=== PATIENT | male | born 1945 | race Caucasian/White ===

== ENCOUNTER 2018-05-04 06:00 | Inpatient (IN) ==
[2018-05-04] MEDS ORDERED: DUONEB (A & A) INH ONE ×2 (06:09→07:04)
--- NOTE | 2018-05-04 06:17 | PROVIDER DOCUMENTATION ---
HPI-General Adult - General Stated Complaint: sob Time Seen by Provider: 05/04/18 06:03 Source: patient Allergies/Adverse Reactions: Patient Allergies Allergy/AdvReac Type Severity Reaction Status Date / Time No Known Allergies Allergy Verified 09/17/17 15:51 Home Medications: Home Medication List Medication Instructions Recorded Confirmed Last Taken Type Propylene Glycol/Peg Oph Soln 1 drop BOTH EYES TID 09/17/17 05/04/18 09/17/17 History [Systane Eye Drops] Ranitidine [Zantac] 150 mg PO BID 09/17/17 05/04/18 09/17/17 History Amlodipine Besylate 5 mg PO QAM 02/11/18 05/04/18 Unknown History Aspirin 81 mg PO QAM 02/11/18 05/04/18 Unknown History Budesonide/Formoterol Fumarate 2 puff INH BID 02/11/18 05/04/18 Unknown History [Symbicort 160-4.5 Mcg Inhaler] Calcium Carbonate/Vitamin D3 1 each PO QAM 02/11/18 05/04/18 Unknown History [Oyster Shell 500-Vit D3 200 Tb] Clopidogrel [Plavix] 75 mg PO QAM 02/11/18 05/04/18 Unknown History Cyanocobalamin (Vitamin B-12) 500 mcg PO QAM 02/11/18 05/04/18 Unknown History [B-12] Folic Acid 2 mg PO QAM 02/11/18 05/04/18 Unknown History Multivitamin,Therapeutic [Thera] 1 each PO QAM 02/11/18 05/04/18 Unknown History Sertraline HCl 50 mg PO QAM 02/11/18 05/04/18 Unknown History Tiotropium [place] Inhaler 1 puff INH QAM 02/11/18 05/04/18 Unknown History [Spiriva] Albuterol 2.5MG/Ipratrop 0.5MG 3 ml INH RTQ4H neb 02/17/18 05/04/18 Unknown Rx [Duoneb (A & A)] Docusate Sodium 100 mg PO BID 05/04/18 05/04/18 Unknown History Guaifenesin/Pseudoephedrne HCl 1 each PO BID 05/04/18 05/04/18 Unknown History [Mucinex D ER Tablet] Protein Hydrolysate,Milk [Liquid 30 ml PO QAM 05/04/18 05/04/18 Unknown History Protein Fortifier] - History of Present Illness -Gen Adult Nature of Presenting Problems: 72 y/o M presents to the ED complaining of 1 week of worsening cough. States this began mildly and has worsened and now he feels short of breath. No fever no chest pain. Has not taken anything for his symptoms. Review of Systems - Adult - REVIEW OF SYSTEMS - ADULT Constitutional: reports: no symptoms reported Eyes: reports: no symptoms reported Ears, Nose, Mouth & Throat: reports: no symptoms reported Cardiovascular: denies: chest pain Respiratory: reports: cough, shortness of breath Gastrointestinal: reports: no symptoms reported Genitourinary: reports: no symptoms reported Musculoskeletal: reports: no symptoms reported Integumentary: reports: no symptoms reported Neurological: reports: no symptoms reported Psychiatric: reports: no symptoms reported Endocrine: reports: no symptoms reported Hematologic/Lymphatic: reports: no symptoms reported Allergic/Immunologic: reports: no symptoms reported All Other Systems: Reviewed and Negative Past History - Adult - PAST MEDICAL HISTORY-ADULT Review of Records: reports: Old Records Reviewed, Nursing Assessment Review, Medications Reviewed, Social history reviewed & non-contributory. Major Childhood Illnesses: reports: denies history Cardiovascular: reports: CHF Respiratory: reports: COPD, other (home oxygen) Gastrointestinal: reports: denies history Obstetrical/Gynecological: reports: denies history Genitourinary: reports: denies history Musculoskeletal: reports: denies history Neurological: reports: denies history Endocrine/Immune: reports: denies history Other Conditions: reports: denies history - IMMUNIZATION STATUS Childhood Immunizations: See Nurse Assessment Flu Vaccine: See Nurse Assessment - FAMILY HISTORY Family History: reviewed, not pertinent Physical Exam-General - PHYSICAL EXAM-ADULT Initial Vital Signs Reviewed: Yes - CONSTITUTIONAL General Appearance: appears well, alert, no apparent distress - EYES Eyes: PERRL/EOMI - HEAD, EARS, NOSE, MOUTH & THROAT HENMT: normocephalic/atraumatic, moist mucous membranes, normal ENT inspection - NECK Neck: non-tender, full range of motion, supple - RESPIRATORY Respiratory: chest non-tender, rhonchi (BL bases), wheezing (mild diffuse) - GASTROINTESTINAL (ABDOMEN) Abdominal Exam: non tender, soft - MUSCULOSKELETAL Back Exam: normal inspection, no vertebral tenderness Extremity: normal range of motion, non-tender, no pedal edema - SKIN Integumentary: normal color, normal turgor, warm/dry - NEUROLOGIC Neurologic: grossly normal, no motor/sensory deficits - PSYCHIATRIC Psych/Mental Status: normal mood/affect, normal thought content, normal thought process, oriented x 3 Progress - PLAN OF CARE/RESULTS Progress/Plan/Lab Results: Orders Category Date Time Status IV Insertion ORDERED Care 05/04/18 06:09 Ordered CHEST-1 VIEW [RAD] Stat Exams 05/04/18 06:09 Ordered CHEST-PORTABLE [RAD] Stat Exams 05/04/18 06:03 Ordered BASIC METABOLIC PANEL [CHEM] Stat Lab 05/04/18 06:09 Uncollected BLOOD CULTURE [BLDCUL] Stat Lab 05/04/18 06:09 Uncollected CBC WITH DIFF [HEME] Stat Lab 05/04/18 06:09 Uncollected LACTATE, PLASMA [CHEM] Stat Lab 05/04/18 06:09 Uncollected PRO B-NATRIURETIC PEPTIDE Stat Lab 05/04/18 06:09 Uncollected TROPONIN T Stat Lab 05/04/18 06:09 Uncollected Albuterol 2.5MG/Ipratrop 0.5MG [Duoneb (A & A)] Med 05/04/18 06:09 Once 3 ml INH NOW ONE Aerosol Treatments Routine Oth 05/04/18 06:10 Ordered Aerosol Treatments Stat Oth 05/04/18 06:10 Ordered EKG [EKG] Stat Ther 05/04/18 06:03 Ordered Cough and dyspnea with bronchospasm. Will treat and will further evaluate for causes including but not limited to pna, bronchitis, influenza, acs, chf exacerbation, COPD exacerbation. Result Diagrams: 05/04/18 06:40 05/04/18 07:35 - REASSESSMENT Reassessment #1 Time Reassessed: 07:05 Status: improving (Seen and examined by me. Case discussed with Dr. Novoa at shift change. Awaiting labs and likely admission for HCAP.) Reassessment #2 Time Reassessed: 07:49 Status: improving (Patient has 2 SIRS criteria (elevated RR and WBC), so makes criteria for Sepsis. Awaiting lactate and chemistry to see if has Severe Sepsis ) Reassessment #3 Time Reassessed: 08:25 Status: improving - EKG 1 Time of EKG reading by physician:: 07:48 (done at 0744) EKG Read and Signed by:: Antione Damon EKG Interpretation (*Must complete 3 of following elements*): Abnormal Rate: 82 Rhythm: NSR [place]: left QRS: RBB, other (artifact present) NV Interval: normal ST Wave: non-specific ST changes Comments: prolonged QTc (556mSec) - XRAY 1 XRAY Study: Chest Impression: Abnormal, See EMR Report (EXAM: CHEST-1 VIEW 05/04/2018 HISTORY: cough TECHNIQUE: AP portable upright at 0619 COMMENT: There is ill-defined opacity in the right lower lobe and to some extent in the left base. This has not changed significantly since 03/08/2018. It is slightly worse than on 2017. IMPRESSION: Bibasilar atelectasis and/or pneumonia. This may be superimposed on fibrosis. Electronically signed by Steve Cassidy 05/04/2018 6: 56 AM 05/04/18 0656 Interpreting Physician: Steve Cassidy MD Dictated Date/Time: 05/04/18 0655 cc: Rose Novoa MD; Stephan Wilde MD) - CONSULTS/PCP/HOSPITALIST Notification #1 *Consult/PCP/Hospitalist*: CHAIM Leary Time Discussed: 08:25 (Admit to [facility]) Consult Disposition: Will see in ED - CHANGE OF SHIFT REPORT (ED Provider) 1 Report Given and Care Transferred to:: Dr. Damon Time of Transfer: 07:00 Items Pending: Other (pending labs, CXR and final disposition) Departure - Departure Date of Disposition Decision: 05/04/18 Time of Disposition Decision: 08:25 DIAGNOSIS: HCAP (healthcare-associated pneumonia), Sepsis without acute organ dysfunction , COPD exacerbation Disposition: ADMITTED INPATIENT 09 Certified Medical Emergency: Emergent Condition: Fair Referrals and Follow-Ups: Stephan Wilde MD [Primary Care Provider] - - Critical Care Note This patient required my direct & personal management of CC.: Yes Total Time (mins): 38 Critical Care Statement: This patient required my direct personal management to treat or rule out processes, the absence of which, could potentiallly result in sudden, clinically significant life or limb threatening deterioration. Attestation - Physician/ LA Attestation Patient care was provided by Advanced Practice Provider:: No The physician spent face to face time with patient:: Yes Advanced Practice Provider documentation review:: Supervising physician onsite and consulted in the evaluation and care of this patient. The physician did have a face to face encounter with the patient.
--- NOTE | 2018-05-04 06:58 | Diag Imaging Result Doc PS360 ---
EXAM: CHEST-1 VIEW 05/04/2018 HISTORY: cough TECHNIQUE: AP portable upright at 0619 COMMENT: There is ill-defined opacity in the right lower lobe and to some extent in the left base. This has not changed significantly since 03/08/2018. It is slightly worse than on 02/17/2018. IMPRESSION: Bibasilar atelectasis and/or pneumonia. This may be superimposed on fibrosis. Electronically signed by Steve Cassidy 05/04/2018 6:56 AM
[2018-05-04] MEDS ORDERED: ZOSYN 3.375 GM in NS 50 ML IV ONE (07:01)
[2018-05-04] MEDS ORDERED: VANCOMYCIN 1 GM/NS 1 GM/250 ML IVPB IV ONE (07:01)
[2018-05-04] MEDS ORDERED: NS 1,000 ML IV ONE ×2 (07:02→08:47)
[2018-05-04] MEDS ORDERED: SOLU-MEDROL IV ONE (07:04)
[2018-05-04 07:19] LABS: BASO# 0.12 X1000 (0.0-0.2); BASO% 0.8 % (0.0-0.8); EOS# 0.74 X1000 (0.0-0.7); HEMATOCRIT 38.6 % (42.0-52.0); HEMOGLOBIN 12.1 g/dL (14.0-18.0); IMM GRAN# 0.21 X1000 (0.0-0.04); IMM GRAN% 1.4 % (0.0-0.5); LYMPH# 1.93 X1000 (1.2-3.4); LYMPH% 12.9 % (20.5-51.1); MCH 29.4 PG (27-31); MCHC 31.3 g/dL (33-37); MCV 93.9 FL (81-99); MONO# 1.88 X1000 (0.11-0.59); MONO% 12.6 % (1.7-9.3); MPV 10.3 FL (7.4-10.4); NEUT# 10.06 X1000 (1.4-6.5); NEUT% 67.3 % (42.2-75.2); PLT 426 X1000 (130-400); RBC 4.11 XMIL (4.7-6.1); RDW 14.3 % (11.5-14.5); WBC 14.94 X1000 (4.8-10.8)
[2018-05-04 07:27] LABS: ALLEN TEST YES; BE 6.7 mmoll (-3.0-3.0); BLOOD TYPE ARTERIAL; HCO3-(ACT) 30.1 mmoll (20.0-26.0); METHB 1.1 % (0.0-1.5); O2(CT) 15.8 mL/dL (15.0-23.0); O2HB 93.3 % (95.0-99.0); PO2(98.6) 65 mmHg (60-100); SAMPLE BLOOD; SAO2 96.2 % (95.0-100.0)
[2018-05-04 07:28] LABS: MODALITY CANNULA; PCO2(98.6) 53 mmHg (35-45)
--- NOTE | 2018-05-04 07:58 | EKG Report ---
Test Performed on : 05/04/2018 07:44:28 AM Test Reason : SOB Blood Pressure : / mmHG Vent. Rate : 082 BPM Atrial Rate : 082 BPM P-R Int : 132 ms QRS Dur : 132 ms QT Int : 476 ms P-R-T Axes : 000 -39 -47 degrees QTc Int : 556 ms Normal sinus rhythm. Left axis deviation Right bundle branch block Abnormal ECG When compared with ECG of 18-SEP-2017 07:43, QT has lengthened Unconfirmed Result
[2018-05-04 08:16] LABS: AGAP 10; ALB/GLOB RATIO 1.6; ALBUMIN 4.1 g/dL (3.5-5.0); ALKALINE PHOSPHATASE 107 U/L (32-122); BUN 13 mg/dL (8-22); CALCIUM 9.2 mg/dL (8.8-10.2); CHLORIDE 100 mmol/L (98-107); COSMO 282; CREATININE 0.7 mg/dL (0.7-1.2); ESTIMATED GFR > 60; GLUCOSE 114 mg/dL (70-104); GOT 16 U/L (10-34); GPT 17 U/L (10-44); POTASSIUM 4.5 mmol/L (3.5-5.1); SODIUM 141 mmol/L (136-145); TCO2 31 mmol/L (25-35); TOTAL BILIRUBIN 0.17 mg/dL (0.20-1.00); TOTAL PROTEIN 6.6 g/dL (6.3-8.3)
[2018-05-04] MEDS ORDERED: DUONEB (A & A) INH PRN (08:47)
[2018-05-04] MEDS ORDERED: LEVAQUIN 750 MG/D5W 750 MG/150 ML IVPB IV SCH (09:00)
[2018-05-04] MEDS ORDERED: ROCEPHIN 1 GM in NS 50 ML IV SCH (09:00)
--- NOTE | 2018-05-04 09:19 | HISTORY AND PHYSICAL ---
HISTORY OF PRESENT ILLNESS: The patient is from [facility], admitted on 05/04/2018. This is a 72-year-old who complains of cough, shortness of breath, and weakness. He has underlying COPD and is on oxygen at night. States for a month, he reports he has been having trouble breathing but apparently, in the last couple days, he has had more cough. He denies fever or chills or diaphoresis. He says he has a cough but not productive at this point. PAST MEDICAL HISTORY: 1. 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 2. Hypertension. 3. COPD with long history of smoking. He said he quit 6 months ago. 4. Atrial fibrillation. 5. In the emergency room, he had a chest x-ray with bibasilar atelectasis versus pneumonia. He has superimposed fibrosis. There is an ill-defined opacity in the right lower lobe and to some extent in the left so I am going to admit him for COPD exacerbation and bibasilar pneumonia. PAST SURGICAL HISTORY: No history of surgeries by his report Past medical history reviewed again. 1. CVA 5 years ago with right hemiparesis. 2. Hypertension. 3. COPD. 4. Paroxysmal atrial fibrillation. SOCIAL HISTORY: He quit smoking, he said, 6 months ago. He is at [facility]. 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 Has 3 children, 1 daughter who lives around here. ALLERGIES: No known drug allergies. FAMILY HISTORY: Positive for hypertension. REVIEW OF SYSTEMS: Constitutional: He does not report any fever or chills. No weight gain or loss. HEENT: No complaints of visual or hearing changes. Neck: No neck pain. No cervical adenopathy. Respiratory: No increased work of breathing or dyspnea. Cardiovascular: No chest pain or tachy palpitations. Gastrointestinal and Genitourinary: No gross hematuria or dysuria. Musculoskeletal and Neurologic: Right-sided partial weakness from his stroke but nothing has changed by his report as far as new focal deficits. PHYSICAL EXAMINATION: GENERAL: Today, in the emergency room, he is awake and alert, pleasant, oriented x3. VITAL SIGNS: Temperature 97.9 degrees, pulse 83, respirations 20, blood pressure 110/61. HEENT: Pupils are equal and round. RESPIRATORY: Lungs are clear anterolateral. NECK: No distended neck veins. Neck was supple. No appreciation of cervical adenopathy. CARDIOVASCULAR EXAMINATION: Regular rhythm and rate without murmur or S3. ABDOMEN: Soft, nondistended, nontender. EXTREMITIES: No pedal edema. He does state that occasionally his right lower extremity has some swelling to it. INTEGUMENTARY: I did not appreciate any rashes or nasal or oral mucosal lesions. Conjunctivae were pink, sclerae clear. LABORATORY DATA: White blood cell count 14,940, hematocrit is 38, platelet count 426,000. Sodium 141, potassium 4.5, chloride 100, BUN 13, creatinine 0.7. AST is 16, ALT is 17, alkaline phosphatase is 107. Blood gas is pH is 7.40, pCO2 53, PO2 65, O2 saturation is 93% and that was on 36% FiO2. His chest x-ray reviewed above but bibasilar atelectasis and suspect possible infiltrate or pneumonia, bibasilar superimposed fibrosis. ASSESSMENT AND PLAN: 1. Underlying chronic obstructive pulmonary disease, chronic obstructive pulmonary disease exacerbation with what appears to be bibasilar atelectasis and bibasilar pneumonia. He is from [facility] so we will treat him for community-acquired pneumonia. I guess we will put him on Rocephin and Levaquin with Levaquin 750 mg intravenous every 24 hours and Rocephin 1 g intravenous every 24 hours. We will give him some normal saline and run it at 85 mL an hour. Put him on some DuoNebs. I will put him on a steroid inhaler, using Advair which I think he was taking before. 2. History of hypertension. Continue his amlodipine 5 mg every morning. 3. History of cerebrovascular accident 5 years ago. He is on Plavix 75 mg a day. Continue that. 4. History of B12 deficiency. Continue his B12. 5. History of constipation. Continue his docusate. 6. Apparently a history of gastroesophageal reflux and gastritis so he is on Zantac 150 mg twice a day. We will continue that. 7. Continue his Zoloft 50 mg every morning. He was on Spiriva. We will continue that 1 puff a day and he was on budesonide or Symbicort so I will give him his Symbicort rather than put him on Advair. We will obtain sputum cultures, blood cultures x2. Put him on a clinical research monitor with his history of paroxysmal atrial fibrillation. Looking back, I do not know that we have ever had ab echocardiogram but he has no history of left ventricular dysfunction. I did see where he had a barium swallow done in March of 2016. cc: Danny Bustamante MD
[2018-05-04 10:04] LABS: FREE T4 1.18 ng/dL (0.93-1.70)
[2018-05-04] MEDS: THERA M PLUS PO SCH (10:25)
[2018-05-04] MEDS: VITAMIN B-12 PO SCH (10:25)
[2018-05-04] MEDS: ASPIRIN PO SCH (10:26)
[2018-05-04] MEDS: PATIENT'S OWN MED PO SCH (10:26)
[2018-05-04] MEDS: LOVENOX SUBQ SCH (10:26)
[2018-05-04] MEDS: FOLIC ACID PO SCH (10:26)
[2018-05-04] MEDS: COLACE PO SCH ×2 (10:26→22:51)
[2018-05-04] MEDS: PLAVIX PO SCH (10:26)
[2018-05-04] MEDS: OSCAL 500 + D PO SCH (10:26)
[2018-05-04] MEDS: ZANTAC PO SCH ×2 (10:26→22:51)
[2018-05-04] MEDS: NORVASC PO SCH (10:26)
[2018-05-04] MEDS: ZOLOFT PO SCH (10:26)
[2018-05-04] MEDS: SYSTANE EYE DROPS BOTH EYES SCH ×3 (10:27→16:08)
[2018-05-04] MEDS: SYMBICORT 160/4.5 MICROGM INHALER INH SCH ×2 (11:12→19:35)
[2018-05-04] MEDS: SPIRIVA INH SCH (11:12)
[2018-05-04] MEDS: DUONEB (A & A) INH SCH ×4 (11:13→23:15)
[2018-05-05] MEDS: DUONEB (A & A) INH SCH ×6 (03:42→23:05)
[2018-05-05 07:50] LABS: BASO# 0.03 X1000 (0.0-0.2); BASO% 0.2 % (0.0-0.8); HEMATOCRIT 35.3 % (42.0-52.0); HEMOGLOBIN 11.1 g/dL (14.0-18.0); IMM GRAN# 0.32 X1000 (0.0-0.04); IMM GRAN% 1.7 % (0.0-0.5); LYMPH# 1.61 X1000 (1.2-3.4); LYMPH% 8.8 % (20.5-51.1); MCH 29.3 PG (27-31); MCHC 31.4 g/dL (33-37); MCV 93.1 FL (81-99); MONO% 11.4 % (1.7-9.3); NEUT# 14.31 X1000 (1.4-6.5); NEUT% 77.9 % (42.2-75.2); PLT 406 X1000 (130-400); RBC 3.79 XMIL (4.7-6.1); RDW 14.1 % (11.5-14.5); WBC 18.37 X1000 (4.8-10.8)
[2018-05-05] MEDS: SPIRIVA INH SCH (07:54)
[2018-05-05] MEDS: SYMBICORT 160/4.5 MICROGM INHALER INH SCH ×2 (07:54→19:25)
[2018-05-05 08:21] LABS: AGAP 11; BUN 16 mg/dL (8-22); CALCIUM 8.6 mg/dL (8.8-10.2); CHLORIDE 100 mmol/L (98-107); COSMO 277; CREATININE 0.6 mg/dL (0.7-1.2); ESTIMATED GFR > 60; GLUCOSE 109 mg/dL (70-104); MAGNESIUM 1.9 mg/dL (1.5-2.7); POTASSIUM 4.3 mmol/L (3.5-5.1); SODIUM 138 mmol/L (136-145); TCO2 27 mmol/L (25-35)
[2018-05-05] MEDS ORDERED: ROCEPHIN 1 GM in NS 50 ML IV SCH (09:00)
[2018-05-05] MEDS ORDERED: LEVAQUIN 750 MG/D5W 750 MG/150 ML IVPB IV SCH (09:00)
[2018-05-05] MEDS: MAXIPIME 2 GM in NS 100 ML IV SCH (11:24)
[2018-05-05] MEDS: COLACE PO SCH ×2 (11:32→22:29)
[2018-05-05] MEDS: ZOLOFT PO SCH (11:32)
[2018-05-05] MEDS: FOLIC ACID PO SCH (11:32)
[2018-05-05] MEDS: ASPIRIN PO SCH (11:32)
[2018-05-05] MEDS: LOVENOX SUBQ SCH (11:32)
[2018-05-05] MEDS: PATIENT'S OWN MED PO SCH (11:33)
[2018-05-05] MEDS: VITAMIN B-12 PO SCH (11:33)
[2018-05-05] MEDS: PLAVIX PO SCH (11:33)
[2018-05-05] MEDS: OSCAL 500 + D PO SCH (11:33)
[2018-05-05] MEDS: ZANTAC PO SCH ×2 (11:33→22:29)
[2018-05-05] MEDS: NORVASC PO SCH (11:33)
[2018-05-05] MEDS: THERA M PLUS PO SCH (11:33)
[2018-05-05] MEDS: SYSTANE EYE DROPS BOTH EYES SCH ×3 (11:34→18:18)
[2018-05-05] MEDS: LACTULOSE PO SCH ×2 (13:22→22:29)
[2018-05-05] MEDS: TESSALON PO SCH ×2 (13:22→18:18)
[2018-05-05] MEDS: ZYVOX 600 MG/D5W 600 MG/300 ML IVPB IV SCH ×2 (13:23→22:29)
[2018-05-05] MEDS: MIRALAX PO SCH ×2 (13:23→22:29)
--- NOTE | 2018-05-05 17:59 | PROGRESS NOTE ---
DATE: 05/05/2018 SUBJECTIVE: The patient is resting comfortably. He does complain of shortness of breath. OBJECTIVE: Vital Signs: Temperature 98 degrees, blood pressure 139/58, heart rate 90, respirations 20, O2 saturations 96% on 3 L nasal cannula. General: This is a chronically ill- appearing elderly male lying in bed in no acute distress. Heart: S1, S2 normal. Regular rate and rhythm. Lungs: Coarse breath sounds. Abdomen: Positive bowel sounds. Soft, nontender, nondistended. Extremities: No edema. No cyanosis. Neurologic: The patient is alert and oriented x3. LABS: White blood cell count 18, hemoglobin 11, hematocrit 35, platelets 406, 000. Sodium 138, potassium 4.3, chloride 100, BUN 16, creatinine 0.6, glucose 106, magnesium 1.9. ASSESSMENT AND PLAN: 1. Pneumonia. We will switch the patient to Zyvox and cefepime. We will also check a procalcitonin level and immunoglobulin level. 2. Chronic obstructive pulmonary disease. Continue with bronchodilator therapy and supplemental oxygen. 3. Constipation. We will start the patient on scheduled laxative therapy. 4. Situational depression. Continue on Zoloft. 5. Deep vein thrombosis prophylaxis. Continue on Lovenox. cc: Ryann Jeffries MD MTDD
[2018-05-05 18:37] LABS: URINE SOURCE CLEAN CATCH
[2018-05-05 18:54] LABS: BILIRUBIN URINE NEGATIVE (NEGATIVE); BLOOD URINE NEGATIVE (NEGATIVE); COLOR YELLOW; GLUCOSE URINE NEGATIVE (NEGATIVE); KETONE URINE NEGATIVE (NEGATIVE); LEUKOCYTES URINE NEGATIVE (NEGATIVE); NITRITE URINE NEGATIVE (NEGATIVE); PROTEIN URINE NEGATIVE (NEGATIVE); TURBIDITY URINE CLEAR (CLEAR); UROBILINOGEN URINE NORMAL (NORMAL)
[2018-05-05 18:57] LABS: UR EPITHELIAL CELLS <10 /HPF (<10); URINE BACTERIA NEGATIVE /HPF; URINE RBC <10 /HPF (<10); URINE WBC <10 /HPF (<10)
[2018-05-05] MEDS: ROBITUSSIN-DM PO PRN (22:28)
[2018-05-05] MEDS: DULCOLAX PR SCH (22:29)
[2018-05-06] MEDS: MAXIPIME 2 GM in NS 100 ML IV SCH ×2 (01:02→13:50)
[2018-05-06] MEDS: DUONEB (A & A) INH SCH ×6 (03:27→22:51)
--- NOTE | 2018-05-06 07:13 | Diag Imaging Result Doc PS360 ---
EXAM: CHEST-PORTABLE 05/06/2018 HISTORY: Dyspnea TECHNIQUE: AP portable at 0533 COMMENT: There is some platelike opacity in both lung bases most likely representing atelectasis. This is actually slightly improved on the right compared to 05/04/2018 although the inspiration is slightly less optimal. IMPRESSION: Slightly improved bibasilar atelectasis. Electronically signed by Steve Cassidy 05/06/2018 7:10 AM
[2018-05-06 07:32] LABS: BASO# 0.13 X1000 (0.0-0.2); BASO% 0.8 % (0.0-0.8); EOS# 0.63 X1000 (0.0-0.7); HEMATOCRIT 37.7 % (42.0-52.0); HEMOGLOBIN 11.7 g/dL (14.0-18.0); IMM GRAN# 0.53 X1000 (0.0-0.04); IMM GRAN% 3.4 % (0.0-0.5); LYMPH# 3.13 X1000 (1.2-3.4); LYMPH% 19.8 % (20.5-51.1); MCH 29.5 PG (27-31); MONO# 2.05 X1000 (0.11-0.59); NEUT# 9.34 X1000 (1.4-6.5); PLT 415 X1000 (130-400); RBC 3.97 XMIL (4.7-6.1); RDW 14.4 % (11.5-14.5); WBC 15.81 X1000 (4.8-10.8)
[2018-05-06] MEDS: SPIRIVA INH SCH (07:35)
[2018-05-06] MEDS: SYMBICORT 160/4.5 MICROGM INHALER INH SCH ×2 (07:35→20:15)
[2018-05-06 07:42] LABS: AGAP 11; BUN 15 mg/dL (8-22); CALCIUM 8.6 mg/dL (8.8-10.2); CHLORIDE 102 mmol/L (98-107); COSMO 280; CREATININE 0.7 mg/dL (0.7-1.2); ESTIMATED GFR > 60; GLUCOSE 99 mg/dL (70-104); POTASSIUM 4.2 mmol/L (3.5-5.1); SODIUM 140 mmol/L (136-145); TCO2 27 mmol/L (25-35)
[2018-05-06 07:54] LABS: BANDS 6 % (0-1); EOS 10 % (1-10); LYMPHS 12 % (21-51); MONO 8 % (1-9); SEGS 58 % (42-75)
[2018-05-06] MEDS: ROBITUSSIN-DM PO PRN ×3 (09:39→22:28)
[2018-05-06] MEDS: ZYVOX 600 MG/D5W 600 MG/300 ML IVPB IV SCH ×2 (09:46→22:21)
[2018-05-06] MEDS: MIRALAX PO SCH ×2 (10:14→22:21)
[2018-05-06] MEDS: ASPIRIN PO SCH (10:15)
[2018-05-06] MEDS: ZANTAC PO SCH ×2 (10:15→22:22)
[2018-05-06] MEDS: PLAVIX PO SCH (10:15)
[2018-05-06] MEDS: LACTULOSE PO SCH ×2 (10:15→22:21)
[2018-05-06] MEDS: NORVASC PO SCH (10:16)
[2018-05-06] MEDS: OSCAL 500 + D PO SCH (10:16)
[2018-05-06] MEDS: TESSALON PO SCH ×3 (10:16→22:22)
[2018-05-06] MEDS: COLACE PO SCH ×2 (10:16→22:22)
[2018-05-06] MEDS: ZOLOFT PO SCH (10:16)
[2018-05-06] MEDS: LOVENOX SUBQ SCH (10:17)
[2018-05-06] MEDS: PATIENT'S OWN MED PO SCH (10:23)
[2018-05-06] MEDS: SYSTANE EYE DROPS BOTH EYES SCH ×3 (11:12→22:22)
[2018-05-06] MEDS: DULCOLAX PR SCH (22:22)
[2018-05-07] MEDS: MAXIPIME 2 GM in NS 100 ML IV SCH ×2 (01:31→13:55)
[2018-05-07] MEDS: DUONEB (A & A) INH SCH ×6 (03:55→23:20)
--- NOTE | 2018-05-07 05:43 | PROGRESS NOTE ---
DATE: 05/06/2018 SUBJECTIVE: The patient is resting comfortably in bed. No acute events noted overnight. OBJECTIVE: Vital Signs: Temperature 97 degrees, blood pressure 125/61, heart rate 83, respirations 18, O2 saturation is 96% on 3 L nasal cannula. General: This is a chronically ill- appearing elderly male, lying in bed in no acute distress. Heart: S1, S2 normal. Lungs: Equal air entry bilaterally. No wheezing. No rales. Abdomen: Positive bowel sounds. Soft, nontender, nondistended. Extremities: No edema, no cyanosis. Neurologic: The patient is alert and oriented. LABORATORY DATA: White blood cell count 15, hemoglobin 11, hematocrit 37, platelets 415,000. Sodium 140, potassium 4.2, chloride 102, CO2 of 27, BUN 15, creatinine 0.7, glucose 99. ASSESSMENT AND PLAN: 1. Pneumonia. Continue on Zyvox and cefepime. 2. Chronic obstructive pulmonary disease. Continue with bronchodilator therapy and supplemental oxygen. 3. Constipation. Continue with laxative therapy. 4. Situational depression. Continue on Zoloft. 5. Deep vein thrombosis prophylaxis. Continue on Lovenox. 6. Continue with physical therapy. cc: Ryann Jeffries MD
--- NOTE | 2018-05-07 07:32 | Diag Imaging Result Doc PS360 ---
EXAM: CHEST-PORTABLE HISTORY: Dyspnea TECHNIQUE: Portable chest single view COMPARISON: 05/06/2018 FINDINGS: Poor inspiratory effort. Mild pulmonary edema remains. No consolidation. Mild increased interstitial markings in the lung bases persist. No cardiomegaly. No pleural effusions identified. IMPRESSION: Stable chest Electronically signed by Yusuf Love 05/07/2018 7:30 AM
[2018-05-07 07:56] LABS: BASO# 0.13 X1000 (0.0-0.2); BASO% 0.8 % (0.0-0.8); EOS# 0.75 X1000 (0.0-0.7); EOS% 4.5 % (0.0-10.0); HEMATOCRIT 37.1 % (42.0-52.0); HEMOGLOBIN 11.6 g/dL (14.0-18.0); IMM GRAN# 0.43 X1000 (0.0-0.04); IMM GRAN% 2.6 % (0.0-0.5); LYMPH# 2.09 X1000 (1.2-3.4); LYMPH% 12.7 % (20.5-51.1); MCH 29.4 PG (27-31); MCHC 31.3 g/dL (33-37); MCV 94.2 FL (81-99); MONO# 1.97 X1000 (0.11-0.59); MONO% 11.9 % (1.7-9.3); NEUT# 11.12 X1000 (1.4-6.5); NEUT% 67.5 % (42.2-75.2); PLT 397 X1000 (130-400); RBC 3.94 XMIL (4.7-6.1); RDW 14.2 % (11.5-14.5); WBC 16.49 X1000 (4.8-10.8)
[2018-05-07 08:27] LABS: AGAP 9; BUN 13 mg/dL (8-22); CALCIUM 7.9 mg/dL (8.8-10.2); CHLORIDE 100 mmol/L (98-107); COSMO 276; CREATININE 0.6 mg/dL (0.7-1.2); ESTIMATED GFR > 60; GLUCOSE 107 mg/dL (70-104); MAGNESIUM 2.1 mg/dL (1.5-2.7); SODIUM 138 mmol/L (136-145); TCO2 29 mmol/L (25-35)
[2018-05-07] MEDS: SYMBICORT 160/4.5 MICROGM INHALER INH SCH ×2 (08:34→19:35)
[2018-05-07] MEDS: SPIRIVA INH SCH (08:39)
[2018-05-07] MEDS: TESSALON PO SCH ×3 (09:58→18:20)
[2018-05-07] MEDS: NORVASC PO SCH (09:58)
[2018-05-07] MEDS: MIRALAX PO SCH ×2 (09:58→20:35)
[2018-05-07] MEDS: LACTULOSE PO SCH ×2 (09:58→20:34)
[2018-05-07] MEDS: ZANTAC PO SCH ×2 (09:58→20:34)
[2018-05-07] MEDS: PLAVIX PO SCH (09:59)
[2018-05-07] MEDS: ASPIRIN PO SCH (09:59)
[2018-05-07] MEDS: OSCAL 500 + D PO SCH (09:59)
[2018-05-07] MEDS: ZOLOFT PO SCH (10:00)
[2018-05-07] MEDS: LOVENOX SUBQ SCH (10:01)
[2018-05-07] MEDS: COLACE PO SCH ×2 (10:01→20:34)
[2018-05-07] MEDS: PATIENT'S OWN MED PO SCH (10:02)
[2018-05-07] MEDS: SYSTANE EYE DROPS BOTH EYES SCH ×3 (10:03→18:21)
[2018-05-07] MEDS: ZYVOX 600 MG/D5W 600 MG/300 ML IVPB IV SCH ×2 (11:08→21:53)
--- NOTE | 2018-05-07 16:47 | PROGRESS NOTE ---
DATE: 05/07/2018 SUBJECTIVE: The patient is resting comfortably in bed. He reports that he still has a productive cough, but his shortness of breath has improved. OBJECTIVE: Vital Signs: Temperature 97.9 degrees, blood pressure 136/60, heart rate 87, respirations 16, O2 saturation is 94% on 3 L nasal cannula. General: This is a chronically ill- appearing, elderly male lying in bed, in no acute distress. Heart: S1, S2 normal. Regular rate and rhythm. Lungs: Equal air entry bilaterally. No crackles. No rales. Abdomen: Positive bowel sounds. Soft, nontender, nondistended. Extremities: No edema. No cyanosis. Neurologic: The patient is alert and oriented x3. However, he is hard of hearing. LABS: White blood cell count 16, hemoglobin 11, hematocrit 37, platelets 397,000. Sodium 139, potassium 4, BUN 13, creatinine 0.6, potassium 4. ASSESSMENT AND PLAN: 1. Pneumonia. Improved. Continue on cefepime and Zyvox. 2. Chronic obstructive pulmonary disease. Continue with bronchodilator therapy and supplemental oxygen. 3. Constipation. Continue on laxative therapy. 4. Situational depression. Continue on Zoloft. 5. Deep vein thrombosis prophylaxis. Continue on Lovenox. 6. Continue with physical therapy. cc: Ryann Jeffries MD
[2018-05-07] MEDS: DULCOLAX PR SCH (20:34)
[2018-05-07] MEDS ORDERED: NS 500 ML IV SCH (21:15)
[2018-05-08] MEDS: MAXIPIME 2 GM in NS 100 ML IV SCH ×2 (01:50→16:12)
[2018-05-08] MEDS: DUONEB (A & A) INH SCH ×6 (03:30→23:20)
[2018-05-08 07:20] LABS: BASO% 0.7 % (0.0-0.8); EOS# 0.79 X1000 (0.0-0.7); EOS% 5.6 % (0.0-10.0); HEMATOCRIT 35.2 % (42.0-52.0); HEMOGLOBIN 10.9 g/dL (14.0-18.0); IMM GRAN# 0.44 X1000 (0.0-0.04); IMM GRAN% 3.1 % (0.0-0.5); LYMPH# 2.53 X1000 (1.2-3.4); LYMPH% 17.8 % (20.5-51.1); MCH 29.3 PG (27-31); MCV 94.6 FL (81-99); MONO% 10.5 % (1.7-9.3); MPV 10.1 FL (7.4-10.4); NEUT# 8.86 X1000 (1.4-6.5); NEUT% 62.3 % (42.2-75.2); PLT 365 X1000 (130-400); RBC 3.72 XMIL (4.7-6.1); RDW 14.2 % (11.5-14.5); WBC 14.22 X1000 (4.8-10.8)
[2018-05-08 07:54] LABS: AGAP 9; BUN 11 mg/dL (8-22); CALCIUM 8.5 mg/dL (8.8-10.2); CHLORIDE 101 mmol/L (98-107); COSMO 277; CREATININE 0.7 mg/dL (0.7-1.2); ESTIMATED GFR > 60; GLUCOSE 108 mg/dL (70-104); SODIUM 139 mmol/L (136-145); TCO2 29 mmol/L (25-35)
[2018-05-08] MEDS: SPIRIVA INH SCH (07:58)
[2018-05-08] MEDS: SYMBICORT 160/4.5 MICROGM INHALER INH SCH ×2 (07:58→19:20)
[2018-05-08] MEDS: OSCAL 500 + D PO SCH (09:44)
[2018-05-08] MEDS: ASPIRIN PO SCH (09:44)
[2018-05-08] MEDS: ZOLOFT PO SCH (09:44)
[2018-05-08] MEDS: LACTULOSE PO SCH ×2 (09:45→20:11)
[2018-05-08] MEDS: COLACE PO SCH ×2 (09:45→20:10)
[2018-05-08] MEDS: NORVASC PO SCH (09:45)
[2018-05-08] MEDS: SYSTANE EYE DROPS BOTH EYES SCH ×3 (09:46→17:45)
[2018-05-08] MEDS: PATIENT'S OWN MED PO SCH (09:46)
[2018-05-08] MEDS: TESSALON PO SCH ×3 (09:46→19:00)
[2018-05-08] MEDS: PLAVIX PO SCH (09:46)
[2018-05-08] MEDS: MIRALAX PO SCH ×2 (09:46→20:10)
[2018-05-08] MEDS: ZYVOX 600 MG/D5W 600 MG/300 ML IVPB IV SCH ×2 (09:46→22:50)
[2018-05-08] MEDS: ZANTAC PO SCH ×2 (09:47→20:11)
[2018-05-08] MEDS: LOVENOX SUBQ SCH (09:47)
--- NOTE | 2018-05-08 15:29 | PROGRESS NOTE ---
DATE: 05/08/2018 SUBJECTIVE: The patient is resting comfortably in bed. He does complain of some mild shortness of breath. He is having regular bowel movements. OBJECTIVE: Vital Signs: Temperature 98.3 degrees, blood pressure 148/63, heart rate 70, respirations 18, and O2 saturation 99% on 4 L nasal cannula. General: This is a chronically ill- appearing elderly male lying in bed in no acute distress. Heart: S1, S2 normal. Regular rate and rhythm. Lungs: Equal air entry bilaterally. No wheezing. No rales. Abdomen: Positive bowel sounds. Soft, nontender, and nondistended. Extremities: No edema. No cyanosis. Neurologic: The patient is awake and alert. LABORATORY: White blood cell count 14, hemoglobin 10, hematocrit 35, and platelets 365,000. Sodium 139, potassium 4, chloride 101, CO2 29, BUN 11, creatinine 0.7, and glucose 108. ASSESSMENT AND PLAN: 1. Pneumonia slowly improving. Continue on cefepime and Zyvox plus bronchodilator therapy. 2. Chronic obstructive pulmonary disease. Continue on bronchodilator therapy and supplemental oxygen. 3. Situational depression. Continue on Zoloft. 4. Hypertension. Stable. 5. Deep vein thrombosis prophylaxis. Continue on Lovenox. 6. Continue with physical therapy. cc: Ryann Jeffries MD
--- NOTE | 2018-05-08 17:35 | Diag Imaging Result Doc PS360 ---
CT THORAX W/O CONTRAST - 05/08/2018 INDICATION: pneumonia COMPARISON: 03/16/2018 FINDINGS: There appears to be a small endobronchial oval density that was not present previously. This measures 6.6 mm. This is at the end of the bronchus intermedius on the right, essentially entering the right lower lobe lobar bronchus. This is a relatively low-density, essentially tissue density. Stable severe COPD. There is worsening in the mild dependent atelectasis in the posterior costophrenic angles. The nodular infiltrate in the left lower lobe has resolved. There is stable pulmonary fibrosis and linear atelectasis. Heart size remains normal. IMPRESSION: 1. Very small endobronchial body in the right bronchial tree. This may be an inhaled object such as a small piece of food or mucus debris. 2. Mixed changes from prior with overall no significant change in the advanced COPD with pulmonary fibrosis. This exam was performed using automated exposure control, adjustment of mA or kV according to patient size, and/or use of iterative reconstruction technique Electronically signed by Patrice Bradley 05/08/2018 5:33 PM
[2018-05-08] MEDS: DULCOLAX PR SCH (20:11)
[2018-05-09] MEDS ORDERED: ZOFRAN IV PRN (01:15)
[2018-05-09] MEDS: MAXIPIME 2 GM in NS 100 ML IV SCH ×2 (01:34→16:01)
[2018-05-09] MEDS: DUONEB (A & A) INH SCH ×6 (03:25→23:20)
[2018-05-09 07:03] LABS: BASO# 0.08 X1000 (0.0-0.2); BASO% 0.5 % (0.0-0.8); EOS# 0.78 X1000 (0.0-0.7); EOS% 4.9 % (0.0-10.0); HEMATOCRIT 35.5 % (42.0-52.0); HEMOGLOBIN 10.9 g/dL (14.0-18.0); IMM GRAN# 0.34 X1000 (0.0-0.04); IMM GRAN% 2.1 % (0.0-0.5); LYMPH# 1.87 X1000 (1.2-3.4); LYMPH% 11.7 % (20.5-51.1); MCH 29.2 PG (27-31); MCHC 30.7 g/dL (33-37); MCV 95.2 FL (81-99); MONO# 1.55 X1000 (0.11-0.59); MONO% 9.7 % (1.7-9.3); MPV 9.9 FL (7.4-10.4); NEUT# 11.38 X1000 (1.4-6.5); NEUT% 71.1 % (42.2-75.2); PLT 382 X1000 (130-400); RBC 3.73 XMIL (4.7-6.1); RDW 14.4 % (11.5-14.5)
[2018-05-09 07:24] LABS: AGAP 7; BUN 10 mg/dL (8-22); CALCIUM 8.5 mg/dL (8.8-10.2); CHLORIDE 101 mmol/L (98-107); COSMO 278; CREATININE 0.8 mg/dL (0.7-1.2); ESTIMATED GFR > 60; GLUCOSE 125 mg/dL (70-104); POTASSIUM 4.5 mmol/L (3.5-5.1); SODIUM 139 mmol/L (136-145); TCO2 31 mmol/L (25-35)
[2018-05-09] MEDS: SYMBICORT 160/4.5 MICROGM INHALER INH SCH ×2 (08:25→19:20)
[2018-05-09] MEDS: SPIRIVA INH SCH (08:26)
[2018-05-09] MEDS: ZYVOX 600 MG/D5W 600 MG/300 ML IVPB IV SCH ×2 (09:47→22:36)
[2018-05-09] MEDS: COLACE PO SCH ×2 (09:48→21:34)
[2018-05-09] MEDS: PLAVIX PO SCH (09:48)
[2018-05-09] MEDS: ZOLOFT PO SCH (09:48)
[2018-05-09] MEDS: ZANTAC PO SCH ×2 (09:48→21:34)
[2018-05-09] MEDS: OSCAL 500 + D PO SCH (09:49)
[2018-05-09] MEDS: ASPIRIN PO SCH (09:49)
[2018-05-09] MEDS: LOVENOX SUBQ SCH (09:49)
[2018-05-09] MEDS: LACTULOSE PO SCH ×2 (09:49→21:34)
[2018-05-09] MEDS: MIRALAX PO SCH ×2 (09:49→21:34)
[2018-05-09] MEDS: TESSALON PO SCH ×3 (09:49→17:14)
[2018-05-09] MEDS: NORVASC PO SCH (09:49)
[2018-05-09] MEDS: PATIENT'S OWN MED PO SCH (09:50)
[2018-05-09] MEDS: SYSTANE EYE DROPS BOTH EYES SCH ×3 (12:19→17:14)
--- NOTE | 2018-05-09 19:56 | PROGRESS NOTE ---
DATE: 05/09/2018 SUBJECTIVE: The patient is resting comfortably in bed. No acute events noted overnight. OBJECTIVE: Vital Signs: Temperature 98.3, blood pressure 131/54, heart rate 84, respirations 19, O2 saturation 96% on 3 L nasal cannula. General: This is a chronically ill-appearing, elderly male, lying in bed in no acute distress. Heart: S1, S2 normal. Regular rate and rhythm. Lungs: Diminished breath sounds at the bases. No wheezing. No rales. Abdomen: Positive bowel sounds. Soft, nontender, nondistended. Extremities: No edema, no cyanosis. Neurologic: The patient is hard of hearing, but alert and oriented x3. LABS: White blood cell count 16, hemoglobin 10, hematocrit 35, platelets 382. Sodium 139, potassium 4.5, chloride 101, CO2 31, BUN 10, creatinine 0.8, glucose 125. Chest CT shows a foreign body in the right bronchial tree. Advanced COPD with pulmonary fibrosis. ASSESSMENT AND PLAN: 1. Pneumonia. This appears to have improved. Continue with antibiotic therapy. 2. Foreign body in the right bronchus. The patient is scheduled for bronchoscopy on Friday. 3. Advanced chronic obstructive pulmonary disease. Aware. Continue with bronchodilator therapy and supplemental oxygen. 4. Situational depression. Continue on Zoloft. 5. Hypertension. Stable. 6. Deep vein thrombosis prophylaxis. Continue on Lovenox. cc: Ryann Jeffries MD
[2018-05-09] MEDS: DULCOLAX PR SCH (21:35)
[2018-05-09] MEDS: SOLU-MEDROL IV SCH (21:37)
--- NOTE | 2018-05-10 00:22 | CONSULTATION ---
DATE OF CONSULTATION: 05/09/2018 REQUESTING PROVIDER: Dr. Ryann Jeffries. REASON FOR CONSULTATION: Foreign body in bronchus. HISTORY OF PRESENT ILLNESS: This is a 72-year-old male with a medical history of airway penetration, COPD, stroke with right-sided weakness, hypertension, and paroxysmal atrial fibrillation. He presented to the ER on May 04, 2018, from [facility] with worsening cough for 1 week. Initial work up in the ER revealed COPD exacerbation with bibasilar pneumonia. He has been admitted to the medical floor since then for further evaluation and management. CT thorax without contrast on 05/08/2018 revealed a very small endobronchial body in the right bronchial tree, this may be an inhaled object such as a small piece of food or mucus debris, and mixed changes from previous with overall no significant change in the advanced COPD with pulmonary fibrosis. At the time of my examination, patient is lying in bed comfortably. He does have some audible wheezing with mild respiratory distress. He reports dry cough and frequent choking sensation when drinking water or sometimes even swallowing food. He denied fever, chest pain, or palpitation. PAST MEDICAL HISTORY: 1. Airway penetration with possible mild aspiration identified on barium swallow 05/26/2016. 2. COPD with ongoing tobacco use. The patient is on oxygen 3 L at home at night time. 3. Stroke with right-sided weakness about 5 years ago. Patient reports he cannot ambulate. 4. Hypertension. 5. Paroxysmal atrial fibrillation. 6. Tobacco abuse: over [id number] SOCIAL HISTORY: The patient lives at [facility]. He used to smoke 1 pack per day since he was 10-year-old, and quit about 6 months ago. He has no history of alcohol or illicit drug use. FAMILY HISTORY: Unknown. ALLERGIES: No known drug allergies. REVIEW OF SYSTEMS: A 10-point review of systems was conducted and the pertinent was as listed within the HPI, otherwise noncontributory. PHYSICAL EXAMINATION: Vital Signs: Temperature 98.4, blood pressure 129/59, pulse 82, respiratory rate 19, oxygen saturation 89% on nasal cannula at 5. General: Very developed, very nourished, in mild acute respiratory distress with audible wheezing. HEENT: Atraumatic. Trachea midline. Mucosa pink and slightly dry. Respiratory: Lung expansion equal bilaterally. Auscultation revealed diminished breathing sounds bilaterally with expiratory wheezing throughout the lung marrufo. He also had prolonged expiratory phase. Cardiovascular: Regular rate and rhythm. Gastrointestinal: Nontender, bowel sounds normoactive in all 4 quadrants. Soft and obese. Extremities: No pedal edema. No cyanosis. No clubbing. Neurologic: Alert and oriented x3. Speech fluent. Follows commands. LAB DATA: White blood cell 16.00, hemoglobin 10.9, hematocrit 35.5, platelets 382,000. Sodium 139, potassium 4.5, chloride 101, carbon dioxide 31, BUN 10, creatinine 0.8. Glucose 125. ASSESSMENT: This is a 72-year-old male with a medical history of airway penetration, chronic obstructive pulmonary disease, stroke, hypertension, paroxysmal atrial fibrillation and tobacco abuse. He has been admitted since 05/04/2018 with chronic obstructive pulmonary disease exacerbation and bibasilar pneumonia. CT on 05/08/2018 revealed foreign body in right bronchus. 1. Chronic obstructive pulmonary disease exacerbation. 2. Bibasilar pneumonia. 3. Foreign body in bronchus. 4. Ongoing tobacco abuse PLAN: 1. Continue supplemental oxygen as needed. 2. Continue antibiotics and bronchodilators. Will start sul-medrol for wheezing. 3. Planned bronchoscopy. Dr. Oates talked with patient about our plan, patient agreed with it and all questions were answered. 4. We are going to hold baby aspirin at this time. 5. Educate on the importance and the means of smoking cessation, but apparently patient is not interested at this time. 6. Continue GI and DVT prophylaxis. Thank you for the courtesy of this consult. Dictated by CHAIM Skelton for Clement Oates MD cc: CHAIM Skelton MD [facility]
[2018-05-10] MEDS: MAXIPIME 2 GM in NS 100 ML IV SCH ×2 (00:40→15:54)
[2018-05-10] MEDS: SOLU-MEDROL IV SCH ×4 (03:12→23:11)
[2018-05-10] MEDS: DUONEB (A & A) INH SCH ×6 (03:25→23:25)
[2018-05-10 07:54] LABS: BASO# 0.03 X1000 (0.0-0.2); BASO% 0.2 % (0.0-0.8); EOS# 0.05 X1000 (0.0-0.7); EOS% 0.3 % (0.0-10.0); HEMATOCRIT 37.2 % (42.0-52.0); HEMOGLOBIN 11.5 g/dL (14.0-18.0); IMM GRAN# 0.24 X1000 (0.0-0.04); IMM GRAN% 1.5 % (0.0-0.5); LYMPH# 0.85 X1000 (1.2-3.4); LYMPH% 5.4 % (20.5-51.1); MCH 29.5 PG (27-31); MCHC 30.9 g/dL (33-37); MCV 95.4 FL (81-99); MONO% 1.3 % (1.7-9.3); MPV 9.9 FL (7.4-10.4); NEUT# 14.23 X1000 (1.4-6.5); NEUT% 91.3 % (42.2-75.2); PLT 398 X1000 (130-400); RDW 14.4 % (11.5-14.5)
[2018-05-10] MEDS: SPIRIVA INH SCH (08:06)
[2018-05-10] MEDS: SYMBICORT 160/4.5 MICROGM INHALER INH SCH ×2 (08:06→20:37)
[2018-05-10 08:18] LABS: AGAP 9; BUN 11 mg/dL (8-22); CALCIUM 8.8 mg/dL (8.8-10.2); CHLORIDE 98 mmol/L (98-107); COSMO 277; CREATININE 0.7 mg/dL (0.7-1.2); ESTIMATED GFR > 60; GLUCOSE 165 mg/dL (70-104); POTASSIUM 4.8 mmol/L (3.5-5.1); SODIUM 137 mmol/L (136-145); TCO2 30 mmol/L (25-35)
[2018-05-10] MEDS: ZYVOX 600 MG/D5W 600 MG/300 ML IVPB IV SCH ×2 (10:28→23:10)
[2018-05-10] MEDS: ZOLOFT PO SCH (10:29)
[2018-05-10] MEDS: LOVENOX SUBQ SCH (10:29)
[2018-05-10] MEDS: SYSTANE EYE DROPS BOTH EYES SCH ×3 (10:29→16:05)
[2018-05-10] MEDS: OSCAL 500 + D PO SCH (10:29)
[2018-05-10] MEDS: TESSALON PO SCH ×3 (10:29→16:05)
[2018-05-10] MEDS: PLAVIX PO SCH (10:29)
[2018-05-10] MEDS: NORVASC PO SCH (10:29)
[2018-05-10] MEDS: LACTULOSE PO SCH ×2 (10:29→23:15)
[2018-05-10] MEDS: ZANTAC PO SCH ×2 (10:29→23:11)
[2018-05-10] MEDS: COLACE PO SCH ×2 (10:29→23:15)
[2018-05-10] MEDS: PATIENT'S OWN MED PO SCH (10:30)
[2018-05-10] MEDS: MIRALAX PO SCH ×2 (10:30→23:14)
--- NOTE | 2018-05-10 20:48 | Diag Imaging Result Doc PS360 ---
EXAM: CT HEAD W/O CONTRAST 05/10/2018 HISTORY: encephalopathy TECHNIQUE: This exam was performed using automated exposure control, adjustment of mA or kV according to patient size, and/or use of iterative reconstruction technique. COMMENT: There is mild cerebral and cerebellar atrophy. There is extensive encephalomalacia present in the left frontal and adjacent parietal lobes. There is patchy periventricular white matter lucency generally. No evidence of bleed mass effect or abnormal extra-axial fluid collection is present. There is a small lacune in the left basal ganglia. No previous studies available for comparison. IMPRESSION: Extensive chronic ischemic change. No evidence of acute disease. Electronically signed by Steve Cassidy 05/10/2018 8:46 PM
--- NOTE | 2018-05-10 20:57 | Diag Imaging Result Doc PS360 ---
EXAM: CHEST-1 VIEW 05/10/2018 HISTORY: pneumonia TECHNIQUE: AP chest at 2038 COMMENT: Compared to the previous study of 05/07/2018 the retrocardiac opacity in the left lower lobe and the opacity in the medial right base have improved. IMPRESSION: Improved bibasilar atelectasis. Electronically signed by Steve Cassidy 05/10/2018 8:55 PM
[2018-05-10] MEDS: DULCOLAX PR SCH (23:15)
[2018-05-11] MEDS: MAXIPIME 2 GM in NS 100 ML IV SCH ×2 (01:53→15:55)
[2018-05-11] MEDS: DUONEB (A & A) INH SCH ×6 (03:20→23:05)
--- NOTE | 2018-05-11 04:56 | PROGRESS NOTE ---
DATE: 05/10/2018 SUBJECTIVE: The patient was noted by the nursing staff to be aspirating with his meals. The patient is now n.p.o. He is scheduled to undergo a bronchoscopy tomorrow due to a foreign body found in his right bronchus. OBJECTIVE: Vital Signs: Temperature 97.9 degrees, blood pressure 140/62, heart rate 97, respirations 16, O2 saturation is 95% on 5 L nasal cannula. General: This is a chronically ill- appearing elderly male, lying in bed, in no acute distress. Heart: S1, S2 normal, tachycardic. Lungs: Coarse breath sounds bilaterally. Abdomen: Positive bowel sounds. Soft, nontender, nondistended. Extremities: No edema. No cyanosis. Neurologic: The patient is awake and alert. LABORATORY DATA: White blood cell count 15, hemoglobin 11, hematocrit 37, platelets 398,000. Sodium 137, potassium 4.8, BUN 11, creatinine 0.7 glucose 165. ASSESSMENT AND PLAN: 1. Suspected aspiration pneumonia. Continue with antibiotic therapy. The patient is now n.p.o. He is scheduled for a bronchoscopy tomorrow. The patient will likely need a modified barium swallow to be done prior to resuming a diet. 2. Foreign body in the right bronchus. The patient is scheduled to undergo a bronchoscopy tomorrow. 3. Coronary artery disease. Aware. The patient's Plavix is on hold due to the bronchoscopy planned for tomorrow. 4. Advanced chronic obstructive pulmonary disease (COPD). Continue bronchodilator therapy and supplemental oxygen. 5. Hypertension. Stable. 6. Deep vein thrombosis (DVT) prophylaxis. Continue with SCDs. The Lovenox is on hold. cc: Ryann Jeffries MD [facility]
[2018-05-11] MEDS: SOLU-MEDROL IV SCH ×2 (06:06→13:53)
[2018-05-11] MEDS: SPIRIVA INH SCH (07:39)
[2018-05-11] MEDS: SYMBICORT 160/4.5 MICROGM INHALER INH SCH ×2 (07:39→20:04)
[2018-05-11 08:10] LABS: BASO# 0.01 X1000 (0.0-0.2); BASO% 0.1 % (0.0-0.8); HEMATOCRIT 35.9 % (42.0-52.0); HEMOGLOBIN 11.4 g/dL (14.0-18.0); IMM GRAN# 0.13 X1000 (0.0-0.04); IMM GRAN% 0.8 % (0.0-0.5); LYMPH# 0.75 X1000 (1.2-3.4); LYMPH% 4.7 % (20.5-51.1); MCH 29.8 PG (27-31); MCHC 31.8 g/dL (33-37); MCV 93.7 FL (81-99); MONO% 3.8 % (1.7-9.3); MPV 10.2 FL (7.4-10.4); NEUT% 90.6 % (42.2-75.2); PLT 407 X1000 (130-400); RBC 3.83 XMIL (4.7-6.1); RDW 14.4 % (11.5-14.5); WBC 15.79 X1000 (4.8-10.8)
[2018-05-11 08:12] LABS: AGAP 11; BUN 15 mg/dL (8-22); CHLORIDE 98 mmol/L (98-107); COSMO 280; CREATININE 0.7 mg/dL (0.7-1.2); ESTIMATED GFR > 60; GLUCOSE 161 mg/dL (70-104); POTASSIUM 4.3 mmol/L (3.5-5.1); SODIUM 138 mmol/L (136-145); TCO2 29 mmol/L (25-35)
[2018-05-11 08:53] LABS: BANDS 6 % (0-1); LYMPHS 6 % (21-51); MONO 2 % (1-9); SEGS 86 % (42-75)
[2018-05-11] MEDS ORDERED: EPINEPHRINE ONE (10:22)
[2018-05-11] MEDS ORDERED: SODIUM CHLORIDE 0.9% 20 ML ONE (10:23)
[2018-05-11] MEDS ORDERED: XYLOCAINE 2% ONE (10:23)
[2018-05-11] MEDS ORDERED: XYLOCAINE 2% VISCOUS ONE (10:23)
[2018-05-11] MEDS: ZOLOFT PO SCH (10:24)
[2018-05-11] MEDS: COLACE PO SCH ×3 (10:24→22:16)
[2018-05-11] MEDS: TESSALON PO SCH ×4 (10:25→16:57)
[2018-05-11] MEDS: LACTULOSE PO SCH ×2 (10:25→21:55)
[2018-05-11] MEDS: ZANTAC PO SCH ×2 (10:25→21:55)
[2018-05-11] MEDS: MIRALAX PO SCH ×2 (10:26→21:55)
[2018-05-11] MEDS: NORVASC PO SCH (10:26)
[2018-05-11] MEDS: OSCAL 500 + D PO SCH (10:26)
[2018-05-11] MEDS: PATIENT'S OWN MED PO SCH (10:26)
[2018-05-11] MEDS: SYSTANE EYE DROPS BOTH EYES SCH ×3 (10:28→16:57)
[2018-05-11 11:01] LABS: INR 0.92; PROTIME 13.1 Seconds (11.0-16.0)
[2018-05-11 11:02] LABS: PTT 29.4 Seconds (22.3-41.8)
[2018-05-11] MEDS ORDERED: FENTANYL ONE (11:36)
[2018-05-11] MEDS ORDERED: ROBINUL ONE (11:36)
[2018-05-11] MEDS ORDERED: DIPRIVAN 1% 500 MG/50 ML BOTTLE ONE (11:42)
[2018-05-11] MEDS ORDERED: XYLOCAINE-MPF 2% ONE (11:43)
--- NOTE | 2018-05-11 13:33 | OPERATIVE NOTE ---
PROCEDURE DATE: 05/11/2018 REFERRING PHYSICIAN: Ryann Jeffries MD PROCEDURE: Bronchoscopy. INDICATION: CAT scan showing foreign body possibility in right bronchus history of consent obtained. DESCRIPTION OF PROCEDURE: Conscious sedation administered by Anesthesia Department. Fluoroscopy scanning used for sampling guidance. Local anesthesia lidocaine, right nostril approach. Normal vocal cord movements. All major segments visualized. In the right lower lobe, just after the truncus intermedius, there was a mucus membrane trabeculation matching the site in which a foreign body was seen so there is no foreign body seen on the bronchoscopy, but there is prominent mucous membrane trabeculated. That is likely explaining the findings on the CAT scan. So again all major segments on the right and the left visualized thoroughly. Washing taken for cultures and cytology. Thank you for the courtesy of this consultation. IMPRESSION: 1. Mucous membranes trabeculation. 2. Likely that explains the citation of foreign body on CT scan, but there is no foreign body on visualization in the bronchial trees. cc: Clement Oates MD
[2018-05-11] MEDS: ZYVOX 600 MG/D5W 600 MG/300 ML IVPB IV SCH ×2 (13:44→21:54)
--- NOTE | 2018-05-11 17:59 | PROGRESS NOTE ---
DATE: 05/11/2018 SUBJECTIVE: The patient is resting comfortably in bed. No acute events noted overnight. OBJECTIVE: Vital Signs: Temperature 98.6 degrees, blood pressure 155/71, heart rate 84, respirations 17, O2 saturation is 100% on 3 L nasal cannula. General: This is a chronically ill- appearing, elderly male lying in bed, in no acute distress. Heart: S1, S2 normal. Regular rate and rhythm. Lungs: Equal air entry bilaterally. No crackles. No rales. Abdomen: Positive bowel sounds. Soft, nontender, nondistended. Extremities: No edema. No cyanosis. Neurologic: The patient is alert and oriented x3. LABS: White blood cell count 15, hemoglobin 11, hematocrit 35, platelets 407,000. Sodium 138, potassium 4.3, chloride 98, CO2 29, BUN 15, creatinine 0.7, glucose 161. ASSESSMENT AND PLAN: 1. Aspiration pneumonia. Continue with antibiotic therapy. 2. Status post bronchoscopy. Aware. 3. Coronary artery disease. Aware. 4. Advanced chronic obstructive pulmonary disease. Continue with bronchodilator therapy and supplemental oxygen. 5. Hypertension. Stable. 6. Deep vein thrombosis prophylaxis. Continue on Lovenox. cc: Ryann Jeffries MD
[2018-05-11] MEDS: DULCOLAX PR SCH (21:55)
[2018-05-12] MEDS: MAXIPIME 2 GM in NS 100 ML IV SCH ×2 (00:56→14:54)
[2018-05-12] MEDS: SOLU-MEDROL IV SCH ×2 (02:12→14:35)
[2018-05-12] MEDS: DUONEB (A & A) INH SCH ×6 (03:32→22:55)
[2018-05-12] MEDS: SYMBICORT 160/4.5 MICROGM INHALER INH SCH ×2 (07:50→19:20)
[2018-05-12] MEDS: SPIRIVA INH SCH (07:51)
[2018-05-12 08:00] LABS: HEMATOCRIT 35.7 % (42.0-52.0); HEMOGLOBIN 11.3 g/dL (14.0-18.0); IMM GRAN# 0.12 X1000 (0.0-0.04); IMM GRAN% 0.7 % (0.0-0.5); LYMPH# 0.73 X1000 (1.2-3.4); LYMPH% 4.3 % (20.5-51.1); MCH 29.6 PG (27-31); MCHC 31.7 g/dL (33-37); MCV 93.5 FL (81-99); MONO# 0.88 X1000 (0.11-0.59); MONO% 5.2 % (1.7-9.3); NEUT# 15.22 X1000 (1.4-6.5); NEUT% 89.8 % (42.2-75.2); PLT 420 X1000 (130-400); RBC 3.82 XMIL (4.7-6.1); RDW 14.6 % (11.5-14.5); WBC 16.95 X1000 (4.8-10.8)
[2018-05-12 08:17] LABS: AGAP 10; BUN 22 mg/dL (8-22); CALCIUM 8.4 mg/dL (8.8-10.2); CHLORIDE 101 mmol/L (98-107); COSMO 284; CREATININE 0.6 mg/dL (0.7-1.2); ESTIMATED GFR > 60; GLUCOSE 160 mg/dL (70-104); POTASSIUM 4.1 mmol/L (3.5-5.1); SODIUM 139 mmol/L (136-145); TCO2 28 mmol/L (25-35)
[2018-05-12] MEDS: LACTULOSE PO SCH ×2 (09:15→23:32)
[2018-05-12] MEDS: MIRALAX PO SCH ×2 (09:15→23:31)
[2018-05-12] MEDS: PATIENT'S OWN MED PO SCH (09:16)
[2018-05-12] MEDS: ZANTAC PO SCH ×2 (09:16→23:32)
[2018-05-12] MEDS: TESSALON PO SCH ×3 (09:16→17:01)
[2018-05-12] MEDS: SYSTANE EYE DROPS BOTH EYES SCH ×3 (09:16→17:01)
[2018-05-12] MEDS: OSCAL 500 + D PO SCH (09:16)
[2018-05-12] MEDS: ZOLOFT PO SCH (09:16)
[2018-05-12] MEDS: NORVASC PO SCH (09:16)
[2018-05-12] MEDS: COLACE PO SCH ×2 (09:16→23:32)
[2018-05-12] MEDS: ZYVOX 600 MG/D5W 600 MG/300 ML IVPB IV SCH ×2 (12:16→23:25)
--- NOTE | 2018-05-12 14:54 | Diag Imaging Result Doc PS360 ---
EXAM: BA SWALLOW W/VIDEO SPEECH THER INDICATION: aspiration TECHNIQUE: COMPARISON: 03/28/2016 FINDINGS: Upon rapid successive thin liquid barium swallows, there was flash penetration of the contrast that did not extend past the vocal folds. No cory aspiration was identified with barium of thin liquid and pureed consistency. There is no evidence of cricopharyngeus hypertrophy. Limited views of the lower esophagus are essentially unremarkable. IMPRESSION: 1.Flash penetration with successive rapid thin liquid barium swallows but no aspiration is appreciated. 2.Please see speech pathology report for full details. Electronically signed by Jakob Brewer 05/12/2018 2:52 PM
--- NOTE | 2018-05-12 17:37 | PROGRESS NOTE ---
DATE: 05/12/2018 SUBJECTIVE: Patient resting comfortably. OBJECTIVE: Vital signs: Temperature 97.7 degrees, pulse 88, respiratory rate is 16, blood pressure is 153/68, oxygen saturation is 96%. HEENT: Atraumatic, normocephalic. Cardiovascular system: S1, S2. Respiratory system: Has evidence of good entry bilaterally. Abdomen: Soft, nontender. No masses felt. Extremities: No evidence of edema. Central nervous system: No obvious focal deficits noted. LABORATORY DATA: WBC 16.95, hematocrit is 35.97 with a platelet count of 420,000. Sodium is 139, potassium 4.1, chloride is 101, bicarbonate 28, BUN is [*] creatinine 0.6. ASSESSMENT AND PLAN: 1. Aspiration pneumonia. Continue antibiotics. 2. Coronary artery disease. Stable. 3. Chronic obstructive pulmonary disease (COPD). Maintain patient on supplement oxygen as well as bronchodilator therapy. 4. Hypertension. Optimize blood pressure control. 5. Deep vein thrombosis (DVT) prophylaxis. Lovenox. DISPOSITION: Consult with [employer] Machine Operator to assist with the discharge planning. cc: Roney Real MD
[2018-05-12] MEDS: DULCOLAX PR SCH (23:39)
[2018-05-13 01:20] LABS: BASO# 0.02 X1000 (0.0-0.2); BASO% 0.1 % (0.0-0.8); EOS# 0.06 X1000 (0.0-0.7); EOS% 0.3 % (0.0-10.0); HEMATOCRIT 37.8 % (42.0-52.0); IMM GRAN# 0.21 X1000 (0.0-0.04); LYMPH% 6.2 % (20.5-51.1); MCH 29.4 PG (27-31); MCHC 31.7 g/dL (33-37); MCV 92.6 FL (81-99); MONO# 2.31 X1000 (0.11-0.59); MPV 9.9 FL (7.4-10.4); NEUT# 17.19 X1000 (1.4-6.5); NEUT% 81.4 % (42.2-75.2); PLT 439 X1000 (130-400); RBC 4.08 XMIL (4.7-6.1); RDW 14.4 % (11.5-14.5); WBC 21.09 X1000 (4.8-10.8)
[2018-05-13 01:25] LABS: INR 0.91; PTT 28.6 Seconds (22.3-41.8)
[2018-05-13 01:44] LABS: AGAP 13; ALB/GLOB RATIO 1.7; ALBUMIN 4.3 g/dL (3.5-5.0); ALKALINE PHOSPHATASE 80 U/L (32-122); BUN 25 mg/dL (8-22); CALCIUM 9.3 mg/dL (8.8-10.2); CHLORIDE 97 mmol/L (98-107); CK PROFILE 76 U/L (24-204); COSMO 285; CREATININE 0.7 mg/dL (0.7-1.2); ESTIMATED GFR > 60; GLUCOSE 180 mg/dL (70-104); GOT 19 U/L (10-34); GPT 31 U/L (10-44); SODIUM 138 mmol/L (136-145); TCO2 28 mmol/L (25-35); TOTAL BILIRUBIN 0.18 mg/dL (0.20-1.00); TOTAL PROTEIN 6.8 g/dL (6.3-8.3)
[2018-05-13] MEDS: DUONEB (A & A) INH SCH ×4 (03:20→14:53)
[2018-05-13] MEDS: SOLU-MEDROL IV SCH (05:34)
[2018-05-13] MEDS: MAXIPIME 2 GM in NS 100 ML IV SCH ×2 (05:34→16:11)
[2018-05-13 07:03] LABS: URINE SOURCE CATH
[2018-05-13 07:09] LABS: BILIRUBIN URINE NEGATIVE (NEGATIVE); BLOOD URINE NEGATIVE (NEGATIVE); COLOR YELLOW; GLUCOSE URINE NEGATIVE (NEGATIVE); KETONE URINE NEGATIVE (NEGATIVE); LEUKOCYTES URINE NEGATIVE (NEGATIVE); NITRITE URINE NEGATIVE (NEGATIVE); PROTEIN URINE TRACE mg/dL (NEGATIVE); SP GRAVITY URINE 1.023; TURBIDITY URINE CLEAR (CLEAR); UR EPITHELIAL CELLS <10 /HPF (<10); URINE BACTERIA NEGATIVE /HPF; URINE RBC <10 /HPF (<10); URINE WBC <10 /HPF (<10); UROBILINOGEN URINE NORMAL (NORMAL)
[2018-05-13] MEDS: SYMBICORT 160/4.5 MICROGM INHALER INH SCH (07:55)
[2018-05-13] MEDS: SPIRIVA INH SCH (07:55)
--- NOTE | 2018-05-13 07:58 | Diag Imaging Result Doc PS360 ---
EXAM: CHEST-1 VIEW INDICATION: + sepsis screen TECHNIQUE: One view COMPARISON: 05/10/2018 FINDINGS: Lung volumes are low similar to the previous study. Opacities at the lung bases are again identified. They are somewhat linear and probably represent atelectasis. Otherwise, the lungs are grossly clear. There is no definite pleural fluid collection. Cardiac silhouette is stable. IMPRESSION: Bibasilar linear densities that probably represents atelectasis. Electronically signed by Jakob Brewer 05/13/2018 7:55 AM
[2018-05-13] MEDS: ZOLOFT PO SCH (09:28)
[2018-05-13] MEDS: LOVENOX SUBQ SCH (09:28)
[2018-05-13] MEDS: OSCAL 500 + D PO SCH (09:28)
[2018-05-13] MEDS: LACTULOSE PO SCH (09:28)
[2018-05-13] MEDS: ZANTAC PO SCH (09:28)
[2018-05-13] MEDS: TESSALON PO SCH ×3 (09:28→16:26)
[2018-05-13] MEDS: NORVASC PO SCH (09:28)
[2018-05-13] MEDS: COLACE PO SCH (09:28)
[2018-05-13] MEDS: MIRALAX PO SCH (09:28)
[2018-05-13] MEDS: SYSTANE EYE DROPS BOTH EYES SCH ×3 (09:29→16:27)
[2018-05-13] MEDS: PATIENT'S OWN MED PO SCH (09:29)
[2018-05-13] MEDS: PLAVIX PO SCH (09:31)
[2018-05-13] MEDS: ZYVOX 600 MG/D5W 600 MG/300 ML IVPB IV SCH (10:13)
[2018-05-13] MEDS ORDERED: MEDROL DOSEPAK PO SCH (11:30)
[2018-05-13] MEDS ORDERED: ZYVOX PO SCH (11:45)
[2018-05-13] MEDS ORDERED: AUGMENTIN PO SCH (11:45)
--- NOTE | 2018-05-13 12:04 | DISCHARGE SUMMARY ---
ADMISSION DATE: 05/04/2018 DISCHARGE DATE: 05/13/2018 PRINCIPAL DIAGNOSIS: Chronic obstructive pulmonary disease exacerbation. SECONDARY DIAGNOSES: 1. Aspiration pneumonia. 2. Hypertension. 3. Atrial fibrillation. 4. History of cerebrovascular accident. 5. B12 deficiency. 6. History of constipation. 7. History of coronary artery disease. 8. Tobacco use history. DISCHARGE MEDICATIONS: 1. Bisacodyl 10 mg p.o. at bedtime. 2. Benzonatate 100 mg p.o. 3 times a day. 3. Augmentin 875 mg p.o. twice a day for 5 days. 4. Levaquin 500 mg p.o. daily for 5 days. 5. Xanax 6 mg p.o. twice a day for 5 days. 6. Systane eye drops 1 drop 3 times a day as directed. 7. Ranitidine 150 mg p.o. twice a day. 8. Norvasc 5 mg p.o. once a day. 9. Aspirin 81 mg p.o. daily. 10. Symbicort 2 puffs twice a day. 11. Plavix 75 mg daily. 12. Sertraline 50 mg p.o. daily. 13. Spiriva inhaler 1 puff daily. 14. Calcium with vitamin D 1 daily. 15. DuoNeb every 4 hours. 16. Mucinex D twice a day. 17. Liquid protein [*] 30 mL daily. 18. Colace 100 mg p.o. twice a day. 19. Medrol Dosepak to be taken as directed. PROCEDURES DONE DURING THIS HOSPITAL STAY: 1. Chest CT 05/08/[address] 05/10/2018. 3. Modified barium swallow 05/11/2018. CONSULTATIONS DONE DURING THIS HOSPITAL STAY: Clement Oates MD . HOSPITAL COURSE: Mr. Arcadio Williamson is a 72-year-old male who is a resident of [facility] admitted on 05/04/2018. The patient presented to hospital because of cough, shortness of breath as well as weakness. He does have underlying COPD and is on oxygen at night. At the time of presentation he was diagnosed as having COPD exacerbation and was maintained on nebulized bronchodilators, along with steroids and also antibiotics. During the course of the hospital stay, the patient did have a chest CT and there was concern that he may have had a foreign body in the right bronchial tree. The patient subsequently had a bronchoscopy done, and it was a negative procedure. No such foreign body was noted on visualization of the bronchial tree. The patient has done well. He is stable. He can be discharged back to [facility]. DISCHARGE EXAMINATION: General: On examination today, he was found to be an elderly male resting comfortably. Not in any obvious distress. Vitals: Temperature 98.2 degrees, pulse 90, respiratory rate is 18, blood pressure is 147/61, oxygen 95%. HEENT: Atraumatic, normocephalic. Cardiovascular: S1, S2. Respiratory system: Has evidence of good air entry bilaterally. Abdomen: Soft, nontender. No masses felt. Extremities: Trace edema in the lower extremities. Central nervous system: No obvious focal deficit noted. LABORATORY DATA/IMAGING: WBC 21.09 probably secondary to the effect of steroids. Hematocrit 37.8 with a platelet count of 430,000. Sodium is 138, potassium 4, chloride is 97, bicarb is 28, BUN is 25, creatinine 0.7, glucose 180. X-ray of the chest shows bibasilar linear densities that probably represent atelectasis. Otherwise, the lungs are grossly clear. There is no definite pleural fluid collection. The cardiac silhouette is stable. ASSESSMENT AND PLAN: The patient can be discharged back today to [facility]. The patient's white count is elevated and we think that is because of steroids. The patient will need to have repeat CBC to ensure that the white count is trending downward. He will need PT OT evaluation and take his discharge medications as noted above. Continue his oxygen at night. He needs to follow up with his primary care physician outpatient, Stephan Wilde MD. He also needs to follow up with Dr. Oates, coil strapper, outpatient. cc: Roney Real MD
[2018-05-13] MEDS ORDERED: MEDROL PO ONE ×2 (13:00→17:00)
[2018-05-13 15:26] VITALS: BP 151/73
[2018-05-14] MEDS ORDERED: SOLU-MEDROL IV SCH (05:00)
[2018-05-14] MEDS ORDERED: MEDROL PO SCH ×3 (07:00→21:00)
[2018-05-14] MEDS ORDERED: LEVAQUIN PO SCH (09:00)
[2018-05-15] MEDS ORDERED: MEDROL PO SCH ×2 (07:00→16:00)
[2018-05-16] MEDS ORDERED: MEDROL PO SCH (08:00)
[2018-05-17] MEDS ORDERED: MEDROL PO SCH (07:00)
[2018-05-18] MEDS ORDERED: MEDROL PO SCH (07:00)
== END 2018-05-13 19:00 | DRG 178 ==
LOC: SUPCPDRO → ED 06:00 → 3N 08:59 → SUATTDRO 08:59
PROVIDERS: ATTEND Internal Medicine
CPT/HCPCS: 70450; 71010; 71045; 71250; 74230; 76000; 80048; 80053; 81001; 82550; 82607; 82746; 82784; 82805; 83605; 83735; 83880; 84100; 84145; 84439; 84484; 85025; 85610; 85730; 87015; 87040; 87070; 87102; 87116; 87147; 87205; 87206; 87275; 87276; 87804; 92610; 92611; 93005; 94640; 94761; 94799; 96365; 96367; 96375; 97162; 97530; 99285; A9270; J0171; J0692; J1650; J2020; J2405; J2543; J2920; J2930; J3010; J3370; J7030; J7040; J7509

== ENCOUNTER 2018-07-30 22:43 | Inpatient (IN) ==
[2018-07-30 23:20] LABS: BASO# 0.09 X1000 (0.0-0.2); BASO% 0.2 % (0.0-0.8); EOS# 0.01 X1000 (0.0-0.7); HEMATOCRIT 38.2 % (42.0-52.0); HEMOGLOBIN 12.5 g/dL (14.0-18.0); IMM GRAN# 0.25 X1000 (0.0-0.04); IMM GRAN% 0.6 % (0.0-0.5); LYMPH# 1.76 X1000 (1.2-3.4); LYMPH% 4.2 % (20.5-51.1); MCH 28.4 PG (27-31); MCHC 32.7 g/dL (33-37); MCV 86.8 FL (81-99); MONO# 3.23 X1000 (0.11-0.59); MONO% 7.7 % (1.7-9.3); MPV 10.1 FL (7.4-10.4); NEUT# 36.62 X1000 (1.4-6.5); NEUT% 87.3 % (42.2-75.2); PLT 400 X1000 (130-400); WBC 41.96 X1000 (4.8-10.8)
[2018-07-30 23:25] LABS: INR 0.96; PROTIME 13.5 Seconds (11.0-16.0)
[2018-07-30 23:26] LABS: PTT 29.3 Seconds (22.3-41.8)
[2018-07-30] MEDS ORDERED: DUONEB (A & A) INH ONE (23:28)
--- NOTE | 2018-07-30 23:29 | PROVIDER DOCUMENTATION ---
HPI-Respiratory General - General Chief Complaint: Shortness of Breath Stated Complaint: SOB Time Seen by Provider: 07/30/18 23:27 Allergies/Adverse Reactions: Patient Allergies Allergy/AdvReac Type Severity Reaction Status Date / Time No Known Allergies Allergy Verified 09/17/17 15:51 Home Medications: Home Medication List Medication Instructions Recorded Confirmed Last Taken Type Propylene Glycol/Peg Oph Soln 1 drop BOTH EYES TID 09/17/17 05/04/18 09/17/17 History [Systane Eye Drops] Ranitidine [Zantac] 150 mg PO BID 09/17/17 05/04/18 09/17/17 History Amlodipine Besylate 5 mg PO QAM 02/11/18 05/04/18 Unknown History Aspirin 81 mg PO QAM 02/11/18 05/04/18 Unknown History Budesonide/Formoterol Fumarate 2 puff INH BID 02/11/18 05/04/18 Unknown History [Symbicort 160-4.5 Mcg Inhaler] Calcium Carbonate/Vitamin D3 1 each PO QAM 02/11/18 05/04/18 Unknown History [Oyster Shell 500-Vit D3 200 Tb] Clopidogrel [Plavix] 75 mg PO QAM 02/11/18 05/04/18 Unknown History Sertraline HCl 50 mg PO QAM 02/11/18 05/04/18 Unknown History Tiotropium [place] Inhaler 1 puff INH QAM 02/11/18 05/04/18 Unknown History [Spiriva] Albuterol 2.5MG/Ipratrop 0.5MG 3 ml INH RTQ4H neb 02/17/18 05/04/18 Unknown Rx [Duoneb (A & A)] Docusate Sodium 100 mg PO BID 05/04/18 05/04/18 Unknown History Guaifenesin/Pseudoephedrne HCl 1 each PO BID 05/04/18 05/04/18 Unknown History [Mucinex D ER Tablet] Protein Hydrolysate,Milk [Liquid 30 ml PO QAM 05/04/18 05/04/18 Unknown History Protein Fortifier] Amoxicillin/Pot Clavulanate 875 mg PO Q12HR tab 05/13/18 Unknown Rx [Augmentin] Benzonatate [Tessalon] 100 mg PO TID cap 05/13/18 Unknown Rx Bisacodyl [Dulcolax] 10 mg NV QHS supp 05/13/18 Unknown Rx Levofloxacin [Levaquin] 500 mg PO DAILY tab 05/13/18 Unknown Rx Linezolid [Zyvox] 600 mg PO Q12HR tab 05/13/18 Unknown Rx - History of Present Illness-Resp Nature of Presenting Problem: 72 YOM PRESENTS FROM SNF FOR SOB. DENIES FEVER, CHILLS, N/V/D Quality of Pain: reports: none Severity in ED: reports: moderate Onset/Duration: reports: unsure Timing: reports: still present Cough Quality/Degree: reports: moderate Current Respiratory Medication Therapy: Initiated none Modifying Factors: improves with: nothing Associated Symptoms: reports: cough, shortness of breath Similar Symptoms Previously?: No Recently seen or treated by another doctor?: No Review of Systems - Adult - REVIEW OF SYSTEMS - ADULT Constitutional: reports: no symptoms reported. denies: see HPI, chills, fever, fatique, night sweats, weight gain, weight loss, other Eyes: reports: no symptoms reported. denies: see HPI, discharge, dry eyes, decreased vision, blurred vision, double vision, eye pain, redness, other Ears, Nose, Mouth & Throat: reports: no symptoms reported. denies: see HPI, ear discharge, ear pain, hearing loss, tinnitus, epistaxis, sinus problem, nose pain, loose teeth, mouth/dental pain, mouth swelling, hoarseness, throat pain, throat swelling, other Cardiovascular: reports: no symptoms reported. denies: see HPI, chest pain, edema, heart murmur, irregular heart rate, orthopnea, palpitations, poor circulation, PND, syncope, other Respiratory: reports: cough, shortness of breath, wheezing. denies: no symptoms reported, see HPI, chronic cough, dyspnea on exertion, excessive sputum production, hemoptysis, pleurisy, other Gastrointestinal: reports: no symptoms reported. denies: see HPI, abdominal pain, hematemesis, constipation, diarrhea, difficulty swallowing, frequent heartburn, nausea, poor appetite, rectal bleeding, vomiting, other Genitourinary: reports: no symptoms reported. denies: see HPI, dysuria, discharge, frequency, flank pain, frequent UTI's, hematuria, hesitency, incontinence, urinary retention, urgency, other Musculoskeletal: reports: no symptoms reported. denies: see HPI, bone pain, back pain, frequent leg cramps, joint pain, joint swelling, muscle aches, muscle weakness, neck pain, other Integumentary: reports: no symptoms reported. denies: see HPI, hives, hair loss, itching, mole changes, nail changes, rash, skin sores/ulcer, skin thicke rojas, other Neurological: reports: no symptoms reported. denies: see HPI, ataxia, dizziness/vertigo, headache/migraines, loss of balance, numbness, paresthesia, seizure, slurred speech, syncope, tremors, other Psychiatric: reports: no symptoms reported. denies: see HPI, anxiety, anti- depressant use, alcohol/drug dependence, depression, emotional problems, insomnia, panic attacks, suicidal thoughts, other Endocrine: reports: no symptoms reported. denies: see HPI, change in skin pigment, excessive sweating, goiter, cold intolerance, heat intolerance, increased hunger, increased thirst, polyuria, other Hematologic/Lymphatic: reports: no symptoms reported. denies: see HPI, blood clots, easy bruising, low blood count, lymphedema, prolonged bleeding, swollen lymph nodes, transfusions, other Allergic/Immunologic: reports: no symptoms reported. denies: see HPI, allergic reactions, allergic rhinitis, asthma, eczema, food allergy, frequent infections, hay fever, hives, positive PPD, urticaria, other Past History - Adult - PAST MEDICAL HISTORY-ADULT Review of Records: reports: Nursing Assessment Review, Social history reviewed & non-contributory. Major Childhood Illnesses: reports: denies history Cardiovascular: reports: CHF Respiratory: reports: COPD, other (home oxygen) Gastrointestinal: reports: denies history Obstetrical/Gynecological: reports: denies history Genitourinary: reports: denies history Musculoskeletal: reports: denies history Neurological: reports: denies history Endocrine/Immune: reports: denies history Other Conditions: reports: denies history - IMMUNIZATION STATUS Childhood Immunizations: See Nurse Assessment Flu Vaccine: See Nurse Assessment - FAMILY HISTORY Family History: reviewed, not pertinent Physical Exam-General - PHYSICAL EXAM-ADULT Initial Vital Signs Reviewed: Yes - CONSTITUTIONAL General Appearance: appears well, alert, no apparent distress - EYES Eyes: PERRL/EOMI - HEAD, EARS, NOSE, MOUTH & THROAT HENMT: normocephalic/atraumatic, moist mucous membranes, normal ENT inspection - NECK Neck: non-tender, full range of motion, supple - RESPIRATORY Respiratory: chest non-tender, crackles, wheezing - CARDIOVASCULAR Cardiovascular: normal peripheral pulses, regular rate, rhythm, no edema, no gallop, no JVD, no murmur - GASTROINTESTINAL (ABDOMEN) Abdominal Exam: normal bowel sounds, non tender, soft - LYMPHATIC Lymphatic: no adenopathy - MUSCULOSKELETAL Back Exam: normal inspection, no CVA tenderness, no vertebral tenderness Extremity: normal range of motion, non-tender - SKIN Integumentary: normal color, normal turgor, warm/dry - NEUROLOGIC Neurologic: grossly normal - PSYCHIATRIC Psych/Mental Status: normal mood/affect, oriented x 3 Progress - PLAN OF CARE/RESULTS Progress/Plan/Lab Results: Vital Signs - 8 hr 07/30/18 22:48 Temperature 98.9 F Pulse Rate 99 H Respiratory Rate 18 Blood Pressure 149/79 O2 Sat by Pulse Oximetry 97 Laboratory Results - last 24 hr 07/30/18 07/30/18 07/30/18 23:01 23:01 23:01 WBC 41.96 H RBC 4.40 L Hgb 12.5 L Hct 38.2 L MCV 86.8 MCH 28.4 MCHC 32.7 L RDW Std Deviation 16.0 H Plt Count 400 MPV 10.1 Immature Gran % (Auto) 0.6 H Neut % (Auto) 87.3 H Lymph % (Auto) 4.2 L [place] % (Auto) 7.7 Eos % (Auto) 0.0 Baso % (Auto) 0.2 Immature Gran # (Auto) 0.25 H Neut # (Auto) 36.62 H Lymph # (Auto) 1.76 [place]vier # (Auto) 3.23 H Eos # (Auto) 0.01 Baso # (Auto) 0.09 Segmented Neutrophils 93 H Band Neutrophils 3 H Lymphocytes 1 L Monocytes 3 Pathologist Review PT INR PTT (Actin FS) Sodium 138 Potassium 5.0 Chloride 97 L Carbon Dioxide 27 Anion Gap 14 BUN 21 Creatinine 1.0 Estimated GFR/1.73 m2 > 60 BUN/Creatinine Ratio 21 Glucose 148 H Calculated Osmolality 281 Calcium 9.7 Total Bilirubin 0.45 AST 18 ALT 18 Alkaline Phosphatase 117 Creatine Kinase 110 Troponin T Zvs-S-Dmibipdufsk Pept 247 H Total Protein 7.1 Albumin 4.3 Globulin 2.8 Albumin/Globulin Ratio 1.5 Plasma Lactate 07/30/18 07/30/18 07/30/18 23:01 23:01 23:50 WBC RBC Hgb Hct MCV MCH MCHC RDW Std Deviation Plt Count MPV Immature Gran % (Auto) Neut % (Auto) Lymph % (Auto) Sevier % (Auto) Eos % (Auto) Baso % (Auto) Immature Gran # (Auto) Neut # (Auto) Lymph # (Auto) Sevier # (Auto) Eos # (Auto) Baso # (Auto) Segmented Neutrophils Band Neutrophils Lymphocytes Monocytes Pathologist Review PT 13.5 INR 0.96 PTT (Actin FS) 29.3 Sodium Potassium Chloride Carbon Dioxide Anion Gap BUN Creatinine Estimated GFR/1.73 m2 BUN/Creatinine Ratio Glucose Calculated Osmolality Calcium Total Bilirubin AST ALT Alkaline Phosphatase Creatine Kinase Troponin T < 0.010 Mvj-[id number]-Zuvhzscsptw Pept Total Protein Albumin Globulin Albumin/Globulin Ratio Plasma Lactate 0.7 Orders Category Date Time Status Cardiac Monitoring DIRECTED Care 07/30/18 23:08 Active Oxygen Therapy- ED Nursing DIRECTED Care 07/30/18 23:08 Active Saline Loc NOW Care 07/30/18 23:08 Active CHEST-1 VIEW [RAD] Stat Exams 07/30/18 23:08 Taken BC [BLOOD CULTURE] [BLDCUL] Stat Lab 07/31/18 00:07 Results CBC WITH ELECTRONIC DIFF [HEME] Stat Lab 07/30/18 23:01 Completed CK PROFILE [SP CHEM] Stat Lab 07/30/18 23:01 Completed COMPREHENSIVE METABOLIC PANEL [CHEM] Stat Lab 07/30/18 23:01 Completed LACTATE, PLASMA [CHEM] Stat Lab 07/31/18 00:12 Completed PRO B-NATRIURETIC PEPTIDE Stat Lab 07/30/18 23:01 Completed PROTIME WITH INR [COAG] Stat Lab 07/30/18 23:01 Completed PTT [COAG] Stat Lab 07/30/18 23:01 Completed TROPONIN T Stat Lab 07/30/18 23:01 Completed Albuterol 2.5MG/Ipratrop 0.5MG [Duoneb (A & A)] Med 07/30/18 23:28 Disconti nued 3 ml INH NOW ONE Piperacillin/Tazobactam [Zosyn] 4.5 gm Med 07/31/18 00:53 Active 0.9% Sodium Chloride Inj [Ns] 100 ml IV NOW Vancomycin 1 gm/Ns Med 07/31/18 00:53 Active 1 gm in 250 ml IV NOW Aerosol Treatments Routine Oth 07/30/18 23:28 Active Aerosol Treatments Stat Oth 07/30/18 23:28 Active CP/SOB/Palp >45 yrs of Age Stat Oth 07/30/18 23:07 Ordered EKG [EKG] Stat Ther 07/30/18 23:08 Ordered Result Diagrams: 07/30/18 23:01 07/30/18 23:01 - EKG 1 Time of EKG reading by physician:: 00:55 EKG Read and Signed by:: Rose Novoa EKG Interpretation (*Must complete 3 of following elements*): Normal Rate: 87 Rhythm: NSR [place]: left QRS: RBB NV Interval: normal ST Wave: non-specific ST changes - XRAY 1 XRAY Study: Chest Impression: Abnormal (RLL PNA) Departure - Departure Date of Disposition Decision: 07/31/18 Time of Disposition Decision: 01:07 DIAGNOSIS: HCAP (healthcare-associated pneumonia) Disposition: ADMITTED INPATIENT 09 Certified Medical Emergency: Emergent Condition: Stable Referrals and Follow-Ups: Stephan Wilde MD [Primary Care Provider] - - Critical Care Note This patient required my direct & personal management of CC.: No Attestation - Physician/ LA Attestation Patient care was provided by Advanced Practice Provider:: Yes Advanced Practice Provider:: Lesley Hyatt Advanced Practice Provider documentation review:: The Mid-level provider documentation, treatment plan and medical decision making was reviewed by the physician who agrees with all treatment and medical decision making by the MLP. The physician spent face to face time with patient:: No Advanced Practice Provider documentation review:: Supervising physician onsite and consulted in the evaluation and care of this patient. The physician did not have a face to face encounter with the patient.
[2018-07-30 23:44] LABS: AGAP 14; ALB/GLOB RATIO 1.5; ALBUMIN 4.3 g/dL (3.5-5.0); ALKALINE PHOSPHATASE 117 U/L (32-122); BUN 21 mg/dL (8-22); CALCIUM 9.7 mg/dL (8.8-10.2); CHLORIDE 97 mmol/L (98-107); CK PROFILE 110 U/L (24-204); COSMO 281; ESTIMATED GFR > 60; GLUCOSE 148 mg/dL (70-104); GOT 18 U/L (10-34); GPT 18 U/L (10-44); SODIUM 138 mmol/L (136-145); TCO2 27 mmol/L (25-35); TOTAL BILIRUBIN 0.45 mg/dL (0.20-1.00); TOTAL PROTEIN 7.1 g/dL (6.3-8.3)
[2018-07-30 23:46] LABS: BANDS 3 % (0-1); LYMPHS 1 % (21-51); MONO 3 % (1-9); SEGS 93 % (42-75)
[2018-07-31] MEDS ORDERED: VANCOMYCIN 1 GM/NS 1 GM/250 ML IVPB IV ONE (00:53)
[2018-07-31] MEDS ORDERED: ZOSYN 4.5 GM in NS 100 ML IV ONE (00:53)
[2018-07-31] MEDS ORDERED: DUONEB (A & A) INH ONE (05:20)
[2018-07-31 05:25] LABS: URINE SOURCE CATH
[2018-07-31 05:37] LABS: BILIRUBIN URINE NEGATIVE (NEGATIVE); BLOOD URINE NEGATIVE (NEGATIVE); COLOR YELLOW; GLUCOSE URINE NEGATIVE (NEGATIVE); KETONE URINE NEGATIVE (NEGATIVE); LEUKOCYTES URINE NEGATIVE (NEGATIVE); NITRITE URINE NEGATIVE (NEGATIVE); PROTEIN URINE TRACE mg/dL (NEGATIVE); SP GRAVITY URINE 1.021; TURBIDITY URINE CLEAR (CLEAR); UR EPITHELIAL CELLS <10 /HPF (<10); URINE BACTERIA NEGATIVE /HPF; URINE RBC <10 /HPF (<10); URINE WBC <10 /HPF (<10); UROBILINOGEN URINE NORMAL (NORMAL)
--- NOTE | 2018-07-31 06:51 | EKG Report ---
Test Performed on : 07/31/2018 00:49:57 AM Test Reason : SOB Blood Pressure : / mmHG Vent. Rate : 087 BPM Atrial Rate : 087 BPM P-R Int : 190 ms QRS Dur : 124 ms QT Int : 368 ms P-R-T Axes : 051 -45 018 degrees QTc Int : 442 ms Normal sinus rhythm. Left axis deviation Right bundle branch block Inferior infarct , age undetermined Abnormal ECG When compared with ECG of 04-MAY-2018 07:44, Inferior infarct is now present QT has shortened Unconfirmed Result
--- NOTE | 2018-07-31 07:09 | Diag Imaging Result Doc PS360 ---
EXAM: CHEST-1 VIEW HISTORY: SOB TECHNIQUE: Chest single view COMPARISON: 05/13/2018 FINDINGS: Poor inspiratory effort. There are mild increased interstitial markings. No pleural effusions identified. The heart is borderline mildly prominent. IMPRESSION: Pulmonary edema Electronically signed by Yusuf Love 07/31/2018 7:07 AM
[2018-07-31] MEDS ORDERED: ZOFRAN IV PRN (07:34)
[2018-07-31] MEDS ORDERED: TESSALON PO PRN (07:34)
[2018-07-31] MEDS ORDERED: VANCOMYCIN IV PER PHARMACY MISC SCH (07:34)
[2018-07-31] MEDS ORDERED: TYLENOL PO PRN (07:34)
[2018-07-31] MEDS: DUONEB (A & A) INH SCH ×5 (10:30→23:10)
[2018-07-31 10:42] LABS: BASO# 0.06 X1000 (0.0-0.2); BASO% 0.2 % (0.0-0.8); EOS# 0.04 X1000 (0.0-0.7); EOS% 0.1 % (0.0-10.0); HEMOGLOBIN 12.2 g/dL (14.0-18.0); IMM GRAN# 0.12 X1000 (0.0-0.04); IMM GRAN% 0.4 % (0.0-0.5); LYMPH# 2.06 X1000 (1.2-3.4); LYMPH% 7.2 % (20.5-51.1); MCHC 32.1 g/dL (33-37); MCV 87.2 FL (81-99); MONO# 2.09 X1000 (0.11-0.59); MONO% 7.3 % (1.7-9.3); MPV 10.2 FL (7.4-10.4); NEUT# 24.33 X1000 (1.4-6.5); NEUT% 84.8 % (42.2-75.2); PLT 407 X1000 (130-400); RBC 4.36 XMIL (4.7-6.1); RDW 16.3 % (11.5-14.5)
[2018-07-31 11:10] LABS: AGAP 14; BUN 21 mg/dL (8-22); CALCIUM 8.9 mg/dL (8.8-10.2); CHLORIDE 99 mmol/L (98-107); COSMO 283; CREATININE 0.9 mg/dL (0.7-1.2); ESTIMATED GFR > 60; GLUCOSE 140 mg/dL (70-104); SODIUM 139 mmol/L (136-145); TCO2 26 mmol/L (25-35)
[2018-07-31 11:28] LABS: BANDS 6 % (0-1); LYMPHS 6 % (21-51); MONO 4 % (1-9); SEGS 84 % (42-75)
[2018-07-31] MEDS: ZOSYN 3.375 GM in NS 50 ML IV SCH ×2 (12:13→21:27)
[2018-07-31] MEDS: OSCAL 500 + D PO SCH (12:14)
[2018-07-31] MEDS: NORVASC PO SCH (12:14)
[2018-07-31] MEDS: ZOLOFT PO SCH (12:14)
[2018-07-31] MEDS: ASPIRIN PO SCH (12:14)
[2018-07-31] MEDS: MUCINEX PO SCH ×2 (12:15→21:27)
[2018-07-31] MEDS: PLAVIX PO SCH (12:15)
[2018-07-31] MEDS: ZANTAC PO SCH ×2 (12:15→21:27)
[2018-07-31] MEDS: COLACE PO SCH ×2 (12:15→21:28)
[2018-07-31] MEDS: SYSTANE EYE DROPS BOTH EYES SCH ×3 (13:16→17:47)
[2018-07-31 15:34] LABS: FLOW CYTOMETERY SOURCE WHOLE BLOOD; LEUKEMIA LYMPHOMA BY FLOW REFERRED FOR TESTING
--- NOTE | 2018-07-31 16:51 | PROGRESS NOTE ---
DATE: 07/31/2018 SUBJECTIVE: This morning today, Mr. Williamson refers to be doing a little better. He is not coughing any more. The daughter and the son-in-law were at the bedside at the time of the encounter. Mr. Williamson is a resident of [facility], was brought in yesterday because of cough, wheezing, and vomiting. According to the daughter, she saw the father yesterday during the day and he seems to have been doing okay. She got a phone call last night that the father was having difficulty breathing so he was brought into the emergency department. On presentation, he was saturating about 97%. His vitals seemed to be doing okay. However, his white cell count was up to about 41,960, so he was admitted for further medical care. Today he refers to be doing okay, has not had any more vomiting. OBJECTIVE: Vital Signs: His current vital signs are blood pressure 150/83, pulse of 89 respiration is 18, temperature is 98.9 degrees. General: Mr. Williamson is a 72-year-old gentleman. He is in bed, no distress. HEENT: Mucosa is pink and moist. Anicteric. Acyanotic. Neck: Supple. Chest: Air entry was bilaterally reduced. There is a few wheezing bilateral, no crackles. Cardiovascular: Regular rate and rhythm. No murmurs, no rubs, no gallops. Abdomen: Minimally distended, but nontender. Bowel sounds are present. Extremities: No pedal edema. Neurologic: The patient is awake, alert, and follows basic commands. He seems to have some hearing impairment. LABORATORY DATA: WBC is down to 428.7, hemoglobin is 12.2, platelet count of 407,000. The patient has 84% of neutrophils. Chemistry is also reviewed, is completely normal. CURRENT MEDICATIONS: Have all been reviewed. Antimicrobials include vancomycin and Zosyn. ASSESSMENT: 1. Acute onset of shortness of breath. Chest x-ray is unremarkable. The patient does have some mild wheezing. Unsure if he was in bronchitis or it was a chronic obstructive pulmonary disease exacerbation. He is getting nebulization and he is getting antibiotics. Cultures have also been done and we are going to be waiting on the report. For now, will continue with the IV antibiotics until culture reports available. 2. Chronic leukocytosis. The patient has elevated white cell count for most part. Unsure why, but when he came it was about double. Concern is if he has any underlying myeloproliferative disorder, so we will do a flow cytometry. It seems to be coming down so it would suggest that it might be some reactive elevation in the white cell count or michele de-marginalization We will do a flow cytometry to rule out any myeloproliferative disorder. 3. History of chronic obstructive pulmonary disease with mild exacerbation. We will continue with treatment. 4. History of seasonal allergies. The patient has been started on Zyrtec. We will also do sinus x-rays to rule out any signs of ongoing sinusitis as a result of his elevated white cell count. cc: Harjinder Castillo MD MTDD
[2018-07-31] MEDS: VANCOMYCIN 2 GM in NS 500 ML IV SCH (17:47)
[2018-08-01] MEDS: ZOSYN 3.375 GM in NS 50 ML IV SCH ×4 (01:00→18:16)
[2018-08-01] MEDS: DUONEB (A & A) INH SCH ×6 (03:20→21:15)
--- NOTE | 2018-08-01 05:39 | HISTORY AND PHYSICAL ---
ATTENDING PHYSICIAN: Roney Real MD. PRIMARY CARE PROVIDER: Dr. Edwina Rousseau, the patient is a resident at [facility]. CHIEF COMPLAINT: Shortness of breath. HISTORY OF PRESENT ILLNESS: Mr. Williamson is a 72-year-old, male who is a resident at [facility]. He has a past medical history most notable for COPD, hypertension, paroxysmal atrial fibrillation as well as a CVA approximately 5 years ago, which initially he was noted to have right-sided partial paresis, though now he only has some right-sided weakness. The patient was recently admitted to our facility in May 2018, he was here for COPD exacerbation as well as aspiration pneumonia. The patient reports that for a few days now he has had shortness of breath and cough. He reports that his shortness of breath did become worse today. The patient states that he wears oxygen as needed at the half-way as well as at night, though he states that over the last day or so that he has been having to wear this more frequently. He also reports he has been complaining of some lower abdominal pain. Upon further evaluation, this is in the suprapubic area. When I asked the patient the last time he had urinated, he states that he was unsure. We did try to get him a urinal in the ER and he was unable to urinate. We did do a in-and-out catheter in the ER and did drain a reported 450 mL of urine from the patient's bladder. The patient states since emptying his bladder that his abdominal pain had greatly improved and almost resolved. He had reported a little bit of nausea, denies any vomiting. He denies any diarrhea, though does have some problems with occasional constipation. He denies any chest pain, fever, body aches, or chills. He also denies any pain or burning with urination. Upon evaluation in the ER, he was noted to have x-ray which showed a possible right lower lobe pneumonia. The patient does have crackles noted in bilateral bases as well as rhonchi and wheezing noted throughout bilateral full lung marrufo. He does have a markedly elevated white blood cell count of 41,960, though looking back at previous visits, his white blood cell count has been elevated since January 2018, though it has doubled since his most recent white blood cell count in May 2018. Given his recent history of admission as well as COPD, history of aspiration pneumonia, as well as he is a resident at a [facility], we will go ahead and cover him for possibility of healthcare-associated pneumonia. We have implemented blood culture, sputum culture, and antibiotic coverage with vancomycin and Zosyn. He will be placed inpatient for admission. REVIEW OF SYSTEMS: A 14-point review of systems was conducted with the patient and all were negative, except for pertinent positives mentioned above HPI. PAST MEDICAL HISTORY: 1. CVA 5 years ago for which he did have some right-sided partial paresis, though now has some residual weakness. The patient reports that he is nonambulatory and does use a wheelchair. 2. Hypertension. 3. COPD requiring 2 L nasal cannula at night and p.r.n. as needed. 4. History of paroxysmal atrial fibrillation. Though, at this time, does not appear the patient is on anything for rate control. PAST SURGICAL HISTORY: The patient does have note in his history from the half-way that he has had bilateral cataract surgery, though other than this, upon his report, he has not had any other previous surgeries. SOCIAL HISTORY: The patient is a former smoker. He reports he quit smoking approximately 9 months to a year ago. He is a resident at [facility]. He has no known alcohol or illicit drug use. FAMILY HISTORY: Positive for hypertension. ALLERGIES: Patient has no known allergies. HOME MEDICATIONS: 1. DuoNeb treatments 3 mL inhaled q.4 hours. 2. Norvasc 5 mg p.o. q.a.m. 3. Aspirin 81 mg p.o. q.a.m. 4. Tessalon Perles 100 mg p.o. t.i.d. 5. Symbicort 160-4.5 mcg inhaler, 2 puffs inhaled b.i.d. 6. Calcium carbonate/vitamin D3 tablet, 1 p.o. q.a.m. 7. Plavix 75 mg p.o. q.a.m. 8. Vitamin B12, 500 mg tablet p.o. as directed. 9. Docusate sodium 100 mg p.o. b.i.d. 10. Robitussin DM liquid 10 mL p.o. q.4 hours p.r.n. cough. 11. Levaquin 500 mg p.o. daily. 12. Depo-Medrol 40 mg IM daily. 13. Systane eye drops, 1 drop in bilateral eyes t.i.d. 14. Zantac 100 mg p.o. b.i.d. 15. Sertraline 50 mg p.o. q.a.m. 16. Spiriva 1 puff inhaled q.a.m. DIAGNOSTIC DATA: White blood cell count is 41,960, hemoglobin 12.5 hematocrit 38.2, platelet count is 400,000. PT 13.5, INR 0.96, PTT is 29.3. Sodium 138, potassium 5, chloride 97, serum bicarb is 27, BUN 21, creatinine 1. GFR greater than 60, glucose 148, calcium 9.7. Liver function tests within normal limits. CK 110, troponin less than 0.01. ProBNP is 247. Plasma lactate 0.7. Urinalysis was obtained via catheter, was positive for trace protein, though was negative for glucose, ketones, blood, nitrites, leukocytes, white blood cells, or bacteria. EKG showed a normal sinus rhythm, right bundle branch block at a rate of 87 with a QTc of 442. Chest x-ray shows a possible right lower lobe pneumonia. We are waiting official radiology over read. PHYSICAL EXAMINATION: VITAL SIGNS: Temperature 98.9 degrees, heart rate 83, respirations 20, blood pressure is 135/81, oxygen saturation is 96% on nasal cannula at 2 L. GENERAL: Mr. Williamson is a pleasant 72-year-old, male who was resting in the ER stretcher. He was alert, oriented to person, place, time, and situation. He was able to answer questions appropriately. HEENT: Head is atraumatic, normocephalic. Pupils equal, round, reactive to light. Oral mucosa is moist. Oropharynx is clear. NECK: Supple. Trachea midline. CARDIOVASCULAR: Patient has S1, S2 present. No murmurs, gallops, rubs appreciated, with a regular rate and rhythm. PULMONARY: Patient has symmetrical chest expansion bilaterally, though does have crackles noted in bilateral bases and does have rhonchi and wheezing noted throughout bilateral full lung marrufo. ABDOMEN: Soft. Does not appear to be distended, though he does have a protuberant abdomen noted. The patient did report some tenderness in his suprapubic area. No rebound tenderness noted. Bowel sounds are present in all 4 quadrants, normoactive. EXTREMITIES: No cyanosis or edema noted. Pulse, motor, and sensory is intact in all extremities. Radial pulses and pedal pulses are 2+ bilaterally. INTEGUMENTARY: The patient's skin is pink, warm, and dry. NEUROLOGICAL: Patient is alert and oriented to person, place, time, and situation. His is a able to move all extremities, though does have some residual right-sided weakness from a previous stroke. Other than this, the patient does not appear to have any focal neurological deficits noted. ASSESSMENT AND PLAN: 1. Possible right lower lobe pneumonia. The patient does have a history of COPD, was admitted in May and did have aspiration pneumonia. He does look like at the half-way he has recently been placed on antibiotic of Levaquin as well as Depo-Medrol injections daily. His white blood cell count is markedly elevated at 41,960. This could be related to his steroid injections that he has been receiving, though given his symptoms and that he has recently been treated for pneumonia, we will go ahead and cover him for healthcare-associated pneumonia. We have placed him with antibiotic coverage of vancomycin and Zosyn. Blood cultures and sputum culture have been obtained. We will also continue with aggressive pulmonary toilet, scheduled DuoNeb treatments. We will continue with aspiration precautions. Frequent turn, cough, and deep breathing. We will add on some guaifenesin as well. Continue his supplemental oxygen. We will continue to follow his respiratory status closely. 2. Leukocytosis. Will continue treatment as mentioned above for #1. 3. Chronic obstructive pulmonary disease. We will continue treatment as mentioned above for #1, we will continue his supplemental oxygen. 4. Hypertension. We will continue with his regularly prescribed antihypertensive medications. 5. History of cerebrovascular accident. We will continue his aspirin and Plavix. 6. Lower abdominal pain. Though this may have been possibly secondary to possible urinary retention, the patient was complaining of some pain and tenderness in the suprapubic area. We did perform an in-and-out catheter due to the patient not being able to urinate. He did have approximately 450 mL of urine in his bladder. Since voiding, the patient reports that his abdominal pain did improve. We will continue to monitor this for any further complications of possible urinary retention. 7. History of paroxysmal atrial fibrillation. At this time, the patient is in sinus rhythm. He is rate controlled in the 80s. It does not appear that he takes anything for heart rate control at this time. We will continue to monitor this. He will be on continuous cardiac telemetry. The patient was placed on the medical floor with telemetry. He will have vital signs q.4 hours. We will do strict intake and output. We will repeat a CBC and BMP in the morning. Further orders and recommendations pending hospital course, diagnostic studies, and physician evaluation. Dictated by CHAIM Srinivasan for Roney Real MD cc: Roney Real MD
[2018-08-01 07:13] LABS: BASO# 0.08 X1000 (0.0-0.2); BASO% 0.5 % (0.0-0.8); EOS# 0.45 X1000 (0.0-0.7); EOS% 2.7 % (0.0-10.0); HEMATOCRIT 33.3 % (42.0-52.0); HEMOGLOBIN 10.5 g/dL (14.0-18.0); IMM GRAN# 0.11 X1000 (0.0-0.04); IMM GRAN% 0.7 % (0.0-0.5); LYMPH# 2.17 X1000 (1.2-3.4); LYMPH% 13.2 % (20.5-51.1); MCH 27.9 PG (27-31); MCHC 31.5 g/dL (33-37); MCV 88.3 FL (81-99); MONO# 2.03 X1000 (0.11-0.59); MONO% 12.4 % (1.7-9.3); MPV 10.2 FL (7.4-10.4); NEUT# 11.54 X1000 (1.4-6.5); NEUT% 70.5 % (42.2-75.2); PLT 346 X1000 (130-400); RBC 3.77 XMIL (4.7-6.1); RDW 16.1 % (11.5-14.5); WBC 16.38 X1000 (4.8-10.8)
[2018-08-01 07:42] LABS: AGAP 13; ALBUMIN 3.4 g/dL (3.5-5.0); ALKALINE PHOSPHATASE 102 U/L (32-122); BUN 17 mg/dL (8-22); CALCIUM 8.6 mg/dL (8.8-10.2); CHLORIDE 101 mmol/L (98-107); COSMO 281; CREATININE 0.8 mg/dL (0.7-1.2); ESTIMATED GFR > 60; GLUCOSE 100 mg/dL (70-104); GOT 14 U/L (10-34); GPT 14 U/L (10-44); POTASSIUM 3.8 mmol/L (3.5-5.1); SODIUM 140 mmol/L (136-145); TCO2 26 mmol/L (25-35); TOTAL BILIRUBIN 0.26 mg/dL (0.20-1.00); TOTAL PROTEIN 6.7 g/dL (6.3-8.3)
[2018-08-01] MEDS: ASPIRIN PO SCH (08:58)
[2018-08-01] MEDS: NORVASC PO SCH (08:59)
[2018-08-01] MEDS: PLAVIX PO SCH (08:59)
[2018-08-01] MEDS: COLACE PO SCH ×2 (08:59→20:32)
[2018-08-01] MEDS: OSCAL 500 + D PO SCH (08:59)
[2018-08-01] MEDS: MUCINEX PO SCH ×2 (08:59→20:32)
[2018-08-01] MEDS: ZOLOFT PO SCH (09:00)
[2018-08-01] MEDS: ZYRTEC PO SCH (09:00)
[2018-08-01] MEDS: ZANTAC PO SCH ×2 (09:00→20:32)
[2018-08-01] MEDS: SYSTANE EYE DROPS BOTH EYES SCH ×3 (09:00→17:39)
[2018-08-01] MEDS: VANCOMYCIN 2 GM in NS 500 ML IV SCH (15:36)
--- NOTE | 2018-08-01 19:25 | PROGRESS NOTE ---
DATE: 08/01/2018 SUBJECTIVE: This morning Mr. Williamson refers to be doing a whole lot better. Coughing is significantly improved. No shortness of breath and no fever. OBJECTIVE: His blood pressure is 121/55, pulse of 67, respirations 20, temperature 98.6 degrees. On general exam, Mr. Williamson is a 72-year-old gentleman. He was in bed. He does not seem to be in any cardiopulmonary distress. Mucosa is pink and moist. Anicteric. Acyanotic. Neck is supple. Chest: Good air entry bilateral. There was a few distant wheezing, but no crackles.Cardiovascular: Regular rate and rhythm. Abdomen is soft, nontender. Bowel sounds present. Extremities: No pedal edema. CAN OPERATOR: The patient was sleeping but easily arousable. LABORATORY DATA: WBC 16.38, hemoglobin is 10.5, platelet count of 346,000. Chemistry is also reviewed, is completely normal. ASSESSMENT: 1. Acute dyspnea secondary to bronchitis, improving. 2. Chronic obstructive pulmonary disease with mild exacerbation. 3. History of seasonal allergies. 4. Chronic leukocytosis with acute flare, most likely secondary to the ongoing infection. White cell count is trending down. 5. History of atrial fibrillation, currently rate controlled. 6. Resident of snf. 7. Hypertension, controlled. PLAN: In general I feel Mr. Williamson seems to be doing a lot better. No fever. Breathing well, saturating about 95% on just 2 L of nasal cannula. A chest x-ray yesterday did show mild pulmonary edema. We are going to repeat this later on Friday. I think Mr. Williamson will be ready for discharge in about a day or 2. cc: Harjinder Castillo MD
[2018-08-02] MEDS: ZOSYN 3.375 GM in NS 50 ML IV SCH ×4 (00:07→21:30)
[2018-08-02] MEDS: DUONEB (A & A) INH SCH ×6 (02:47→23:20)
[2018-08-02 07:27] LABS: BASO# 0.11 X1000 (0.0-0.2); BASO% 0.7 % (0.0-0.8); EOS# 0.89 X1000 (0.0-0.7); EOS% 5.4 % (0.0-10.0); HEMATOCRIT 34.8 % (42.0-52.0); HEMOGLOBIN 11.1 g/dL (14.0-18.0); IMM GRAN# 0.15 X1000 (0.0-0.04); IMM GRAN% 0.9 % (0.0-0.5); LYMPH# 2.69 X1000 (1.2-3.4); LYMPH% 16.3 % (20.5-51.1); MCH 28.5 PG (27-31); MCHC 31.9 g/dL (33-37); MCV 89.5 FL (81-99); MONO# 2.44 X1000 (0.11-0.59); MONO% 14.8 % (1.7-9.3); MPV 10.7 FL (7.4-10.4); NEUT# 10.24 X1000 (1.4-6.5); NEUT% 61.9 % (42.2-75.2); PLT 375 X1000 (130-400); RBC 3.89 XMIL (4.7-6.1); RDW 16.2 % (11.5-14.5); WBC 16.52 X1000 (4.8-10.8)
[2018-08-02 07:48] LABS: AGAP 13; ALBUMIN 3.4 g/dL (3.5-5.0); BUN 15 mg/dL (8-22); CALCIUM 8.3 mg/dL (8.8-10.2); CHLORIDE 101 mmol/L (98-107); COSMO 273; CREATININE 0.9 mg/dL (0.7-1.2); GLUCOSE 96 mg/dL (70-104); PHOSPHORUS 2.9 mg/dL (2.7-4.5); POTASSIUM 4.2 mmol/L (3.5-5.1); SODIUM 136 mmol/L (136-145); TCO2 22 mmol/L (25-35)
[2018-08-02] MEDS: PLAVIX PO SCH (08:40)
[2018-08-02] MEDS: ASPIRIN PO SCH (08:40)
[2018-08-02] MEDS: ZANTAC PO SCH ×2 (08:40→21:30)
[2018-08-02] MEDS: NORVASC PO SCH (08:40)
[2018-08-02] MEDS: MUCINEX PO SCH ×2 (08:40→21:30)
[2018-08-02] MEDS: OSCAL 500 + D PO SCH (08:41)
[2018-08-02] MEDS: ZOLOFT PO SCH (08:41)
[2018-08-02] MEDS: SYSTANE EYE DROPS BOTH EYES SCH ×3 (08:41→18:25)
[2018-08-02] MEDS: ZYRTEC PO SCH (08:41)
[2018-08-02] MEDS: COLACE PO SCH ×2 (08:41→21:30)
--- NOTE | 2018-08-02 11:43 | PROGRESS NOTE ---
DATE: 08/02/2018 SUBJECTIVE: This morning, Mr. Williamson refers to be doing a whole lot better. Denies any new complaints. No fever. OBJECTIVE: Vital signs: Blood pressure is 133/59, pulse of 67, respirations 18, temperature 98 degrees. General: Mr. Williamson is a 72-year-old gentleman. He is in bed. No distress. HEENT: Mucosa is pink and moist. Anicteric, acyanotic. Neck: Supple. Chest: Good air entry bilateral. Just some distant wheezing, but no crackles and no rhonchi. Cardiovascular: Regular rate and rhythm. No murmurs. Abdomen: Soft, nontender. Bowel sounds present. Extremities: No pedal edema. 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 LABORATORY DATA: Reviewed. WBC is down to 16.52, hemoglobin is 11.1, platelet count of 375,000. Chemistry completely normal. No imaging for this morning. ASSESSMENT: 1. Chronic obstructive pulmonary disease with mild exacerbation on presentation, improved. 2. History of seasonal allergies, stable. 3. Chronic leukocytosis with acute flare, most likely secondary to ongoing infection. White cell count is trending down. 4. History of atrial fibrillation, currently rate controlled. 5. Hypertension, controlled. 6. Resident of a [facility]. PLAN: So this morning, Mr. Williamson is doing a lot better. Breathing significantly improved. White cell count is going down. We plan to discharge him early tomorrow morning if he continues to be stable. cc: Harjinder Castillo MD
[2018-08-02] MEDS: VANCOMYCIN 2 GM in NS 500 ML IV SCH (14:54)
[2018-08-03] MEDS: ZOSYN 3.375 GM in NS 50 ML IV SCH ×2 (02:21→08:46)
[2018-08-03] MEDS: DUONEB (A & A) INH SCH ×3 (03:20→11:27)
[2018-08-03 06:37] LABS: BASO# 0.16 X1000 (0.0-0.2); BASO% 1.3 % (0.0-0.8); EOS# 0.86 X1000 (0.0-0.7); EOS% 7.1 % (0.0-10.0); HEMATOCRIT 34.5 % (42.0-52.0); IMM GRAN# 0.13 X1000 (0.0-0.04); IMM GRAN% 1.1 % (0.0-0.5); LYMPH# 2.31 X1000 (1.2-3.4); LYMPH% 19.1 % (20.5-51.1); MCH 28.3 PG (27-31); MCHC 31.9 g/dL (33-37); MCV 88.7 FL (81-99); MONO# 1.44 X1000 (0.11-0.59); MONO% 11.9 % (1.7-9.3); MPV 10.1 FL (7.4-10.4); NEUT# 7.21 X1000 (1.4-6.5); NEUT% 59.5 % (42.2-75.2); PLT 384 X1000 (130-400); RBC 3.89 XMIL (4.7-6.1); RDW 16.1 % (11.5-14.5); WBC 12.11 X1000 (4.8-10.8)
[2018-08-03 07:09] LABS: AGAP 8; ALBUMIN 3.9 g/dL (3.5-5.0); BUN 13 mg/dL (8-22); CALCIUM 8.8 mg/dL (8.8-10.2); CHLORIDE 103 mmol/L (98-107); COSMO 279; CREATININE 0.9 mg/dL (0.7-1.2); ESTIMATED GFR > 60; GLUCOSE 97 mg/dL (70-104); PHOSPHORUS 3.3 mg/dL (2.7-4.5); SODIUM 140 mmol/L (136-145); TCO2 29 mmol/L (25-35)
[2018-08-03] MEDS: ASPIRIN PO SCH (08:46)
[2018-08-03] MEDS: COLACE PO SCH (08:46)
[2018-08-03] MEDS: PLAVIX PO SCH (08:46)
[2018-08-03] MEDS: ZYRTEC PO SCH (08:46)
[2018-08-03] MEDS: MUCINEX PO SCH (08:46)
[2018-08-03] MEDS: ZANTAC PO SCH (08:46)
[2018-08-03] MEDS: ZOLOFT PO SCH (08:46)
[2018-08-03] MEDS: NORVASC PO SCH (08:46)
[2018-08-03] MEDS: OSCAL 500 + D PO SCH (08:47)
[2018-08-03] MEDS: SYSTANE EYE DROPS BOTH EYES SCH (08:47)
[2018-08-03 11:15] VITALS: BP 142/57
--- NOTE | 2018-08-03 11:27 | DISCHARGE SUMMARY ---
ADMISSION DATE: 07/31/2018 DISCHARGE DATE: 08/03/2018 DISPOSITION: Long-term [facility]. FOLLOW-UP: Stephan Wilde MD. CONSULTATION DURING THIS ADMISSION: None. INVASIVE PROCEDURES DONE DURING ADMISSION: None. IMAGING STUDIES OF SIGNIFICANCE: A chest x-ray revealed pulmonary edema. ADMISSION DIAGNOSES: 1. Possible right lower lobe pneumonia. 2. Leukocytosis. 3. Chronic obstructive pulmonary disease. 4. History of cerebrovascular accident. DIAGNOSIS AT THE TIME OF DISCHARGE: 1. Chronic obstructive pulmonary disease, in mild exacerbation on presentation. 2. History of seasonal allergies. 3. Chronic leukocytosis, which got worse with acute ongoing infection, improved. 4. History of atrial fibrillation, currently rate controlled. 5. Hypertension. 6. History of cerebrovascular accident. 7. Mild dementia. DISCHARGE MEDICATIONS: 1. Ranitidine 150 b.i.d. 2. Amlodipine 5 mg p.o. q.a.m. 3. Aspirin 81 mg daily. 4. Symbicort. 5. Clopidogrel 75 mg p.o. daily. 6. Sertraline 50 mg p.o. q.a.m. 7. Spiriva 1 puff q.a.m. 8. Colace 100 mg b.i.d. 9. Cyanocobalamin. 10. Prednisone 20 mg p.o. daily for 5 days. 11. Amoxiclav 1 tablets 875 p.o. b.i.d. 12. Doxycycline 100 mg b.i.d. ADMISSION COMPLAINT: Shortness of breath. HISTORY OF PRESENTING COMPLAINT: Mr. Williamson is a 72-year-old gentleman who has a history of COPD, hypertension, came to the emergency department from [facility] because of ongoing shortness of breath. Upon presenting to the emergency department, patient was evaluated and at some point, saturation went down to about 93%. A chest x-ray did show some pulmonary edema and his white cell count was about 41.96. He was subsequently admitted for further medical care. HOSPITAL COURSE: Mr. Williamson was admitted to the medical floor. He was started on IV antibiotics, he was thought to be in COPD exacerbation and was treated on standard therapy. He did improve during the hospital course. I was able to talk to the family members on admission. Throughout the hospital course, Mr. Williamson shortness of breath got better. He was down to about 4 L of nasal cannula, which is what he normally takes and he was saturating about 98%. His repeat subsequent WBC continues to decline. This morning it is down to 12.11. Rest of CBC is unremarkable and his chemistry is completely normal. PHYSICAL EXAMINATION: Vitals: His blood pressure is 134/56, pulse of 62, respiration is 16, temperature 97.8 degrees, the patient is saturating at 98%. DISCUSSION: So we think Mr. Williamson improved and responded very well to standard therapy. He is going to be [facility] to the [facility]. He is going to continue with the oral antibiotics to complete a total of 7 days. He is also going to be on steroids for a 5-day course, and he will follow up with his primary care doctor. All the discharge instructions have been discussed with him and he voiced understanding. TIME SPENT FOR DISCHARGE: 36 minutes. cc: MD Stephan Morrow MD
== END 2018-08-03 13:57 | DRG 191 ==
LOC: SUPCPDRO → ED 22:43 → 4N 07-31 07:06 → SUATTDRO 07-31 07:06
PROVIDERS: ATTEND Internal Medicine
CPT/HCPCS: 51701; 71010; 71045; 80048; 80053; 80069; 81001; 82232; 82550; 83605; 83615; 83880; 84484; 85025; 85610; 85730; 87040; 88184; 88185; 93005; 94640; 94761; 94799; 96365; 96367; 99285; A9270; J2543; J3370; J7040; P9612

== ENCOUNTER 2019-04-04 12:46 | Inpatient (IN) ==
[2019-04-04] MEDS ORDERED: DUONEB (A & A) INH ONE ×2 (13:16→16:44)
[2019-04-04] MEDS ORDERED: SODIUM CHLORIDE IV ONE (14:12)
--- NOTE | 2019-04-04 14:30 | Diag Imaging Result Doc PS360 ---
EXAM: CHEST-1 VIEW INDICATION: cough TECHNIQUE: One view COMPARISON: 07/30/2018 FINDINGS: There is a right basilar airspace consolidation suggesting pneumonia. There is also likely a component of atelectasis. The left lung appears to be clear. There is no discrete pleural fluid collection or pneumothorax. Cardiac silhouette is unremarkable. IMPRESSION: Right basilar consolidation as described. Electronically signed by Jakob Brewer 04/04/2019 2:28 PM
[2019-04-04 14:34] LABS: INR 1.02; PROTIME 13.5 Seconds (11.0-16.0)
[2019-04-04 14:50] LABS: AGAP 12; ALB/GLOB RATIO 1.3; ALKALINE PHOSPHATASE 138 U/L (32-122); BUN 11 mg/dL (8-22); CALCIUM 9.9 mg/dL (8.8-10.2); CHLORIDE 99 mmol/L (98-107); COSMO 279; CREATININE 0.8 mg/dL (0.7-1.2); ESTIMATED GFR > 60; GLUCOSE 131 mg/dL (70-104); GOT 16 U/L (10-34); GPT 15 U/L (10-44); POTASSIUM 4.6 mmol/L (3.5-5.1); SODIUM 139 mmol/L (136-145); TCO2 28 mmol/L (25-35); TOTAL PROTEIN 7.1 g/dL (6.3-8.3)
[2019-04-04 14:52] LABS: BASO# 0.07 X1000 (0.0-0.2); BASO% 0.2 % (0.0-0.8); EOS# 0.22 X1000 (0.0-0.7); EOS% 0.7 % (0.0-10.0); HEMATOCRIT 39.3 % (42.0-52.0); HEMOGLOBIN 12.4 g/dL (14.0-18.0); IMM GRAN# 0.16 X1000 (0.0-0.04); IMM GRAN% 0.5 % (0.0-0.5); LYMPH# 1.49 X1000 (1.2-3.4); LYMPH% 4.4 % (20.5-51.1); MCH 28.4 PG (27-31); MCHC 31.6 g/dL (33-37); MCV 90.1 FL (81-99); MONO# 3.57 X1000 (0.11-0.59); MONO% 10.6 % (1.7-9.3); MPV 10.4 FL (7.4-10.4); NEUT# 28.08 X1000 (1.4-6.5); NEUT% 83.6 % (42.2-75.2); PLT 400 X1000 (130-400); RBC 4.36 XMIL (4.7-6.1); RDW 16.1 % (11.5-14.5); WBC 33.59 X1000 (4.8-10.8)
[2019-04-04] MEDS ORDERED: LEVAQUIN 750 MG/D5W 750 MG/150 ML IVPB IV ONE (15:03)
[2019-04-04] MEDS ORDERED: ZOSYN 4.5 GM in NS 100 ML IV ONE (15:03)
[2019-04-04] MEDS ORDERED: VANCOMYCIN 1 GM/NS 1 GM/250 ML IVPB IV ONE (15:03)
[2019-04-04 15:20] LABS: ANISOCYTOSIS 1+; BANDS 3 % (0-1); LARGE PLATELETS 1+; LYMPHS 14 % (21-51); MONO 1 % (1-9); SEGS 82 % (42-75)
--- NOTE | 2019-04-04 16:22 | PROVIDER DOCUMENTATION ---
This chart was entered by Joseph Dietz Scribe, acting as scribe for Jordan Peng MD. HPI-General Adult - General Chief Complaint: Shortness of Breath Stated Complaint: SOB Time Seen by Provider: 04/04/19 13:08 Source: patient Allergies/Adverse Reactions: Patient Allergies Allergy/AdvReac Type Severity Reaction Status Date / Time apixaban Allergy Unknown Verified 04/04/19 16:16 Home Medications: Home Medication List Medication Instructions Recorded Confirmed Last Taken Type RX: Propylene Glycol/Peg Oph Soln 1 drop BOTH EYES TID 09/17/17 07/31/18 09/17/17 History [Systane Eye Drops] RX: Ranitidine [Zantac] 150 mg PO BID 09/17/17 07/31/18 09/17/17 History RX: Amlodipine Besylate 5 mg PO QAM 02/11/18 07/31/18 Unknown History RX: Aspirin 81 mg PO QAM 02/11/18 07/31/18 Unknown History RX: Budesonide/Formoterol Fumarate 2 puff INH BID 02/11/18 07/31/18 Unknown History [Symbicort 160-4.5 Mcg Inhaler] RX: Calcium Carbonate/Vitamin D3 1 each PO QAM 02/11/18 07/31/18 Unknown History [Oyster Shell 500-Vit D3 200 Tb] RX: Clopidogrel [Plavix] 75 mg PO QAM 02/11/18 07/31/18 Unknown History RX: Sertraline HCl 50 mg PO QAM 02/11/18 07/31/18 Unknown History RX: Tiotropium [place] Inhaler 1 puff INH QAM 02/11/18 07/31/18 Unknown History [Spiriva] RX: Albuterol 2.5MG/Ipratrop 0.5MG 3 ml INH RTQ4H neb 02/17/18 07/31/18 Unknown Rx [Duoneb (A & A)] RX: Docusate Sodium 100 mg PO BID 05/04/18 07/31/18 Unknown History RX: Benzonatate [Tessalon] 100 mg PO TID cap 05/13/18 07/31/18 Unknown Rx RX: Cyanocobalamin [Vitamin B-12] 1 tab PO DIRECTED 07/31/18 07/31/18 Unknown History RX: Guaifenesin/Dextromethorphan 10 ml PO Q4H PRN 07/31/18 07/31/18 Unknown History [Robitussin Cough-Chest Dm Liq] Amoxicillin/Potassium Clav 1 ea PO BID #10 tab 08/03/18 Unknown Rx [Augmentin 875-125 Tablet] RX: Doxycycline 100 mg PO BID #10 tab 08/03/18 Unknown Rx RX: Prednisone [Deltasone] 20 mg PO DAILY #5 tab 08/03/18 Unknown Rx Ondansetron Odt [Zofran 4 mg Odt] 4 mg PO Q6H PRN PRN #15 tab 09/28/18 Unknown Rx - History of Present Illness -Gen Adult Nature of Presenting Problems: 73 yom presents to the ed from half-way [facility] w/ c/o SOB, and difficulty breathing. ems reports recently discharged for COPD. ems reports crackles and wheezing was given neb treatment after wheezing has subsided. ems states recent fever of 99.9. ems reports sats was 89. 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 Location of Pain/Injury: reports: none Pain Radiation: reports: no radiation Quality of Pain: reports: none Severity: reports: mild Onset/Duration: reports: this morning Timing: reports: still present Context/Activities at Onset: reports: none Modifying Factors: improves with: nothing Associated Symptoms: reports: cough, shortness of breath. denies: fever/chills, nausea, weakness Similar Symptoms Previously?: No Recently seen or treated by another doctor?: Yes (recently discharged for COPD) Review of Systems - Adult - REVIEW OF SYSTEMS - ADULT Constitutional: reports: see HPI, fever. denies: chills Respiratory: reports: see HPI, cough, shortness of breath, wheezing Past History - Adult - PAST MEDICAL HISTORY-ADULT Review of Records: reports: Old Records Reviewed, Nursing Assessment Review, Medications Reviewed, Social history reviewed & non-contributory. Major Childhood Illnesses: reports: denies history Cardiovascular: reports: CHF, HTN Respiratory: reports: COPD, other (home oxygen) Gastrointestinal: reports: denies history Obstetrical/Gynecological: reports: denies history Genitourinary: reports: denies history Musculoskeletal: reports: denies history Neurological: reports: CVA (x3) Psychiatric: reports: denies history Endocrine/Immune: reports: denies history Other Conditions: reports: other cancer (skin melanoma), other (thyroid disease) - PRIOR SURGERIES/PROCEDURES Surgical/Procedure History: reports: reviewed, not pertinent - IMMUNIZATION STATUS Childhood Immunizations: See Nurse Assessment Flu Vaccine: See Nurse Assessment - FAMILY HISTORY Family History: reviewed, not pertinent - SOCIAL HISTORY Smoking: quit greater than 1 year Substance Use: denies Living Situation: care facility Physical Exam-General - PHYSICAL EXAM-ADULT Initial Vital Signs Reviewed: Yes - CONSTITUTIONAL General Appearance: appears well, alert, mild distress - RESPIRATORY Respiratory: crackles (bilaterlally), rhonchi (bilaterlally) - GENITOURINARY Male Genitalia: deferred Rectal Exam: deferred Hemoccult Exam: deferred - SKIN Integumentary: normal color - PSYCHIATRIC Psych/Mental Status: normal mood/affect, normal thought content, normal thought process, oriented x 3 Progress - PLAN OF CARE/RESULTS Progress/Plan/Lab Results: Vital Signs - 8 hr 04/04/19 12:49 Temperature 99.4 F Pulse Rate 97 H Respiratory Rate 26 H Blood Pressure 132/61 O2 Sat by Pulse Oximetry 92 L Result Diagrams: 04/04/19 14:01 04/04/19 14:01 - REASSESSMENT Reassessment #1 Time Reassessed: 14:11 (pos for sepsis ) Reassessment #2 Status: unchanged (patient with recent copd admision returns with similar symptoms SERs pos, spoke to hospitalist will admit with pnemonia sepsis protocal) - EKG 1 Time of EKG reading by physician:: 15:08 EKG Read and Signed by:: Jordan Peng EKG Interpretation (*Must complete 3 of following elements*): Abnormal Rate: 85 Rhythm: NSR [place]: normal QRS: normal MS Interval: normal ST Wave: normal Comments: RT bundle branch block/LT anterior fascicular block Bifascicular block - XRAY 1 XRAY Study: Chest Impression: See EMR Report ( EXAM: CHEST-1 VIEW INDICATION: cough TECHNIQUE: One view COMPARISON: 07/30/2018 FINDINGS: There is a right basilar airspace consolidation suggesting pneumonia. There is also likely a component of atelectasis. The left lung appears to be clear. There is no discrete pleural fluid collection or pneumothorax. Cardiac silhouette is unremarkable. IMPRESS ION: Right basilar consolidation as described. Electronically signed by Jakob Brewer 04/04/2019 2:28 PM 04/04/19 1428 Interpreting Physician: Jakob Brewer MD Dictated Date/Time: 04/04/19 1427 cc: Jordan Peng MD; Edwina Rousseau MD) - CONSULTS/PCP/HOSPITALIST Notification #1 *Consult/PCP/Hospitalist*: consult w/ hospitalists Time Discussed: 15:52 Consult Disposition: Admit Departure - Departure Date of Disposition Decision: 04/04/19 Time of Disposition Decision: 15:00 DIAGNOSIS: Pneumonia, HCAP (healthcare-associated pneumonia), Sepsis without acute organ d ysfunction Disposition: [facility] 02 Certified Medical Emergency: Emergent Condition: Good Referrals and Follow-Ups: Edwina Rousseau MD [Primary Care Provider] - - Critical Care Note This patient required my direct & personal management of CC.: No Attestation - Physician/ LA Attestation Patient care was provided by Advanced Practice Provider:: No The physician spent face to face time with patient:: Yes Advanced Practice Provider documentation review:: Supervising physician onsite and consulted in the evaluation and care of this patient. The physician did have a face to face encounter with the patient. This chart was documented by the indicated scribe, (Joseph Dietz, Johan) and accurately reflects the services I performed and decisions made by me, Jordan Peng MD, as attested by the provider's signature.
[2019-04-04] MEDS ORDERED: NS 1,000 ML IV SCH (16:30)
[2019-04-04] MEDS ORDERED: VANCOMYCIN IV PER PHARMACY MISC SCH (16:30)
[2019-04-04] MEDS ORDERED: SOLU-MEDROL IV ONE (16:46)
[2019-04-04] MEDS ORDERED: LASIX IV ONE (16:49)
[2019-04-04] MEDS ORDERED: ROBITUSSIN-DM PO PRN (17:01)
[2019-04-04] MEDS ORDERED: DULCOLAX PR PRN (17:01)
[2019-04-04 17:12] LABS: ALLEN TEST YES; BE 2.9 mmoll (-3.0-3.0); BLOOD TYPE ARTERIAL; HCO3-(ACT) 27.1 mmoll (20.0-26.0); METHB 0.9 % (0.0-1.5); MODALITY CANNULA; PO2(98.6) 71 mmHg (60-100); SAMPLE BLOOD; SAO2 96.2 % (95.0-100.0); THB 12.2 g/dL (11.5-17.4); pH(98.6) 7.33 (7.35-7.45)
[2019-04-04 17:14] LABS: PCO2(98.6) 57 mmHg (35-45)
[2019-04-04 17:18] LABS: URINE SOURCE CATH
[2019-04-04 17:22] LABS: BILIRUBIN URINE NEGATIVE (NEGATIVE); BLOOD URINE NEGATIVE (NEGATIVE); COLOR YELLOW; GLUCOSE URINE NEGATIVE (NEGATIVE); KETONE URINE NEGATIVE (NEGATIVE); LEUKOCYTES URINE NEGATIVE (NEGATIVE); NITRITE URINE NEGATIVE (NEGATIVE); PH URINE 6.5; PROTEIN URINE TRACE mg/dL (NEGATIVE); TURBIDITY URINE CLEAR (CLEAR); UROBILINOGEN URINE NORMAL (NORMAL)
[2019-04-04 17:23] LABS: UR EPITHELIAL CELLS <10 /HPF (<10); URINE BACTERIA NEGATIVE /HPF; URINE RBC <10 /HPF (<10); URINE WBC <10 /HPF (<10)
--- NOTE | 2019-04-04 17:42 | Diag Imaging Result Doc PS360 ---
EXAM: CHEST-PORTABLE INDICATION: flash pulm edema TECHNIQUE: One view COMPARISON: 04/04/2019 FINDINGS: Right basilar airspace consolidation is unchanged. No new consolidation is identified. Cardiac silhouette is stable. IMPRESSION: Stable chest. Electronically signed by Jakob Brewer 04/04/2019 5:40 PM
--- NOTE | 2019-04-04 18:11 | HISTORY AND PHYSICAL ---
PRIMARY CARE PROVIDER: Dr. Edwina Rousseau at [facility]. CHIEF COMPLAINT: Shortness of breath. HISTORY OF PRESENT ILLNESS: Mr. Arcadio Williamson is a 73-year-old male with a medical history of COPD, hypertension, paroxysmal atrial fibrillation, stroke around 5 years ago, who is here with complaints of shortness of breath. He claims he has been coughing up some cream-colored phlegm, but during the assessment he became very tachypneic with very high work of breathing. He had about a 1.5 L of fluids and what appears to be a pulmonary flash edema. So, he received a stat nebulizer, BiPAP, got an ABG, steroids and Lasix, chest x-ray pulmonary consult. When he presented when the symptoms, they obtained a chest x-ray around 1 o'clock today, which showed some right basilar consolidation consistent with pneumonia and a white count of 33,000. However, his lactate was normal. He was little tachycardic. We are going to move him to [facility] for further treatment and evaluation. He will be started on some antibiotics. PAST MEDICAL HISTORY: 1. 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 He is nonambulatory, uses a wheelchair. 2. Hypertension. 3. COPD. Usually 2 L of oxygen at night and p.r.n. 4. History of paroxysmal atrial fibrillation. SURGICAL HISTORY: Bilateral cataracts. SOCIAL HISTORY: He is a former smoker, quit smoking about a year ago. Resident at [facility]. No alcohol. No illicit drugs. FAMILY HISTORY: Hypertension. ALLERGIES: Apixaban. HOME MEDICATIONS: 1. Bisacodyl 10 mg per rectum nightly p.r.n. 2. Amlodipine besylate 10 mg p.o. daily. 3. Aspirin 81 mg p.o. daily. 4. Docusate sodium 100 mg p.o. twice daily. 5. MiraLAX 17 g p.o. daily. 6. Calcium vitamin D3 1 tablet p.o. daily. 7. Plavix 75 mg p.o. daily. 8. Protonix 40 mg p.o. daily. 9. Robitussin 10 mL p.o. every 4 hours p.r.n. 10. Sertraline 50 mg p.o. daily. 11. Spiriva 1 puff inhaled daily. 12. Symbicort 160/4.5 two puffs inhaled twice daily. 13. Systane eye drops both eyes t.i.d. 14. Multivitamin 1 daily. 15. Vitamin B12 on Mondays 500 mcg. 16. Zantac 150 mg p.o. twice daily. 17. Albuterol/Atrovent nebs every 4 hours. 18. Tessalon 100 mg p.o. twice t.i.d. 19. Zofran 4 mg p.o. every 6 hours p.r.n. REVIEW OF SYSTEMS: Difficult to obtain. When first questioning him, he was very short of breath, but it was very difficult to get information out of him. Once he was on BiPAP for a little while, he was able to answer some questions more appropriately, but essentially would only say that he just he has felt bad for a while. PHYSICAL EXAMINATION: VITAL SIGNS: Temperature is 100 degrees, heart rate 102, respiratory rate 30, blood pressure 154/73, O2 saturation 100% on BiPAP. GENERAL: Mr. Arcadio Williamson is a 73-year-old male. He was in acute distress when I presented to the room for assessment. He urgently required BiPAP among other interventions noted in the HPI. HEENT: Atraumatic, normocephalic. Pupils are equal, reactive. He has got a lot of eye drainage with some matting noted. Mucous membranes are moist. NECK: Trachea midline. CARDIOVASCULAR: S1-S2. Regular rate and rhythm. No rubs, gallops, or murmurs. Trace lower extremity edema, +2 dorsalis and radial pulses. Negative for jugular or carotid bruits. PULMONARY: Expiratory wheezes, very tight, very tachypneic. Abdominal muscles used for breathing. Very much so in acute distress. Some crackles in the bases. At the time he is on 06/05 L of oxygen was replaced with BiPAP and tolerating that much better GI: Soft, nontender, nondistended. Positive bowel sounds x4. EXTREMITIES: Decreased range of motion, decreased strength. NEUROLOGIC: Oriented to name. SKIN: Warm, dry, intact. LABORATORY DATA: White blood cells 33,000, hemoglobin 12, hematocrit 39, platelet count 400. INR is 1.02, PTT is 35. ABGs; pH 7.33, pCO2 of 57, PO2 51, bicarb 27, base excess 2.9, saturation 93%, lactate 0.7 and that was on 5 L of nasal cannula. Sodium 139, potassium 4.6, BUN 11, creatinine 0.8, glucose 131, calcium 9.9, magnesium 2.0, bilirubin 0.40, AST 16, ALT 15. Troponin is 52. ProBNP is 165. Albumin 4.0. Lactate 0.6. Urinalysis; trace protein. IMAGING: Chest x-ray, right basilar consolidation. ASSESSMENT AND PLAN: 1. Most likely is healthcare associated pneumonia in the right lower lobe, could be some aspiration. He is tachycardic. Lactate was normal. We will get him started on some broad- spectrum antibiotics. He did receive fluids for sepsis protocol, but he only received about a 1.5 L and then went into flash pulmonary edema. 2. Acute on chronic hypoxemic, hypercarbic chronic obstructive pulmonary disease, respiratory failure requiring immediate BiPAP placement. Most likely it appeared to be a flash pulmonary edema type scenario, so he received IV Lasix, IV steroids, nebulizers, chest x-ray, ABGs, pulmonary consult. 3. Fluid volume overload with signs and symptoms of flash pulmonary edema or acute heart failure. There is no reported history of heart failure. However, he does have trace lower extremity edema, though no echocardiogram has been performed here in the past, so we will go ahead and get one ordered for in the morning. Again, he received 40 of IV Lasix. Kidney function is normal. 4. Paroxysmal atrial fibrillation, currently sinus, but we will keep electrolytes normal. 5. Hypertension. Once home medications are verified will resume those. 6. GERD. Continue Zantac . 7. Deep venous thrombosis prophylaxis, Lovenox. Dictated by CHAIM Macias for Dylon Carranza MD cc: CHAIM Macias MD I agree with most components of history, physical, assessment and plan. A separate addendum has been dictated. ELISHA
--- NOTE | 2019-04-04 18:56 | HISTORY AND PHYSICAL ---
ADDENDUM: I agree with most components of the history physical, assessment and plan. In brief, Mr. Williamson is a 73 years old man with past medical history of CVA, status post mild right-sided weakness, COPD, hypertension, paroxysmal atrial fibrillation, who came in with chief complaints of shortness of breath and cough with some green colored phlegm. While in the ER he became extremely tachypneic and was started on BiPAP. SUBJECTIVE: At the time of my evaluation, patient is on BiPAP and he feels better. VITALS: Temperature of 100 degrees, pulse of 102, respiratory rate 30, blood pressure 150/70, saturating 100% on BiPAP. PHYSICAL EXAMINATION: GENERAL: He is not in acute distress. HEENT: Could not examine the oral cavity. LUNGS: He has decreased air entry bilaterally with end-expiratory wheezes. He also has right infrascapular inspiratory crackles. ABDOMEN: Soft, nontender. EXTREMITY: No lower extremity edema. NEUROLOGIC: He is alert. He is able to raise both upper extremities and lower extremities above ground level on command. He was able to flex and extend at the elbow, wrist, knee and ankle joints. LABS: Suggestive of leukocytosis with WBC of 33,000, hemoglobin 12.4, platelet 400,000. He does have hypercarbic respiratory failure with pCO2 of 57. His electrolytes are normal. MICROBIOLOGY: Blood culture in lab: Influenza screen was negative. Sputum culture has not been collected. ASSESSMENT AND PLAN: 1. Sepsis and acute hypoxic hypercapnic respiratory failure due to right lower lobe pneumonia. 2. Chronic obstructive pulmonary disease with acute exacerbation. 3. History of cerebrovascular accident on dual anti-platelet therapy. 4. Essential hypertension. 5. Paroxysmal atrial fibrillation. Plan: 1. The patient was resuscitated with intravenous fluids. He also got a dose of Lasix. I will keep him on inhaled bronchodilators, intravenous vancomycin, intravenous Zosyn and intravenous steroids. I will also keep him on proton pump inhibitors. 2. I will keep him on BiPAP and follow up with serial arterial blood gasses as well as lactate. DISPOSITION: I will monitor patient in PVC. Plan of care discussed with the patient. His questions have been answered. cc: Dylon Carranza MD
[2019-04-04] MEDS: DUONEB (A & A) INH SCH ×2 (19:29→23:30)
[2019-04-04] MEDS: VANCOMYCIN 2 GM in NS 500 ML IV SCH (19:33)
[2019-04-04 20:16] LABS: ALLEN TEST YES; BE 4.1 mmoll (-3.0-3.0); BLOOD TYPE ARTERIAL; HCO3-(ACT) 28.1 mmoll (20.0-26.0); METHB 1.1 % (0.0-1.5); O2(CT) 17.9 mL/dL (15.0-23.0); O2HB 96.8 % (95.0-99.0); PO2(98.6) 175 mmHg (60-100); SAMPLE BLOOD; SAO2 99.6 % (95.0-100.0); SRATE 4 BPM; THB 12.9 g/dL (11.5-17.4); pH(98.6) 7.37 (7.35-7.45)
[2019-04-04 20:18] LABS: MODALITY BI PAP
[2019-04-04 20:19] LABS: PCO2(98.6) 53 mmHg (35-45)
[2019-04-04] MEDS: COLACE PO SCH (22:11)
[2019-04-04] MEDS: ZOSYN 3.375 GM in NS 50 ML IV SCH (22:11)
[2019-04-04] MEDS: SOLU-MEDROL IV SCH (22:11)
[2019-04-04] MEDS: PEPCID PO SCH (22:11)
[2019-04-05] MEDS: DUONEB (A & A) INH SCH ×6 (03:35→23:04)
[2019-04-05] MEDS: SOLU-MEDROL IV SCH ×5 (04:24→23:04)
[2019-04-05] MEDS: ZOSYN 3.375 GM in NS 50 ML IV SCH ×4 (04:25→21:51)
[2019-04-05] MEDS: PROTONIX PO SCH ×2 (05:35→06:22)
[2019-04-05 06:59] LABS: BASO# 0.02 X1000 (0.0-0.2); BASO% 0.1 % (0.0-0.8); HEMATOCRIT 36.7 % (42.0-52.0); HEMOGLOBIN 11.3 g/dL (14.0-18.0); IMM GRAN# 0.13 X1000 (0.0-0.04); IMM GRAN% 0.4 % (0.0-0.5); LYMPH# 0.66 X1000 (1.2-3.4); LYMPH% 1.8 % (20.5-51.1); MCH 28.1 PG (27-31); MCHC 30.8 g/dL (33-37); MCV 91.3 FL (81-99); MONO# 1.07 X1000 (0.11-0.59); MPV 10.5 FL (7.4-10.4); NEUT# 34.13 X1000 (1.4-6.5); NEUT% 94.7 % (42.2-75.2); PLT 376 X1000 (130-400); RBC 4.02 XMIL (4.7-6.1); RDW 15.9 % (11.5-14.5); WBC 36.01 X1000 (4.8-10.8)
[2019-04-05 07:34] LABS: AGAP 13; ALBUMIN 3.6 g/dL (3.5-5.0); ALKALINE PHOSPHATASE 112 U/L (32-122); BUN 17 mg/dL (8-22); CALCIUM 9.1 mg/dL (8.8-10.2); CHLORIDE 99 mmol/L (98-107); COSMO 285; CREATININE 0.8 mg/dL (0.7-1.2); ESTIMATED GFR > 60; GLUCOSE 177 mg/dL (70-104); GOT 14 U/L (10-34); GPT 14 U/L (10-44); POTASSIUM 3.8 mmol/L (3.5-5.1); SODIUM 140 mmol/L (136-145); TCO2 28 mmol/L (25-35); TOTAL PROTEIN 7.1 g/dL (6.3-8.3)
[2019-04-05 08:01] LABS: BANDS 4 % (0-1); MONO 4 % (1-9); SEGS 92 % (42-75)
--- NOTE | 2019-04-05 08:08 | EKG Report ---
Test Performed on : 04/04/2019 3:08:17 PM Test Reason : ED. NO EKG ORDER FOR MUSE Blood Pressure : / mmHG Vent. Rate : 085 BPM Atrial Rate : 085 BPM P-R Int : 164 ms QRS Dur : 138 ms QT Int : 380 ms P-R-T Axes : 057 -56 048 degrees QTc Int : 452 ms Normal sinus rhythm. Right bundle branch block Left anterior fascicular block Bifascicular block Abnormal ECG When compared with ECG of 27-SEP-2018 23:58, fusion complexes are no longer present premature ventricular complexes. are no longer present Criteria for Septal infarct are no longer present Unconfirmed Result
[2019-04-05] MEDS ORDERED: ASPIRIN PO SCH (09:00)
[2019-04-05] MEDS ORDERED: PLAVIX PO SCH (09:00)
[2019-04-05] MEDS ORDERED: LOVENOX SUBQ SCH (09:00)
[2019-04-05] MEDS: MIRALAX PO SCH (09:44)
[2019-04-05] MEDS: PEPCID PO SCH ×2 (09:45→21:52)
[2019-04-05] MEDS: COLACE PO SCH ×2 (09:45→21:52)
[2019-04-05] MEDS: ZOLOFT PO SCH (09:45)
[2019-04-05] MEDS: NORVASC PO SCH (09:45)
[2019-04-05] MEDS: THERA M PLUS PO SCH (09:45)
[2019-04-05] MEDS: SYSTANE EYE DROPS BOTH EYES SCH ×3 (09:45→18:34)
[2019-04-05] MEDS: OSCAL 500 + D PO SCH (10:55)
--- NOTE | 2019-04-05 11:41 | Diag Imaging Result Doc PS360 ---
EXAM: CHEST-2 VIEWS HISTORY: Pneumonia TECHNIQUE: Two views COMPARISON: 04/04/2019 FINDINGS: The lungs are well expanded. The heart is not enlarged. The vessels are not distended. There are right basilar infiltrates. These are less pronounced. No pleural effusions. IMPRESSION: Interval improvement Electronically signed by Yusuf Love 04/05/2019 11:38 AM
--- NOTE | 2019-04-05 12:34 | PROGRESS NOTE ---
DATE: 04/05/2019 INTERVAL HISTORY: No acute events overnight. SUBJECTIVE: Mr. Williamson denies any complaints. He states he is feeling much better than yesterday. He was using BiPAP and currently using a nasal cannula. OBJECTIVE: Vitals Signs: Temperature of 99.4 degrees, pulse 80, respiratory rate 18, and blood pressure 127/51. He is saturating 93%. He uses 6 L nasal cannula. General: He is not in acute distress. HEENT: Oral cavity is moist. Lungs: He has audible wheezing. He has significantly decreased air entry bilateral lung marrufo. No rhonchi. No crackles. Cardiovascular: S1, S2 normal. No murmur or gallop. Abdomen: Soft. Nontender. No jugular venous distention. Extremities: No lower extremity edema. Neurologic: He is alert and oriented x3. LABORATORY: [place] [address], hemoglobin 11.3, and platelets 376,000. BMP is essentially unremarkable. MICROBIOLOGY: No positive data so far. Influenza screen on admission was negative. ASSESSMENT AND PLAN: 1. Sepsis and acute hypoxic, and hypercapnic respiratory failure due to right lower lobe pneumonia. Continue intravenous vancomycin and intravenous Zosyn. Follow up with sputum culture data. I will get CT scan to evaluate his right lung better to rule out any lung mass. 2. History of chronic obstructive pulmonary disease with acute exacerbation. Continue current dose of intravenous steroids and inhaled bronchodilators. Follow up daily ABG. 3. History of cerebrovascular accident on dual anti-platelet therapy, essential hypertension, and paroxysmal atrial fibrillation, currently stable. I will keep him on amlodipine, aspirin, clopidogrel, famotidine, as well as pantoprazole. DISPOSITION: Monitor patient's PVC. Plan of care discussed with him. His questions have been answered. I will start him on a clear liquid diet. cc: Dylon Carranza MD
--- NOTE | 2019-04-05 12:40 | Diag Imaging Result Doc PS360 ---
EXAM: CT THORAX W/O CONTRAST 04/05/2019 HISTORY: Right lower lung opacity. R/o Consolidation vs mas TECHNIQUE: This exam was performed using automated exposure control, adjustment of mA or kV according to patient size, and/or use of iterative reconstruction technique. COMMENT: The current study is compared with that of 05/08/2018. There is inspissated material present in the right mainstem bronchus and particularly in the bronchus intermedius. There is complete occlusion of the middle lobe bronchus with collapse of the middle lobe to a large extent. There is a mass in the perihilar portion of the right middle lobe. There is also some postobstructive pneumonitis in the right lower lobe. Some motion artifact is present. There is extensive coronary calcification. There are emphysematous changes particularly in the upper lungs. Multiple old rib fractures are present on the right. There is right hilar adenopathy. There is a pericardial effusion which at its greater extent anteriorly measures 7 mm in thickness. This is not significantly changed since the previous study. The adrenal glands are not enlarged. There are apparent cysts or other masses in the visualized portions of both kidneys there is a particularly dense nodular contour abnormality in the lateral left kidney with a CT density of over 35 Hounsfield units. This was also the case at the time the previous study. The visualized portions of the liver are within normal limits. The appearance of the regional skeleton has not changed significantly since the previous study. 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 Right hilar adenopathy. Electronically signed by Steve Cassidy 04/05/2019 12:37 PM
--- NOTE | 2019-04-05 17:13 | ECHO REPORT ---
ORDER DATE: 04/05/2019 INTERPRETING PHYSICIAN: Lisandro Lennon MD INDICATION: Shortness of breath. REQUESTING PHYSICIAN: Hospitalist. M-MODE MEASUREMENTS: Left ventricle end diastole: Not measurable. Left ventricle end systole: Not measurable. Posterior wall: Appear to measure up to 0.9 cm. Interventricular septum: Appear to measure up to 0.9 cm. SUMMARY OF 2-DIMENSIONAL IMAGING: The study is really very difficult. 1. The left ventricular systolic function appears to be normal, estimated at 63%. 2. The aortic valve is probably normal. Doppler interrogation is limited, seems to be grossly normal. 3. The mitral valve also appears to be grossly normal. Color flow mapping is unremarkable. 4. The pulse wave Doppler of mitral inflow shows mild reversal of the E and the A ratio. Ratio is 0.8. 5. Tissue Doppler of septal and lateral mitral annulus averages 10 cm. Diastolic function is probably normal. 6. A trivial pericardial effusion appears to be present. 7. The right-sided chambers are not enlarged. 8. The left atrium may be at the upper limits of normal. 9. The inferior vena cava is really suboptimally visualized. CONCLUSIONS: In summary, this echocardiographic study is very difficult. 1. Ejection fraction of the left ventricle appears to be normal at 63%. 2. Diastolic function appears to be normal. 3. The pulmonary pressure is probably at the upper limits of normal. RECOMMENDATIONS: If significant cardiac pathology is suspected, consider doing a transesophageal echocardiogram. Otherwise, if chest pathology is suspected do a CTA scan of the chest. cc: MD Gianna Raman CRNP
--- NOTE | 2019-04-05 18:25 | PROVIDER PROGRESS NOTE ---
Progress Note Patient has been seen and examined. A full dictation to follow.
[2019-04-05] MEDS: VANCOMYCIN 2 GM in NS 500 ML IV SCH (18:38)
--- NOTE | 2019-04-05 21:14 | PULMONOLOGY CONSULTATION ---
DATE: 04/05/2019 REQUESTING PROVIDER: CHAIM Macias. REASON FOR CONSULTATION: Respiratory failure. HISTORY OF PRESENT ILLNESS: This is a 73-year-old male with a medical history of recurrent pneumonia, advanced COPD, pulmonary fibrosis, cerebrovascular accident, hypertension, paroxysmal atrial fibrillation, and mild dementia. He has been admitted since 04/04/2019 with sepsis, acute hypoxic hypercapnic respiratory failure secondary to right lower lobe pneumonia, COPD with acute exacerbation. Echocardiogram today is basically unremarkable. Chest CT today showed endobronchial mass in the distal bronchus intermedius or middle lobe bronchus with near complete atelectasis of right middle lobe and atelectasis and/or post obstructive pneumonia in the right lower lobe and right hilar adenopathy. Apparently in the ER during the assessment patient became very tachypneic with very high work of breathing consistent with pulmonary flash edema. He was put on BiPAP and also received steroid and Lasix. Currently, he is still on broad-spectrum antibiotics including vancomycin and Zosyn. The patient at this time is lying in bed on nasal cannula at 4 L with some shortness of breath at rest noted. He also has some audible expiratory bubbling breathing sounds. He states he is feeling much better. He is still complaining of some productive cough, shortness of breath and wheezing. He reports no chest pain, palpitation, fever, chills, nausea, bowel habit change, urination discomfort, weakness or pedal edema. PAST MEDICAL HISTORY: 1. Airway penetration with thin liquid barium and possible mild aspiration identified on barium swallow on 03/28/2016. Barium swallow on 05/12/2018 showed flash penetration with successive rapid thin liquid barium swallows, but no aspiration is appreciated. 2. Left lower lobe irregular nodule 2.2 x 1.5 cm axillary near the lung base post CT on 02/11/2018. CT on to 03/16/2018 showed interval decrease in the size of the left lower lobe nodule. CT on 05/08/2018 showed a very small endobronchial body 6.6 mm in the right bronchial tree. Bronchoscopy on 05/11/[address] Oates showed mucous membranes trabeculation and cytology report of bilateral lung washing showed negative for malignancy. 3. Recurrent pneumonia, especially left lower lobe pneumonia with three times of hospitalization since 02/10/2018. 4. Cerebrovascular accident five years ago with right-sided weakness. The patient apparently is nonambulatory. 5. Hypertension. 6. Advanced chronic obstructive pulmonary disease with pulmonary fibrosis, on oxygen 3 L at night as needed. 7. Tobacco abuse with over 60 pack year. Quit over one year ago. 8. Gastroesophageal reflux disease per CT abdomen and pelvis with IV contrast on 09/28/2018. 9. Paroxysmal atrial fibrillation, on aspirin and Plavix at home. 10. Mild dementia. 11. Seasonal allergies. 12. Chronic leukocytosis. PAST SURGICAL HISTORY: Bilateral cataract surgery. SOCIAL HISTORY: The patient lives at [facility]. He used to smoke one pack per day since he was 10 years old and quit over one year ago. He has no history of alcohol or illicit drug use. FAMILY HISTORY: Positive for hypertension. ALLERGIES: Apixaban. REVIEW OF SYSTEMS: A 10-point review of systems was conducted and the pertinent is listed within the HPI, otherwise noncontributory. PHYSICAL EXAMINATION: Vital Signs: Temperature 99.4, blood pressure 131/56, pulse 81, respiratory rate 24, oxygen saturation 92% on nasal cannula at 4 L. General: Well developed, well nourished, in mild acute respiratory distress with audible expiratory bubbling breathing sounds. HEENT: Atraumatic. Trachea midline. Mucosa pink and slightly dry. Respiratory: Mildly tachypneic. Symmetrical excursion. Auscultation revealed significantly decreased diminished breathing sounds bilaterally. Cardiovascular: Regular rate and rhythm with S1 and S2 appreciated. Gastrointestinal: Soft, nontender, obese. Normoactive bowel sounds in all four quadrants. Extremities: No pedal edema. No cyanosis. No clubbing. Neurologic: Alert and oriented x3. Speech fluent. Follows commands. LAB DATA: White blood cells 46.01, hemoglobin 11.3, hematocrit 36.7, platelets 376,000. Sodium 140, potassium 3.8, chloride 99, carbon dioxide 28, BUN 17, creatinine 0.8, glucose 177. IMAGING DATA: See HPI for CT thorax without contrast. ASSESSMENT: This is a 73-year-old male with a medical history of airway penetration, left lower lobe irregular nodule, recurring pneumonia, cerebrovascular accident, hypertension, advanced chronic obstructive pulmonary disease, pulmonary fibrosis, history of tobacco abuse, gastroesophageal reflux disease, paroxysmal atrial fibrillation, mild dementia, seasonal allergies, and chronic leukocytosis. He has been admitted since 04/04/2019 with right lower lobe pneumonia, acute hypoxic hypercapnic respiratory failure, sepsis, acute chronic obstructive pulmonary disease exacerbation. 1. Acute respiratory failure. 2. 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 3. Right hilar adenopathy. 4. Chronic obstructive pulmonary disease exacerbation. PLAN: 1. Continue supplemental oxygen and BiPAP as needed. 2. Continue broad spectrum antibiotics including vancomycin and Zosyn per Dr. Carranza. 3. Continue bronchodilators and IV Solu-Medrol 4. Consider bronchoscopy. We will hold aspirin and Plavix for at least one week if approved by Dr. Carranza. We will keep patient on Lovenox 24 hours before procedure. 5. Outpatient PET scan followup. 6. Further recommendations pending hospital course. Total evaluation time in minutes: 34. Dr. Oates did the evaluation, examination (Face to face) and management. GRAVITY [employer]OSPECTING OPERATOR HELPER did the scribing/dictation for Dr. Oates according to his directions. Thank you for the courtesy of this consult. Dictated by CHAIM Skelton for Clement Oates MD cc: CHAIM Skelton MD [facility]
[2019-04-06] MEDS: DUONEB (A & A) INH SCH ×6 (03:09→23:50)
[2019-04-06] MEDS: ZOSYN 3.375 GM in NS 50 ML IV SCH ×4 (05:33→21:48)
[2019-04-06] MEDS: SOLU-MEDROL IV SCH ×4 (05:33→22:18)
[2019-04-06] MEDS: PROTONIX PO SCH ×2 (05:35→06:18)
[2019-04-06] MEDS ORDERED: HEPARIN IV ONE (06:16)
[2019-04-06 06:42] LABS: AGAP 11; ALB/GLOB RATIO 1.1; ALBUMIN 3.4 g/dL (3.5-5.0); ALKALINE PHOSPHATASE 103 U/L (32-122); BUN 21 mg/dL (8-22); CHLORIDE 101 mmol/L (98-107); COSMO 285; CREATININE 0.7 mg/dL (0.7-1.2); ESTIMATED GFR > 60; GLUCOSE 185 mg/dL (70-104); GOT 14 U/L (10-34); GPT 12 U/L (10-44); SODIUM 139 mmol/L (136-145); TCO2 27 mmol/L (25-35); TOTAL BILIRUBIN 0.16 mg/dL (0.20-1.00); TOTAL PROTEIN 6.6 g/dL (6.3-8.3)
[2019-04-06 06:45] LABS: BASO# 0.01 X1000 (0.0-0.2); HEMATOCRIT 33.8 % (42.0-52.0); HEMOGLOBIN 10.6 g/dL (14.0-18.0); IMM GRAN# 0.12 X1000 (0.0-0.04); IMM GRAN% 0.4 % (0.0-0.5); LYMPH# 0.73 X1000 (1.2-3.4); LYMPH% 2.5 % (20.5-51.1); MCHC 31.4 g/dL (33-37); MCV 89.4 FL (81-99); MONO# 1.74 X1000 (0.11-0.59); MPV 10.7 FL (7.4-10.4); NEUT# 26.22 X1000 (1.4-6.5); NEUT% 91.1 % (42.2-75.2); PLT 368 X1000 (130-400); RBC 3.78 XMIL (4.7-6.1); RDW 15.8 % (11.5-14.5); WBC 28.82 X1000 (4.8-10.8)
[2019-04-06 07:42] LABS: INR 1.1; PROTIME 14.4 Seconds (11.0-16.0); PTT 32.8 Seconds (22.3-41.8)
[2019-04-06] MEDS: HEPARIN 25,000 UNITS/D5W 25,000 UNIT/250 ML IV.SOLN IV SCH (07:46)
[2019-04-06] MEDS: ZOLOFT PO SCH (09:52)
[2019-04-06] MEDS: SYSTANE EYE DROPS BOTH EYES SCH ×3 (09:52→16:29)
[2019-04-06] MEDS: THERA M PLUS PO SCH (09:52)
[2019-04-06] MEDS: NORVASC PO SCH (09:52)
[2019-04-06] MEDS: OSCAL 500 + D PO SCH (09:52)
[2019-04-06] MEDS: PEPCID PO SCH ×2 (09:52→21:48)
[2019-04-06] MEDS: COLACE PO SCH ×2 (09:53→21:48)
[2019-04-06] MEDS: MIRALAX PO SCH (09:53)
[2019-04-06] MEDS ORDERED: LASIX IV ONE (13:19)
[2019-04-06] MEDS: VANCOMYCIN 2 GM in NS 500 ML IV SCH (17:55)
--- NOTE | 2019-04-06 18:58 | PROVIDER PROGRESS NOTE ---
Progress Note Dr. Oates Progress Note/Pulmonary and or critical care We appreciated progress of care, Complications, change in diagnosis, and instructions to patient. Subjective: We note the level of consciousness, bed (chair) position, family presence (if any), level of lethargy, feeling of symptoms, and changes from baseline condition/symptom. Patient is lying in bed with no acute distress noted. He states he is feeling same as yesterday. He denies any pain. He still has occasional productive cough, severe SOB and wheezing. He reports he did not use BiPAP overnight. Objective: Vital Signs: We reviewed EMR current values for Pulse rate, Blood pressure, Pulse rate, respiratory rate and Pulse oximetry. Also noted other values and trends if present (e.g. I/O, CVP). T 98.6, [place] 73, RR 24, BP 153/65 and SaO2 94% on NC 5L. Physical Examination: General: Lying in bed with no acute distress noted. HEENT: Normocephalic. Atraumatic. Trachea midline. Mucosa pink and slightly dry. Chest: Mild tachypneic with audible expiratory bubbling breathing sounds. No increased work of breathing or accessory muscle use. Symmetrical excursion. Auscultation reveals inspiratory and expiratory wheezing with inspiratory crackles bilaterally. CVS: Regular rate and rhythm with S1 and S2 appreciated. Abdomen: Soft. Nondistended. Obese. Normoactive bowel sounds in all 4 quadrants. Extremities: No pedal edema. No cyanosis. No clubbing. Neuro: A/O x3. Speech fluent. Following commands. Labs and Radiology: Reviewed available labs and radiology values available at time of EMR review. Laboratory Results 04/04/19 04/04/19 04/06/19 14:56 14:56 05:44 WBC RBC Hgb Hct MCV MCH MCHC RDW Std Deviation Plt Count MPV Immature Gran % (Auto) Neut % (Auto) Lymph % (Auto) [place] % (Auto) Eos % (Auto) Baso % (Auto) Immature Gran # (Auto) Neut # (Auto) Lymph # (Auto) [place] # (Auto) Eos # (Auto) Baso # (Auto) PT INR PTT (Actin FS) PTT (Heparin Protocol) Sodium 139 Potassium 4.0 Chloride 101 Carbon Dioxide 27 Anion Gap 11 BUN 21 Creatinine 0.7 Estimated GFR/1.73 m2 > 60 BUN/Creatinine Ratio 30 Glucose 185 H Calculated Osmolality 285 Calcium 9.0 Total Bilirubin 0.16 L AST 14 ALT 12 Alkaline Phosphatase 103 Total Protein 6.6 Albumin 3.4 L Globulin 3.2 Albumin/Globulin Ratio 1.1 Urine Legionella Ag SEE COMMENTS Ur Strep pneumoniae Ag SEE COMMENTS 04/06/19 04/06/19 04/06/19 05:44 06:57 13:54 WBC 28.82 H RBC 3.78 L Hgb 10.6 L Hct 33.8 L MCV 89.4 MCH 28.0 MCHC 31.4 L RDW Std Deviation 15.8 H Plt Count 368 MPV 10.7 H Immature Gran % (Auto) 0.4 Neut % (Auto) 91.1 H Lymph % (Auto) 2.5 L [place] % (Auto) 6.0 Eos % (Auto) 0.0 Baso % (Auto) 0.0 Immature Gran # (Auto) 0.12 H Neut # (Auto) 26.22 H Lymph # (Auto) 0.73 L [place] # (Auto) 1.74 H Eos # (Auto) 0.00 Baso # (Auto) 0.01 PT 14.4 INR 1.10 PTT (Actin FS) 32.8 PTT (Heparin Protocol) 62.6 Sodium Potassium Chloride Carbon Dioxide Anion Gap BUN Creatinine Estimated GFR/1.73 m2 BUN/Creatinine Ratio Glucose Calculated Osmolality Calcium Total Bilirubin AST ALT Alkaline Phosphatase Total Protein Albumin Globulin Albumin/Globulin Ratio Urine Legionella Ag Ur Strep pneumoniae Ag Assessment: Acute respiratory failure. 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 Right hilar adenopathy. COPD exacerbation. Plan: Continue current treatment and supportive care per admitting and other teams on the case. Continue supplemental oxygen and BiPAP as needed. Antibiotics including Zosyn and vancomycin per Dr. Carranza. Bronchodilators and IV Solu-Medrol. Bronchoscopy planning. Aspirin and Plavix held. Continue Lovenox. Outpatient PET scan followup. Input was appreciated from Admitting MD and other teams on the case. Evaluation time in minutes: 34 minutes.
[2019-04-06] MEDS: MUCOMYST 20% INH SCH (20:04)
--- NOTE | 2019-04-06 21:59 | PROGRESS NOTE ---
DATE: 04/06/2019 SUBJECTIVE: The patient is resting comfortably in bed. He has no complaints. He does have a productive loose cough. OBJECTIVE: Vital signs: Temperature 98 degrees, blood pressure 125/61, heart rate 87, respirations 23, O2 saturations 92% on 6 L nasal cannula. Intake 1.1 L, output 1.7 L.General: This is a chronically ill-appearing elderly male lying in bed in no acute distress. Heart: S1, S2. Normal. Lungs: Coarse breath sounds bilaterally. Abdomen: Positive bowel sounds. Soft, nontender, nondistended. Extremities: Edema 1+ bilaterally. Neurologic: The patient is hard of hearing but alert and oriented x3. LABORATORY DATA: White blood cell count 28, hemoglobin 10, hematocrit 33, platelets 368,000. Sodium 139, potassium 4, chloride 101, CO2 is 27, BUN 21, creatinine 0.7. ASSESSMENT AND PLAN: 1. Acute hypercapnic and hypoxemic respiratory failure. Multifactorial. The patient is being treated for pneumonia and chronic obstructive pulmonary disease. 2. Pneumonia. Continue with broad-spectrum antibiotics. So far, the blood cultures are negative. The sputum culture is currently pending. The patient is currently on 6 L of supplemental oxygen. Further recommendations to follow from the high value associate. 3. Endobronchial mass, with right hilar adenopathy. This was discussed with Dr. Oates, and he plans to do a bronchoscopy early next week if the patient is still here in the hospital, or he will arrange for it to be done as outpatient. 4. Pericardial effusion. The echocardiogram reveals that this is a very small pericardial effusion. We will continue to monitor closely. 5. History of cerebrovascular accident. The patient's dual antiplatelet therapy is on hold due to the scheduled bronchoscopy. The patient is on a heparin drip at this time. 6. Paroxysmal atrial fibrillation. The patient is rate controlled. Continue to monitor closely. The patient is on a heparin drip. 7. Chronic obstructive pulmonary disease exacerbation. Continue on steroids and bronchodilator therapy. 8. Constipation. The patient had a bowel movement today. Continue on MiraLAX. 9. Hypertension, controlled. Continue on the current antihypertensive regimen. 10. We will consult with the physical therapist. cc: Ryann Jeffries MD MTDD
[2019-04-07] MEDS: DUONEB (A & A) INH SCH ×6 (03:20→22:25)
[2019-04-07] MEDS: ZOSYN 3.375 GM in NS 50 ML IV SCH ×5 (04:11→21:08)
[2019-04-07] MEDS: SOLU-MEDROL IV SCH ×3 (04:11→17:32)
[2019-04-07] MEDS: PROTONIX PO SCH (06:20)
[2019-04-07] MEDS: HEPARIN 25,000 UNITS/D5W 25,000 UNIT/250 ML IV.SOLN IV SCH (06:31)
[2019-04-07 06:58] LABS: BASO# 0.01 X1000 (0.0-0.2); HEMATOCRIT 33.7 % (42.0-52.0); HEMOGLOBIN 10.6 g/dL (14.0-18.0); IMM GRAN# 0.08 X1000 (0.0-0.04); IMM GRAN% 0.4 % (0.0-0.5); LYMPH# 0.59 X1000 (1.2-3.4); LYMPH% 2.8 % (20.5-51.1); MCH 28.4 PG (27-31); MCHC 31.5 g/dL (33-37); MCV 90.3 FL (81-99); MONO# 1.52 X1000 (0.11-0.59); MONO% 7.3 % (1.7-9.3); MPV 10.7 FL (7.4-10.4); NEUT# 18.56 X1000 (1.4-6.5); NEUT% 89.5 % (42.2-75.2); PLT 406 X1000 (130-400); RBC 3.73 XMIL (4.7-6.1); RDW 16.1 % (11.5-14.5); WBC 20.76 X1000 (4.8-10.8)
[2019-04-07 07:16] LABS: AGAP 11; ALBUMIN 3.3 g/dL (3.5-5.0); ALKALINE PHOSPHATASE 93 U/L (32-122); BUN 22 mg/dL (8-22); CALCIUM 9.2 mg/dL (8.8-10.2); CHLORIDE 102 mmol/L (98-107); COSMO 291; CREATININE 0.8 mg/dL (0.7-1.2); ESTIMATED GFR > 60; GLUCOSE 221 mg/dL (70-104); GOT 15 U/L (10-34); GPT 15 U/L (10-44); POTASSIUM 3.7 mmol/L (3.5-5.1); SODIUM 141 mmol/L (136-145); TCO2 28 mmol/L (25-35); TOTAL BILIRUBIN 0.23 mg/dL (0.20-1.00); TOTAL PROTEIN 6.5 g/dL (6.3-8.3)
[2019-04-07] MEDS: MUCOMYST 20% INH SCH ×2 (08:11→20:42)
[2019-04-07] MEDS: COLACE PO SCH ×2 (08:56→21:08)
[2019-04-07] MEDS: MIRALAX PO SCH (08:56)
[2019-04-07] MEDS: THERA M PLUS PO SCH (08:56)
[2019-04-07] MEDS: OSCAL 500 + D PO SCH (08:57)
[2019-04-07] MEDS: SYSTANE EYE DROPS BOTH EYES SCH ×3 (08:57→21:08)
[2019-04-07] MEDS: ZOLOFT PO SCH (08:57)
[2019-04-07] MEDS: NORVASC PO SCH (08:57)
[2019-04-07] MEDS: PEPCID PO SCH ×2 (08:57→21:08)
[2019-04-07 10:53] LABS: LYMPHS 3 % (21-51); MONO 6 % (1-9); SEGS 91 % (42-75)
[2019-04-07] MEDS: HEPARIN IV PRN (11:03)
--- NOTE | 2019-04-07 11:04 | PROGRESS NOTE ---
DATE: 04/07/2019 SUBJECTIVE: The patient is resting comfortably in bed. No acute events noted overnight. OBJECTIVE: Vital Signs: Temperature 98.8 degrees, blood pressure 153/64, heart rate 74, respirations 18, and O2 saturation 99% on BiPAP. General: This is a chronically ill-appearing elderly male, lying in bed comfortably, in no acute distress. Heart: S1 and S2 normal. Regular rate and rhythm. Lungs: Equal air entry bilaterally. Abdomen: Positive bowel sounds. Soft, nontender, nondistended. Extremities: No edema, no cyanosis. Neurologic: The patient is alert and oriented x3, but hard of hearing. LABORATORY DATA: White blood cell count 20, hemoglobin 10, hematocrit 33, platelets 406,000. Sodium 141, potassium 3.7, chloride 102, CO2 of 28, BUN 22, creatinine 0.8, glucose 221. ASSESSMENT AND PLAN: 1. Acute on chronic hypercapnic and hypoxemic respiratory failure. Continue on the current treatment regimen. 2. Pneumonia. Continue with the current antibiotic regimen. We will also continue on supplemental oxygen and bronchodilator therapy. The patient has been provided with an incentive spirometer. 3. Endobronchial mass with a right hilar adenopathy. The patient will likely undergo bronchoscopy early next week. 4. History of atrial fibrillation. Continue on a heparin drip. The patient is currently rate controlled. 5. History of cerebrovascular accident. The patient's Plavix and aspirin are on hold due to the scheduled bronchoscopy. 6. Chronic obstructive pulmonary disease exacerbation. Continue on IV steroids, bronchodilator therapy, supplemental oxygen, and antibiotics. 7. Constipation. Continue on laxative therapy. 8. Hypertension. Continue on the current antihypertensive regimen. cc: Ryann Jeffries MD [facility]
--- NOTE | 2019-04-07 13:47 | PROVIDER PROGRESS NOTE ---
Progress Note Dr. Oates Progress Note/Pulmonary and or critical care We appreciated progress of care, Complications, change in diagnosis, and instructions to patient. Subjective: We note the level of consciousness, bed (chair) position, family presence (if any), level of lethargy, feeling of symptoms, and changes from baseline condition/symptom. Patient is lying in bed with a BiPAP mask on. He apparently desaturated at an earlier time when they switched him from BiPAP to VM 50%. We try put him on VM 5 0% again during my encounter. His SaO2 stays at 91%. He has some mild stridor, but no food or pill in the back of the throat or angioedema noted. His mucosa is relatively dry. He has some dry cough during my encounter. Swallow evaluation has been held since this morning as patient was on BiPAP at that time with agitation. Objective: Vital Signs: We reviewed EMR current values for Pulse rate, Blood pressure, Pulse rate, respiratory rate and Pulse oximetry. Also noted other values and trends if present (e.g. I/O, CVP). T 98.2, [place] 81, RR 25, BP 125/67 and SaO2 94% on VM 50%. Physical Examination: General: Lying in bed with no acute distress noted. HEENT: Normocephalic. Atraumatic. Trachea midline. Mucosa pink and relatively dry. Chest: Mild tachypneic with mild stridor. No increased work of breathing or accessory muscle use. Symmetrical excursion. Auscultation reveals expiratory wheezing and inspiratory crackles bilaterally. CVS: Regular rate and rhythm with S1 and S2 appreciated. Abdomen: Soft. Nondistended. Obese. Normoactive bowel sounds in all 4 quadrants. Extremities: No pedal edema. No cyanosis. No clubbing. Neuro: A/O x3. Speech fluent. Following commands. Labs and Radiology: Reviewed available labs and radiology values available at time of EMR review. Laboratory Results 04/06/19 04/06/19 04/07/19 13:54 21:00 06:00 WBC RBC Hgb Hct MCV MCH MCHC RDW Std Deviation Plt Count MPV Immature Gran % (Auto) Neut % (Auto) Lymph % (Auto) [place] % (Auto) Eos % (Auto) Baso % (Auto) Immature Gran # (Auto) Neut # (Auto) Lymph # (Auto) [place] # (Auto) Eos # (Auto) Baso # (Auto) Segmented Neutrophils Lymphocytes Monocytes PTT (Heparin Protocol) 62.6 69.9 Sodium 141 Potassium 3.7 Chloride 102 Carbon Dioxide 28 Anion Gap 11 BUN 22 Creatinine 0.8 Estimated GFR/1.73 m2 > 60 BUN/Creatinine Ratio 28 Glucose 221 H Calculated Osmolality 291 Calcium 9.2 Total Bilirubin 0.23 AST 15 ALT 15 Alkaline Phosphatase 93 Total Protein 6.5 Albumin 3.3 L Globulin 3.2 Albumin/Globulin Ratio 1.0 04/07/19 04/07/19 06:00 09:37 WBC 20.76 H RBC 3.73 L Hgb 10.6 L Hct 33.7 L MCV 90.3 MCH 28.4 MCHC 31.5 L RDW Std Deviation 16.1 H Plt Count 406 H MPV 10.7 H Immature Gran % (Auto) 0.4 Neut % (Auto) 89.5 H Lymph % (Auto) 2.8 L [place] % (Auto) 7.3 Eos % (Auto) 0.0 Baso % (Auto) 0.0 Immature Gran # (Auto) 0.08 H Neut # (Auto) 18.56 H Lymph # (Auto) 0.59 L [place] # (Auto) 1.52 H Eos # (Auto) 0.00 Baso # (Auto) 0.01 Segmented Neutrophils 91 H Lymphocytes 3 L Monocytes 6 PTT (Heparin Protocol) 54.5 Sodium Potassium Chloride Carbon Dioxide Anion Gap BUN Creatinine Estimated GFR/1.73 m2 BUN/Creatinine Ratio Glucose Calculated Osmolality Calcium Total Bilirubin AST ALT Alkaline Phosphatase Total Protein Albumin Globulin Albumin/Globulin Ratio Assessment: Acute respiratory failure. 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 Right hilar adenopathy. COPD exacerbation. Plan: Continue current treatment and supportive care per admitting and other teams on the case. Continue supplemental oxygen and BiPAP as needed. Antibiotics including Zosyn and vancomycin. Bronchodilators, mucomyst and IV Solu-Medrol. Bronchoscopy planning. Aspirin and Plavix held. Continue Lovenox. Outpatient PET scan followup. Discuss patients condition and care plan with patients daughter via phone and all questions have been answered. Input was appreciated from Admitting MD and other teams on the case. Evaluation time in minutes: 33 minutes.
[2019-04-07] MEDS: VANCOMYCIN 2 GM in NS 500 ML IV SCH (18:17)
[2019-04-08] MEDS: SOLU-MEDROL IV SCH ×5 (00:02→22:04)
[2019-04-08] MEDS: DUONEB (A & A) INH SCH ×6 (03:35→23:35)
[2019-04-08] MEDS: HEPARIN 25,000 UNITS/D5W 25,000 UNIT/250 ML IV.SOLN IV SCH ×2 (04:13→06:00)
[2019-04-08] MEDS: ZOSYN 3.375 GM in NS 50 ML IV SCH ×5 (04:13→22:04)
[2019-04-08] MEDS: PROTONIX PO SCH ×2 (05:50→06:03)
[2019-04-08 06:12] LABS: BASO# 0.02 X1000 (0.0-0.2); BASO% 0.1 % (0.0-0.8); HEMATOCRIT 35.1 % (42.0-52.0); HEMOGLOBIN 10.8 g/dL (14.0-18.0); IMM GRAN# 0.21 X1000 (0.0-0.04); IMM GRAN% 1.2 % (0.0-0.5); LYMPH# 0.68 X1000 (1.2-3.4); LYMPH% 3.9 % (20.5-51.1); MCHC 30.8 g/dL (33-37); MCV 90.9 FL (81-99); MONO# 1.18 X1000 (0.11-0.59); MONO% 6.8 % (1.7-9.3); MPV 10.8 FL (7.4-10.4); NEUT# 15.16 X1000 (1.4-6.5); PLT 417 X1000 (130-400); RBC 3.86 XMIL (4.7-6.1); RDW 15.9 % (11.5-14.5); WBC 17.25 X1000 (4.8-10.8)
[2019-04-08 06:17] LABS: ALLEN TEST YES; BE 4.9 mmoll (-3.0-3.0); BLOOD TYPE ARTERIAL; HCO3-(ACT) 28.7 mmoll (20.0-26.0); METHB 0.8 % (0.0-1.5); O2(CT) 15.4 mL/dL (15.0-23.0); O2HB 92.8 % (95.0-99.0); PCO2(98.6) 48 mmHg (35-45); PO2(98.6) 64 mmHg (60-100); SAMPLE BLOOD; SAO2 94.9 % (95.0-100.0); THB 11.8 g/dL (11.5-17.4); pH(98.6) 7.41 (7.35-7.45)
[2019-04-08 06:18] LABS: MODALITY VENTIMASK
[2019-04-08 06:36] LABS: AGAP 12; ALBUMIN 3.2 g/dL (3.5-5.0); ALKALINE PHOSPHATASE 85 U/L (32-122); BUN 19 mg/dL (8-22); CALCIUM 8.9 mg/dL (8.8-10.2); CHLORIDE 104 mmol/L (98-107); COSMO 294; CREATININE 0.8 mg/dL (0.7-1.2); ESTIMATED GFR > 60; GLUCOSE 191 mg/dL (70-104); GOT 13 U/L (10-34); GPT 14 U/L (10-44); POTASSIUM 3.9 mmol/L (3.5-5.1); SODIUM 144 mmol/L (136-145); TCO2 28 mmol/L (25-35); TOTAL BILIRUBIN 0.19 mg/dL (0.20-1.00); TOTAL PROTEIN 6.3 g/dL (6.3-8.3)
[2019-04-08] MEDS: MUCOMYST 20% INH SCH ×2 (08:00→19:51)
[2019-04-08] MEDS: MIRALAX PO SCH (08:26)
[2019-04-08] MEDS: ZOLOFT PO SCH (08:27)
[2019-04-08] MEDS: COLACE PO SCH ×2 (08:27→20:35)
[2019-04-08] MEDS: NORVASC PO SCH (08:27)
[2019-04-08] MEDS: SYSTANE EYE DROPS BOTH EYES SCH ×3 (08:27→17:30)
[2019-04-08] MEDS: THERA M PLUS PO SCH (08:27)
[2019-04-08] MEDS: OSCAL 500 + D PO SCH (08:27)
[2019-04-08] MEDS: PEPCID PO SCH ×2 (08:27→20:35)
--- NOTE | 2019-04-08 09:25 | Diag Imaging Result Doc PS360 ---
CHEST-1 VIEW - 04/08/2019 INDICATION: dyspnea COMPARISON: 04/05/2019 FINDINGS: There is better visualization of a nodular opacity in the right lung base. This measures about 3 cm. Nearby there is some adjacent infiltrate or consolidation. There is some patchy atelectasis at the left lung base. Lung volumes are low. Heart size is top normal. IMPRESSION: 1. Right basilar pulmonary nodule and infiltrate. 2. Please note, on the prior CT from 04/05/2019, there is an endobronchial mass at the bifurcation of the left lower lobe bronchus. This causes severe bronchial obstruction. This measures 7.8 mm in size. This is of soft tissue density. This is either an endobronchial mass or an inhaled object such as food. Electronically signed by Patrice Bradley 04/08/2019 9:23 AM
[2019-04-08] MEDS: VANCOMYCIN 2 GM in NS 500 ML IV SCH (12:37)
--- NOTE | 2019-04-08 16:15 | PROVIDER PROGRESS NOTE ---
Progress Note Dr. Oates Progress Note/Pulmonary and or critical care We appreciated progress of care, Complications, change in diagnosis, and instructions to patient. Subjective: We note the level of consciousness, bed (chair) position, family presence (if any), level of lethargy, feeling of symptoms, and changes from baseline condition/symptom. Patient is lying in bed with venturi mask on. BiPAP at night. His SaO2 at 90%. His mucosa is relatively dry. He has some dry cough during my encounter. Swallow evaluation has been held since this morning as patient was on BiPAP at that time with agitation. Objective: Vital Signs: We reviewed EMR current values for Pulse rate, Blood pressure, Pulse rate, respiratory rate and Pulse oximetry. Also noted other values and trends if present (e.g. I/O, CVP). T 97.6, [place] 68, RR 17, BP 151/69and SaO2 90% on VM 50%. Physical Examination: General: Lying in bed with no acute distress noted. HEENT: Normocephalic. Atraumatic. Trachea midline. Mucosa pink and relatively dry. Chest: Mild tachypneic with mild stridor. No increased work of breathing or accessory muscle use. Symmetrical excursion. Auscultation reveals expiratory wheezing and inspiratory crackles bilaterally. CVS: Regular rate and rhythm with S1 and S2 appreciated. Abdomen: Soft. Nondistended. Obese. Normoactive bowel sounds in all 4 quadrants. Extremities: No pedal edema. No cyanosis. No clubbing. Neuro: A/O x3. Speech fluent. Following commands. Labs and Radiology: Reviewed available labs and radiology values available at time of EMR review. Laboratory Results 04/07/19 04/07/19 04/07/19 16:03 16:03 21:53 WBC RBC Hgb Hct MCV MCH MCHC RDW Std Deviation Plt Count MPV Immature Gran % (Auto) Neut % (Auto) Lymph % (Auto) [place] % (Auto) Eos % (Auto) Baso % (Auto) Immature Gran # (Auto) Neut # (Auto) Lymph # (Auto) [place] # (Auto) Eos # (Auto) Baso # (Auto) PTT (Heparin Protocol) 130.4 D 93.0 Specimen Type Sample Site pH pCO2 pO2 HCO3 Base Excess Oxyhemoglobin ABG O2 Sat (Calculated) ABG O2 Saturation ABG Carboxyhemoglobin ABG Methemoglobin Danny Test A-a O2 Difference Total Hemoglobin Lactate Liter Flow Blood Gas Modality FiO2 % Sodium Potassium Chloride Carbon Dioxide Anion Gap BUN Creatinine Estimated GFR/1.73 m2 BUN/Creatinine Ratio Glucose Calculated Osmolality Calcium Total Bilirubin AST ALT Alkaline Phosphatase Lgo-C-Kkuxsxnfdyj Pept Total Protein Albumin Globulin Albumin/Globulin Ratio Random Vancomycin 12.70 04/08/19 04/08/19 04/08/19 05:36 05:36 05:36 WBC 17.25 H RBC 3.86 L Hgb 10.8 L Hct 35.1 L MCV 90.9 MCH 28.0 MCHC 30.8 L RDW Std Deviation 15.9 H Plt Count 417 H MPV 10.8 H Immature Gran % (Auto) 1.2 H Neut % (Auto) 88.0 H Lymph % (Auto) 3.9 L [place] % (Auto) 6.8 Eos % (Auto) 0.0 Baso % (Auto) 0.1 Immature Gran # (Auto) 0.21 H Neut # (Auto) 15.16 H Lymph # (Auto) 0.68 L [place] # (Auto) 1.18 H Eos # (Auto) 0.00 Baso # (Auto) 0.02 PTT (Heparin Protocol) 84.9 Specimen Type Sample Site pH pCO2 pO2 HCO3 Base Excess Oxyhemoglobin ABG O2 Sat (Calculated) ABG O2 Saturation ABG Carboxyhemoglobin ABG Methemoglobin Danny Test A-a O2 Difference Total Hemoglobin Lactate Liter Flow Blood Gas Modality FiO2 % Sodium 144 Potassium 3.9 Chloride 104 Carbon Dioxide 28 Anion Gap 12 BUN 19 Creatinine 0.8 Estimated GFR/1.73 m2 > 60 BUN/Creatinine Ratio 24 Glucose 191 H Calculated Osmolality 294 Calcium 8.9 Total Bilirubin 0.19 L AST 13 ALT 14 Alkaline Phosphatase 85 Dtv-D-Pusisrctlec Pept Total Protein 6.3 Albumin 3.2 L Globulin 3.1 Albumin/Globulin Ratio 1.0 Random Vancomycin 04/08/19 04/08/19 05:36 06:08 WBC RBC Hgb Hct MCV MCH MCHC RDW Std Deviation Plt Count MPV Immature Gran % (Auto) Neut % (Auto) Lymph % (Auto) [place] % (Auto) Eos % (Auto) Baso % (Auto) Immature Gran # (Auto) Neut # (Auto) Lymph # (Auto) [place] # (Auto) Eos # (Auto) Baso # (Auto) PTT (Heparin Protocol) Specimen Type ARTERIAL Sample Site R RADIAL pH 7.41 pCO2 48 H pO2 64 HCO3 28.7 H Base Excess 4.9 H Oxyhemoglobin 92.8 L ABG O2 Sat (Calculated) 15.4 ABG O2 Saturation 94.9 L ABG Carboxyhemoglobin 1.40 ABG Methemoglobin 0.8 Danny Test YES A-a O2 Difference 233.0 Total Hemoglobin 11.8 Lactate 2.20 Liter Flow 15.0 Blood Gas Modality VENTIMASK FiO2 % 50.0 Sodium Potassium Chloride Carbon Dioxide Anion Gap BUN Creatinine Estimated GFR/1.73 m2 BUN/Creatinine Ratio Glucose Calculated Osmolality Calcium Total Bilirubin AST ALT Alkaline Phosphatase [id number] Pept 537 H Total Protein Albumin Globulin Albumin/Globulin Ratio Random Vancomycin ssessment: Acute respiratory failure. 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 Right hilar adenopathy. COPD exacerbation. Plan: Continue current treatment and supportive care per admitting and other teams on the case. We titrated supplemental oxygen and BiPAP to patients needs per clinical protocols. Antibiotics including Zosyn and vancomycin. Bronchodilators, mucomyst and IV Solu-Medrol. Bronchoscopy planning. Aspirin and Plavix held. Continue Lovenox. Outpatient PET scan followup. Discuss patients condition and care plan with patients daughter via phone and all questions have been answered. Input was appreciated from Admitting MD and other teams on the case. I discussed the case with the daughter. She mentioned he is not very mobile at base line and has poor functional capacity and may not be interested in pursuing aggressive measure. She will discuss further with him. Evaluation time in minutes: 35 minutes.
--- NOTE | 2019-04-08 20:18 | PROGRESS NOTE ---
DATE: 04/08/2019 SUBJECTIVE: The patient is sitting up in bed eating. He has no complaints at this time. OBJECTIVE: Vital Signs: Temperature 97.6 degrees, blood pressure 151/69, heart rate 68, respirations 17, O2 saturation 90% on the Venturi mask. General: This is a chronically ill- appearing elderly male sitting up in bed in no acute distress. Heart: S1, S2 normal. Regular rate and rhythm. Lungs: Coarse breath sounds bilaterally. Abdomen: Positive bowel sounds. Soft, nontender, nondistended. Extremities: No edema, no cyanosis. Neurologic: The patient is alert and oriented x3. LABORATORY DATA: White blood cell count 17, hemoglobin 10, hematocrit 35, platelets 417,000. BUN 19, creatinine 0.8, potassium 3.9, albumin 3.2. Chest x-ray: Right basilar nodule and infiltrate, endobronchial mass, severe bronchial obstruction. ASSESSMENT AND PLAN: 1. Acute on chronic hypercapnic and hypoxemic respiratory failure. Continue with the current treatment regimen. 2. Pneumonia. Continue with antibiotics, bronchodilator therapy and supplemental oxygen. 3. Endobronchial mass with right hilar adenopathy. Bronchoscopy is planned for early this coming week. 4. History of atrial fibrillation. The patient is currently rate controlled. He is currently on a heparin drip. 5. History of cerebrovascular accident. The patient's Plavix and aspirin are on hold due to the scheduled bronchoscopy next week. 6. Chronic obstructive pulmonary disease exacerbation. Continue on the current treatment regimen. 7. Hypertension. Continue on the current antihypertensive regimen. 8. Disposition. Palliative Care has been consulted for assistance with goals of care. cc: MD ELISHA Hobbs
[2019-04-09] MEDS: HEPARIN 25,000 UNITS/D5W 25,000 UNIT/250 ML IV.SOLN IV SCH ×2 (01:07→23:02)
[2019-04-09] MEDS: DUONEB (A & A) INH SCH ×6 (03:45→23:59)
[2019-04-09] MEDS: ZOSYN 3.375 GM in NS 50 ML IV SCH ×4 (04:52→21:00)
[2019-04-09] MEDS: SOLU-MEDROL IV SCH ×4 (04:52→22:44)
[2019-04-09] MEDS: PROTONIX PO SCH (06:05)
[2019-04-09] MEDS: VANCOMYCIN 2 GM in NS 500 ML IV SCH (06:05)
[2019-04-09 06:43] LABS: BASO# 0.03 X1000 (0.0-0.2); BASO% 0.2 % (0.0-0.8); HEMATOCRIT 35.7 % (42.0-52.0); HEMOGLOBIN 11.3 g/dL (14.0-18.0); IMM GRAN# 0.46 X1000 (0.0-0.04); IMM GRAN% 2.5 % (0.0-0.5); LYMPH% 4.3 % (20.5-51.1); MCH 28.3 PG (27-31); MCHC 31.7 g/dL (33-37); MCV 89.5 FL (81-99); MONO# 1.48 X1000 (0.11-0.59); MPV 10.6 FL (7.4-10.4); NEUT# 15.78 X1000 (1.4-6.5); PLT 435 X1000 (130-400); RBC 3.99 XMIL (4.7-6.1); RDW 15.6 % (11.5-14.5); WBC 18.55 X1000 (4.8-10.8)
[2019-04-09 07:04] LABS: AGAP 10; ALB/GLOB RATIO 1.1; ALBUMIN 3.2 g/dL (3.5-5.0); ALKALINE PHOSPHATASE 84 U/L (32-122); BUN 18 mg/dL (8-22); CALCIUM 8.7 mg/dL (8.8-10.2); CHLORIDE 103 mmol/L (98-107); COSMO 291; CREATININE 0.7 mg/dL (0.7-1.2); ESTIMATED GFR > 60; GLUCOSE 177 mg/dL (70-104); GOT 14 U/L (10-34); GPT 17 U/L (10-44); POTASSIUM 3.7 mmol/L (3.5-5.1); SODIUM 143 mmol/L (136-145); TCO2 30 mmol/L (25-35); TOTAL PROTEIN 6.1 g/dL (6.3-8.3)
--- NOTE | 2019-04-09 07:26 | Diag Imaging Result Doc PS360 ---
EXAM: CHEST-1 VIEW HISTORY: SOB TECHNIQUE: Single view COMPARISON: 04/08/2019 FINDINGS: The lungs are well expanded. The patient is rotated to the right. The appearance of the right lung base is fairly similar to the prior exam with a mass/nodular density in the lower right lung. There is also atelectasis and there may be small underlying infiltrates. The overall appearance is similar to the prior exam. IMPRESSION: Stable chest Electronically signed by Yusuf Love 04/09/2019 7:23 AM
[2019-04-09] MEDS: MUCOMYST 20% INH SCH ×2 (07:48→20:12)
[2019-04-09] MEDS: PEPCID PO SCH ×2 (08:20→21:01)
[2019-04-09] MEDS: NORVASC PO SCH (08:20)
[2019-04-09] MEDS: COLACE PO SCH ×2 (08:20→21:01)
[2019-04-09] MEDS: ZOLOFT PO SCH (08:20)
[2019-04-09] MEDS: THERA M PLUS PO SCH (08:21)
[2019-04-09] MEDS: OSCAL 500 + D PO SCH (08:21)
[2019-04-09] MEDS: SYSTANE EYE DROPS BOTH EYES SCH ×3 (08:21→16:25)
[2019-04-09] MEDS: MIRALAX PO SCH (08:21)
--- NOTE | 2019-04-09 13:15 | PROVIDER PROGRESS NOTE ---
Progress Note Dr. Oates Progress Note/Pulmonary and or critical care We appreciated progress of care, Complications, change in diagnosis, and instructions to patient. Subjective: We note the level of consciousness, bed (chair) position, family presence (if any), level of lethargy, feeling of symptoms, and changes from baseline condition/symptom. Patient is lying in bed with venturi mask on. BiPAP at night. His SaO2 at 90%. His mucosa is relatively dry. Poor baseline functional capacity per his [facility] [facility]. Objective: Vital Signs: We reviewed EMR current values for Pulse rate, Blood pressure, Pulse rate, respiratory rate and Pulse oximetry. Also noted other values and trends if present (e.g. I/O, CVP). T 98.8, OR 94 , RR 20 , BP 119/60 and SaO2 100 on VM 50%. Physical Examination: General: Lying in bed with no acute distress noted. HEENT: Normocephalic. Atraumatic. Trachea midline. Mucosa pink and relatively dry. Chest: No increased work of breathing or accessory muscle use. Symmetrical excursion. Auscultation reveals expiratory wheezing and inspiratory crackles bilaterally. CVS: Regular rate and rhythm with S1 and S2 appreciated. Abdomen: Soft. Nondistended. Obese. Normoactive bowel sounds in all 4 quadrants. Extremities: No pedal edema. No cyanosis. No clubbing. Neuro: A/O x3. Speech fluent. Following commands. Evaluation, face to face and management by Dr. Oates. CHAIM did scribing only. Labs and Radiology: Reviewed available labs and radiology values available at time of EMR review. Laboratory Results 04/09/19 04/09/19 04/09/19 06:06 06:06 06:06 WBC 18.55 H RBC 3.99 L Hgb 11.3 L Hct 35.7 L MCV 89.5 MCH 28.3 MCHC 31.7 L RDW Std Deviation 15.6 H Plt Count 435 H MPV 10.6 H Immature Gran % (Auto) 2.5 H Neut % (Auto) 85.0 H Lymph % (Auto) 4.3 L [place] % (Auto) 8.0 Eos % (Auto) 0.0 Baso % (Auto) 0.2 Immature Gran # (Auto) 0.46 H Neut # (Auto) 15.78 H Lymph # (Auto) 0.80 L [place] # (Auto) 1.48 H Eos # (Auto) 0.00 Baso # (Auto) 0.03 PTT (Heparin Protocol) 113.9 D Sodium 143 Potassium 3.7 Chloride 103 Carbon Dioxide 30 Anion Gap 10 BUN 18 Creatinine 0.7 Estimated GFR/1.73 m2 > 60 BUN/Creatinine Ratio 26 Glucose 177 H Calculated Osmolality 291 Calcium 8.7 L Total Bilirubin 0.20 AST 14 ALT 17 Alkaline Phosphatase 84 Total Protein 6.1 L Albumin 3.2 L Globulin 2.9 Albumin/Globulin Ratio 1.1 Assessment: Acute respiratory failure. 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 Right hilar adenopathy. COPD exacerbation. Plan: Continue current treatment and supportive care per admitting and other teams on the case. We titrated supplemental oxygen and BiPAP to patients needs per clinical protocols. Antibiotics including Zosyn and vancomycin. Bronchodilators, mucomyst and IV Solu-Medrol. Bronchoscopy difficult now because of high oxygen demand. Continue Lovenox. Outpatient PET scan followup. Discuss patients condition and care plan with patients daughter via phone and all questions have been answered. Input was appreciated from Admitting MD and other teams on the case. I discussed the case with the daughter. She mentioned he is not very mobile at base line and has poor functional capacity and may not be interested in pursuing aggressive measure. She will discuss further with him. They are considering possibility of no work-up Evaluation time in minutes: 34 minutes.
[2019-04-09] MEDS: HEPARIN IV PRN (15:01)
--- NOTE | 2019-04-09 16:35 | PROGRESS NOTE ---
DATE: 04/09/2019 SUBJECTIVE: The patient is resting comfortably in bed. He currently is on a Ventimask. He has no complaints. OBJECTIVE: Vital Signs: Temperature 97.5 degrees, blood pressure 127/66, heart rate 58, respirations 18, O2 saturations 95% on Venturi mask. General: This is a chronically ill- appearing, elderly male, lying in bed in no acute distress. Heart: S1, S2 normal, bradycardic. Lungs: Coarse breath sounds. Abdomen: Positive bowel sounds. Soft, nontender, nondistended. Extremities: Trace pedal edema. Neurologic: The patient is very hard of hearing but alert and oriented x3. LABS: White blood cell count 18, hemoglobin 11, hematocrit 35, platelets 435,000. Sodium 143, potassium 3.7, BUN 18, creatinine 0.7, glucose 177. ASSESSMENT AND PLAN: 1. Acute on chronic hypoxemic and hypercapnic respiratory failure. Unchanged, the patient still has high oxygen requirements. 2. Postobstructive pneumonia. Continue on antibiotics, bronchodilator therapy and supplemental oxygen. 3. Endobronchial mass with right hilar adenopathy. Bronchoscopy has been discussed. The patient's family is still trying to decide whether to go forth with this procedure. 4. History of atrial fibrillation. The patient is currently rate controlled and on a heparin drip. 5. Chronic obstructive pulmonary disease exacerbation. Continue on the current treatment regimen. 6. History of cerebrovascular accident. The patient's aspirin and Plavix are on hold due to a potentially scheduled bronchoscopy. 7. Hypertension. Continue on the current antihypertensive regimen. 8. Disposition. The patient and his daughter met with Palliative Care today and the patient is now a DNR level 1. cc: Ryann Jeffries MD
[2019-04-10] MEDS: VANCOMYCIN 2 GM in NS 500 ML IV SCH ×2 (00:09→19:00)
[2019-04-10] MEDS: DUONEB (A & A) INH SCH ×6 (03:29→23:46)
[2019-04-10] MEDS: ZOSYN 3.375 GM in NS 50 ML IV SCH ×4 (03:43→21:41)
[2019-04-10] MEDS: SOLU-MEDROL IV SCH ×4 (04:23→22:00)
[2019-04-10] MEDS ORDERED: HEPARIN 25,000 UNITS/D5W 25,000 UNIT/250 ML IV.SOLN IV SCH ×3 (06:30→17:18)
[2019-04-10 06:47] LABS: BASO# 0.07 X1000 (0.0-0.2); BASO% 0.3 % (0.0-0.8); EOS# 0.02 X1000 (0.0-0.7); EOS% 0.1 % (0.0-10.0); HEMATOCRIT 36.8 % (42.0-52.0); HEMOGLOBIN 11.8 g/dL (14.0-18.0); IMM GRAN# 1.06 X1000 (0.0-0.04); IMM GRAN% 4.7 % (0.0-0.5); LYMPH# 0.68 X1000 (1.2-3.4); MCH 28.4 PG (27-31); MCHC 32.1 g/dL (33-37); MCV 88.5 FL (81-99); MONO# 1.53 X1000 (0.11-0.59); MONO% 6.8 % (1.7-9.3); MPV 10.7 FL (7.4-10.4); NEUT# 19.15 X1000 (1.4-6.5); NEUT% 85.1 % (42.2-75.2); PLT 409 X1000 (130-400); RBC 4.16 XMIL (4.7-6.1); RDW 15.2 % (11.5-14.5); WBC 22.51 X1000 (4.8-10.8)
[2019-04-10 07:17] LABS: AGAP 11; ALB/GLOB RATIO 1.1; ALBUMIN 3.1 g/dL (3.5-5.0); ALKALINE PHOSPHATASE 81 U/L (32-122); BUN 18 mg/dL (8-22); CALCIUM 8.8 mg/dL (8.8-10.2); CHLORIDE 103 mmol/L (98-107); COSMO 293; CREATININE 0.7 mg/dL (0.7-1.2); ESTIMATED GFR > 60; GLUCOSE 211 mg/dL (70-104); GOT 18 U/L (10-34); GPT 27 U/L (10-44); POTASSIUM 3.8 mmol/L (3.5-5.1); SODIUM 143 mmol/L (136-145); TCO2 29 mmol/L (25-35); TOTAL BILIRUBIN 0.22 mg/dL (0.20-1.00); TOTAL PROTEIN 5.9 g/dL (6.3-8.3)
[2019-04-10] MEDS: MUCOMYST 20% INH SCH ×2 (08:03→20:04)
[2019-04-10] MEDS: PEPCID PO SCH (08:08)
[2019-04-10] MEDS: OSCAL 500 + D PO SCH (08:08)
[2019-04-10] MEDS: MIRALAX PO SCH (08:08)
[2019-04-10] MEDS: PROTONIX PO SCH (08:08)
[2019-04-10] MEDS: THERA M PLUS PO SCH (08:08)
[2019-04-10] MEDS: NORVASC PO SCH (08:08)
[2019-04-10] MEDS: COLACE PO SCH ×2 (08:09→21:41)
[2019-04-10] MEDS: ZOLOFT PO SCH (08:09)
[2019-04-10 10:07] LABS: ANISOCYTOSIS 2+; LYMPHS 4 % (21-51); MICROCYTOSIS 1+; MONO 7 % (1-9); SEGS 85 % (42-75)
[2019-04-10 10:08] LABS: HYPOCHROM 2+; LARGE PLATELETS OCCASIONAL
[2019-04-10] MEDS: SYSTANE EYE DROPS BOTH EYES SCH ×3 (12:20→16:11)
--- NOTE | 2019-04-10 14:33 | PROVIDER PROGRESS NOTE ---
Progress Note Dr. Oates Progress Note/Pulmonary and or critical care We appreciated progress of care, Complications, change in diagnosis, and instructions to patient. Subjective: We note the level of consciousness, bed (chair) position, family presence (if any), level of lethargy, feeling of symptoms, and changes from baseline condition/symptom. Patient is lying in bed with venturi mask on, sleeping. BiPAP at night. His mucosa is relatively dry. Objective: Vital Signs: We reviewed EMR current values for Pulse rate, Blood pressure, Pulse rate, respiratory rate and Pulse oximetry. Also noted other values and trends if present (e.g. I/O, CVP). T 98.1, CT 72 , RR 18 , BP 107/55 and SaO2 98 on VM 15 %. Physical Examination: General: Lying in bed with no acute distress noted. HEENT: Normocephalic. Atraumatic. Trachea midline. Mucosa pink and relatively dry. Chest: No increased work of breathing or accessory muscle use. Symmetrical excursion. Auscultation reveals expiratory wheezing and inspiratory crackles bilaterally. CVS: Regular rate and rhythm with S1 and S2 appreciated. Abdomen: Soft. Nondistended. Obese. Normoactive bowel sounds in all 4 quadrants. Extremities: No pedal edema. No cyanosis. No clubbing. Neuro: A/O x3. Speech fluent. Following commands. Evaluation, face to face management by Dr. Oates. CHAIM Carr did scribing only. Labs and Radiology: Reviewed available labs and radiology values available at time of EMR review. Laboratory Results 04/09/19 04/10/19 04/10/19 21:03 06:12 06:12 WBC 22.51 H RBC 4.16 L Hgb 11.8 L Hct 36.8 L MCV 88.5 MCH 28.4 MCHC 32.1 L RDW Std Deviation 15.2 H Plt Count 409 H MPV 10.7 H Immature Gran % (Auto) 4.7 H Neut % (Auto) 85.1 H Lymph % (Auto) 3.0 L [place] % (Auto) 6.8 Eos % (Auto) 0.1 Baso % (Auto) 0.3 Immature Gran # (Auto) 1.06 H Neut # (Auto) 19.15 H Lymph # (Auto) 0.68 L [place] # (Auto) 1.53 H Eos # (Auto) 0.02 Baso # (Auto) 0.07 Segmented Neutrophils 85 H Lymphocytes 4 L Monocytes 7 Metamyelocytes 1.0 Myelocytes 3.0 Hypochromia 2+ Large Platelets OCCASIONAL Anisocytosis 2+ Microcytosis 1+ PTT (Heparin Protocol) 117.4 D Sodium 143 Potassium 3.8 Chloride 103 Carbon Dioxide 29 Anion Gap 11 BUN 18 Creatinine 0.7 Estimated GFR/1.73 m2 > 60 BUN/Creatinine Ratio 26 Glucose 211 H Calculated Osmolality 293 Calcium 8.8 Total Bilirubin 0.22 AST 18 ALT 27 Alkaline Phosphatase 81 Total Protein 5.9 L Albumin 3.1 L Globulin 2.8 Albumin/Globulin Ratio 1.1 04/10/19 06:12 WBC RBC Hgb Hct MCV MCH MCHC RDW Std Deviation Plt Count MPV Immature Gran % (Auto) Neut % (Auto) Lymph % (Auto) [place] % (Auto) Eos % (Auto) Baso % (Auto) Immature Gran # (Auto) Neut # (Auto) Lymph # (Auto) [place] # (Auto) Eos # (Auto) Baso # (Auto) Segmented Neutrophils Lymphocytes Monocytes Metamyelocytes Myelocytes Hypochromia Large Platelets Anisocytosis Microcytosis PTT (Heparin Protocol) 133.8 Sodium Potassium Chloride Carbon Dioxide Anion Gap BUN Creatinine Estimated GFR/1.73 m2 BUN/Creatinine Ratio Glucose Calculated Osmolality Calcium Total Bilirubin AST ALT Alkaline Phosphatase Total Protein Albumin Globulin Albumin/Globulin Ratio Assessment: Acute respiratory failure. 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 Right hilar adenopathy. COPD exacerbation. Plan: Continue current treatment and supportive care per admitting and other teams on the case. We titrated supplemental oxygen and BiPAP to patients needs per clinical protocols. Antibiotics including Zosyn and vancomycin. Bronchodilators, mucomyst and IV Solu-Medrol. Bronchoscopy difficult now because of high oxygen demand. Continue Lovenox. Outpatient PET scan followup. Discuss patients condition and care plan with patients daughter via phone and all questions have been answered. Input was appreciated from Admitting MD and other teams on the case. I discussed the case with the daughter. She mentioned he is not very mobile at base line and has poor functional capacity and may not be interested in pursuing aggressive measure. She will discuss further with him. They are considering possibility of no work-up Evaluation time in minutes: 32 minutes.
[2019-04-10] MEDS: DULCOLAX PR SCH (21:40)
[2019-04-10] MEDS: PROTONIX IV SCH (21:41)
--- NOTE | 2019-04-10 21:44 | PROGRESS NOTE ---
DATE: 04/10/2019 SUBJECTIVE: The patient was noted to be aspirating his breakfast this morning, so he was made NPO except for medications. OBJECTIVE: Vital Signs: Temperature 98.1 degrees, blood pressure 107/55, heart rate 72, respirations 18, O2 saturation 98% on a Venturi mask. Intake 1.51 L. Output 1.6 L. General: This is a chronically ill-appearing elderly male lying in bed in no acute distress. Heart: S1, S2 normal. Lungs: Equal air entry bilaterally. Abdomen: Positive bowel sounds. Soft, nontender, nondistended. Extremities: Trace pedal edema. Neurologic: The patient is hard of hearing but alert and oriented x3. LABS: White blood cell count 22, hemoglobin 11, hematocrit 36, platelets 409,000, sodium 143, potassium 3.8, chloride 103, CO2 29, BUN 18, creatinine 0.7, glucose 211. ASSESSMENT AND PLAN: 1. Acute on chronic hypoxemic and hypercapnic respiratory failure. The patient continues to have high oxygen requirements. 2. Postobstructive pneumonia. Continue with the current treatment regimen. 3. Dysphagia. The patient states that he has difficulty swallowing food and he appeared to aspirate this morning. We will make the patient NPO. We will order a modified barium swallow to be done on Friday. 4. Endobronchial mass, with right hilar adenopathy. Aware. The patient and the family are trying to decide whether they want to undergo a bronchoscopy. 5. History of atrial fibrillation. Aware. Continue on the heparin drip. 6. Chronic obstructive pulmonary disease exacerbation. Continue with the current treatment regimen. 7. History of cerebrovascular accident. Aware. The patient's dual platelet therapy is on hold. The patient is currently on a heparin drip. 8. Hypertension. Stable. 9. Disposition. The patient is a Do Not Resuscitate level 1. The patient and daughter will meet with palliative care again to further discuss goals of care and whether they want invasive treatments. cc: Ryann Jeffries MD MTDD
[2019-04-11] MEDS: ZOSYN 3.375 GM in NS 50 ML IV SCH (03:27)
[2019-04-11] MEDS: DUONEB (A & A) INH SCH ×6 (04:07→23:04)
[2019-04-11] MEDS: SOLU-MEDROL IV SCH ×3 (06:19→21:35)
[2019-04-11 06:27] LABS: BASO# 0.12 X1000 (0.0-0.2); BASO% 0.5 % (0.0-0.8); HEMATOCRIT 36.1 % (42.0-52.0); HEMOGLOBIN 11.3 g/dL (14.0-18.0); IMM GRAN# 1.36 X1000 (0.0-0.04); IMM GRAN% 5.5 % (0.0-0.5); LYMPH# 1.87 X1000 (1.2-3.4); LYMPH% 7.5 % (20.5-51.1); MCH 27.9 PG (27-31); MCHC 31.3 g/dL (33-37); MCV 89.1 FL (81-99); MPV 10.5 FL (7.4-10.4); NEUT# 20.47 X1000 (1.4-6.5); NEUT% 82.5 % (42.2-75.2); PLT 433 X1000 (130-400); RBC 4.05 XMIL (4.7-6.1); RDW 15.7 % (11.5-14.5); WBC 24.82 X1000 (4.8-10.8)
[2019-04-11 06:55] LABS: AGAP 9; ALB/GLOB RATIO 1.3; ALBUMIN 3.2 g/dL (3.5-5.0); ALKALINE PHOSPHATASE 78 U/L (32-122); BUN 17 mg/dL (8-22); CALCIUM 8.7 mg/dL (8.8-10.2); CHLORIDE 101 mmol/L (98-107); COSMO 291; CREATININE 0.6 mg/dL (0.7-1.2); ESTIMATED GFR > 60; GLUCOSE 210 mg/dL (70-104); GOT 21 U/L (10-34); GPT 42 U/L (10-44); POTASSIUM 3.3 mmol/L (3.5-5.1); SODIUM 142 mmol/L (136-145); TCO2 32 mmol/L (25-35); TOTAL BILIRUBIN 0.22 mg/dL (0.20-1.00); TOTAL PROTEIN 5.7 g/dL (6.3-8.3)
[2019-04-11] MEDS: MERREM 1 GM in NS 50 ML IV SCH ×2 (07:42→18:30)
[2019-04-11] MEDS ORDERED: POTASSIUM CHLORIDE 60 MEQ in NS 500 ML IV ONE (08:00)
[2019-04-11] MEDS: MUCOMYST 20% INH SCH ×2 (08:05→19:37)
--- NOTE | 2019-04-11 08:20 | Diag Imaging Result Doc PS360 ---
EXAM: CHEST-1 VIEW 04/11/2019 HISTORY: lung mass/pneumonia TECHNIQUE: AP portable upright at [id number] COMMENT: There is alveolar opacity in the right lower lobe which appears slightly worse than on 04/09/2019. There are minimal platelike atelectatic changes in the left base. IMPRESSION: Slight worsening of pneumonia right lower lobe. Minimal atelectasis left lower lobe. Electronically signed by Steve Cassidy 04/11/2019 8:17 AM
[2019-04-11] MEDS: MIRALAX PO SCH (10:44)
[2019-04-11] MEDS: DULCOLAX PR SCH ×2 (10:44→21:35)
[2019-04-11] MEDS: COLACE PO SCH ×2 (10:44→21:35)
[2019-04-11] MEDS: NORVASC PO SCH (10:45)
[2019-04-11] MEDS: THERA M PLUS PO SCH (10:45)
[2019-04-11] MEDS: ZOLOFT PO SCH (10:45)
[2019-04-11] MEDS: SYSTANE EYE DROPS BOTH EYES SCH ×3 (10:45→17:15)
[2019-04-11] MEDS: PROTONIX IV SCH ×2 (10:46→21:36)
[2019-04-11] MEDS: SODIUM CHLORIDE 0.9% INJ SCH ×2 (10:46→21:36)
[2019-04-11] MEDS: OSCAL 500 + D PO SCH (10:46)
[2019-04-11] MEDS ORDERED: HEPARIN 25,000 UNITS/D5W 25,000 UNIT/250 ML IV.SOLN IV SCH (14:55)
[2019-04-11] MEDS: CILOXAN OPHTH SOLN BOTH EYES SCH ×3 (15:12→20:28)
[2019-04-11] MEDS: ZYVOX 600 MG/D5W 600 MG/300 ML IVPB IV SCH (15:30)
--- NOTE | 2019-04-11 19:10 | PROVIDER PROGRESS NOTE ---
Progress Note Progress Note Dr. Oates Progress Note/Pulmonary and or critical care We appreciated progress of care, Complications, change in diagnosis, and instructions to patient. Subjective: We note the level of consciousness, bed (chair) position, family presence (if any), level of lethargy, feeling of symptoms, and changes from baseline condition/symptom. Patient is lying in bed with venturi mask on, sleeping. BiPAP at night. His mucosa is relatively dry. Objective: Vital Signs: We reviewed EMR current values for Pulse rate, Blood pressure, Pulse rate, respiratory rate and Pulse oximetry. Also noted other values and trends if present (e.g. I/O, CVP). T 98.8 , DC 88 , RR 20 , BP 124/88 , and SaO2 98 on VM 15 %. Physical Examination: General: Lying in bed with no acute distress noted. HEENT: Normocephalic. Atraumatic. Trachea midline. Mucosa pink and relatively dry. Chest: No increased work of breathing or accessory muscle use. Symmetrical excursion. Auscultation reveals expiratory wheezing and inspiratory crackles bilaterally. CVS: Regular rate and rhythm with S1 and S2 appreciated. Abdomen: Soft. Nondistended. Obese. Normoactive bowel sounds in all 4 quadrants. Extremities: No pedal edema. No cyanosis. No clubbing. Neuro: A/O x3. Speech fluent. Following commands. Evaluation, face to face management by Dr. Oates. CHAIM Carr did scribing only. Labs and Radiology: Reviewed available labs and radiology values available at time of EMR review. Laboratory Results 04/10/19 04/11/19 04/11/19 23:13 05:30 05:30 WBC 24.82 H RBC 4.05 L Hgb 11.3 L Hct 36.1 L MCV 89.1 MCH 27.9 MCHC 31.3 L RDW Std Deviation 15.7 H Plt Count 433 H MPV 10.5 H Immature Gran % (Auto) 5.5 H Neut % (Auto) 82.5 H Lymph % (Auto) 7.5 L [place] % (Auto) 4.0 Eos % (Auto) 0.0 Baso % (Auto) 0.5 Immature Gran # (Auto) 1.36 H Neut # (Auto) 20.47 H Lymph # (Auto) 1.87 [place] # (Auto) 1.00 H Eos # (Auto) 0.00 Baso # (Auto) 0.12 PTT (Heparin Protocol) 99.5 D Sodium 142 Potassium 3.3 L Chloride 101 Carbon Dioxide 32 Anion Gap 9 BUN 17 Creatinine 0.6 L Estimated GFR/1.73 m2 > 60 BUN/Creatinine Ratio 28 Glucose 210 H Calculated Osmolality 291 Calcium 8.7 L Total Bilirubin 0.22 AST 21 ALT 42 Alkaline Phosphatase 78 Total Protein 5.7 L Albumin 3.2 L Globulin 2.5 Albumin/Globulin Ratio 1.3 04/11/19 04/11/19 05:30 11:59 WBC RBC Hgb Hct MCV MCH MCHC RDW Std Deviation Plt Count MPV Immature Gran % (Auto) Neut % (Auto) Lymph % (Auto) [place] % (Auto) Eos % (Auto) Baso % (Auto) Immature Gran # (Auto) Neut # (Auto) Lymph # (Auto) [place] # (Auto) Eos # (Auto) Baso # (Auto) PTT (Heparin Protocol) 112.0 59.3 D Sodium Potassium Chloride Carbon Dioxide Anion Gap BUN Creatinine Estimated GFR/1.73 m2 BUN/Creatinine Ratio Glucose Calculated Osmolality Calcium Total Bilirubin AST ALT Alkaline Phosphatase Total Protein Albumin Globulin Albumin/Globulin Ratio Assessment: Acute respiratory failure. 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 Right hilar adenopathy. COPD exacerbation. Plan: Continue current treatment and supportive care per admitting and other teams on the case. We titrated supplemental oxygen and BiPAP to patients needs per clinical protocols. Antibiotics including Zosyn and vancomycin. Bronchodilators, mucomyst and IV Solu-Medrol. Bronchoscopy difficult now because of high oxygen demand. Continue Lovenox. Outpatient PET scan followup. Discuss patients condition and care plan with patients daughter via phone and all questions have been answered. Input was appreciated from Admitting MD and other teams on the case. I discussed the case with the daughter. She mentioned he is not very mobile at base line and has poor functional capacity and may not be interested in pursuing aggressive measure. She will discuss further with him. They are considering possibility of no work-up
--- NOTE | 2019-04-11 20:14 | PROGRESS NOTE ---
DATE: 04/11/2019 SUBJECTIVE: The patient is sitting up in bed resting. He has no complaints. OBJECTIVE: Vital Signs: Temperature 98.1 degrees, blood pressure 146/77, heart rate 77, respirations 18, O2 saturation 99% on a Venturi mask, intake 250, output 2.1 L. General: This is a chronically ill-appearing elderly male, on a Venti mask. Heart: S1, S2 normal. Regular rate and rhythm. Lungs: Coarse breath sounds bilaterally with crackles. Abdomen: Positive bowel sounds. Soft, nontender, nondistended. Extremities: No edema. No cyanosis. Neurologic: The patient is alert and oriented x3. LABS: White blood cell count 24, hemoglobin 11, hematocrit 36, platelets 433,000. Sodium 142, potassium 3.3, BUN 17, creatinine 0.6, glucose 210. IMAGING PROCEDURE: Chest x-ray shows slight worsening of the pneumonia in the right lower lobe. ASSESSMENT AND PLAN: 1. Acute on chronic hypoxemic and hypercapnic respiratory failure. Unchanged. Continue to treat the underlying pneumonia. 2. Postobstructive pneumonia. This appears to be worse today. We will change to meropenem and Zyvox. 3. Dysphagia. The patient is currently NPO. A modified barium swallow is scheduled to be done tomorrow. 4. Endobronchial mass, with right hilar adenopathy. Aware. The patient and his family are trying to decide whether they were going to pursue a bronchoscopy. Pulmonary is following. 5. Atrial fibrillation. The patient is rate controlled. 6. Chronic obstructive pulmonary disease exacerbation. Continue on the current treatment regimen. 7. History of cerebrovascular accident. Aware. 8. Hypertension. Stable. 9. Disposition. The patient is currently a DNR level 1. Palliative Care will be meeting with the patient's family to discuss goals of care. cc: Ryann Jeffries MD MTDD
[2019-04-12] MEDS: MERREM 1 GM in NS 50 ML IV SCH ×3 (00:49→16:29)
[2019-04-12] MEDS: CILOXAN OPHTH SOLN BOTH EYES SCH ×6 (01:49→21:53)
[2019-04-12] MEDS: ZYVOX 600 MG/D5W 600 MG/300 ML IVPB IV SCH ×2 (01:49→12:35)
[2019-04-12] MEDS: DUONEB (A & A) INH SCH ×6 (03:30→22:29)
[2019-04-12 05:10] LABS: HEMATOCRIT 40.9 % (42.0-52.0); HEMOGLOBIN 12.6 g/dL (14.0-18.0); MCHC 30.8 g/dL (33-37); MPV 10.8 FL (7.4-10.4); RBC 4.35 XMIL (4.7-6.1); RDW 16.9 % (11.5-14.5); WBC 22.39 X1000 (4.8-10.8)
[2019-04-12] MEDS: SOLU-MEDROL IV SCH ×3 (06:06→21:56)
[2019-04-12 06:31] LABS: ALLEN TEST YES; BE 8.9 mmoll (-3.0-3.0); BLOOD TYPE ARTERIAL; HCO3-(ACT) 31.8 mmoll (20.0-26.0); METHB 1.1 % (0.0-1.5); O2(CT) 16.5 mL/dL (15.0-23.0); O2HB 94.5 % (95.0-99.0); PO2(98.6) 74 mmHg (60-100); SAMPLE BLOOD; SAO2 96.9 % (95.0-100.0); THB 12.4 g/dL (11.5-17.4); pH(98.6) 7.44 (7.35-7.45)
[2019-04-12 06:34] LABS: MODALITY VENTIMASK; PCO2(98.6) 51 mmHg (35-45)
[2019-04-12] MEDS ORDERED: HEPARIN 25,000 UNITS/D5W 25,000 UNIT/250 ML IV.SOLN IV SCH ×2 (07:14→13:12)
[2019-04-12] MEDS: MUCOMYST 20% INH SCH ×2 (08:09→19:25)
[2019-04-12] MEDS: OSCAL 500 + D PO SCH (09:14)
[2019-04-12] MEDS: COLACE PO SCH ×2 (09:14→21:55)
[2019-04-12] MEDS: DULCOLAX PR SCH ×2 (09:14→21:55)
[2019-04-12] MEDS: PROTONIX IV SCH ×2 (09:15→21:55)
[2019-04-12] MEDS: NORVASC PO SCH (09:15)
[2019-04-12] MEDS: MIRALAX PO SCH (09:15)
[2019-04-12] MEDS: THERA M PLUS PO SCH (09:15)
[2019-04-12] MEDS: SYSTANE EYE DROPS BOTH EYES SCH ×3 (09:15→21:54)
[2019-04-12 09:20] LABS: AGAP 14; BUN 17 mg/dL (8-22); CALCIUM 8.9 mg/dL (8.8-10.2); CHLORIDE 102 mmol/L (98-107); COSMO 287; CREATININE 0.7 mg/dL (0.7-1.2); ESTIMATED GFR > 60; GLUCOSE 113 mg/dL (70-104); POTASSIUM 5.4 mmol/L (3.5-5.1); SODIUM 143 mmol/L (136-145); TCO2 27 mmol/L (25-35)
--- NOTE | 2019-04-12 11:03 | Diag Imaging Result Doc PS360 ---
BA SWALLOW W/VIDEO SPEECH THER - 04/12/2019 INDICATION: aspiration TECHNIQUE: Total fluoroscopy time was 18 seconds. 63 images were obtained. COMPARISON: Modified barium swallow from 05/12/2018 FINDINGS: The patient drank thin liquid and pureed solid consistencies successfully. There is no aspiration or penetration. There is grossly normal action by the pharynx. The thoracic esophagus was evaluated and appeared normal. There is prompt clearance. IMPRESSION: Negative exam. Electronically signed by Patrice Bradley 04/12/2019 11:00 AM
--- NOTE | 2019-04-12 16:58 | PROVIDER PROGRESS NOTE ---
Progress Note Dr. Oates Progress Note/Pulmonary and or critical care We appreciated progress of care, Complications, change in diagnosis, and instructions to patient. Subjective: We note the level of consciousness, bed (chair) position, family presence (if any), level of lethargy, feeling of symptoms, and changes from baseline condition/symptom. Patient is lying in bed with VM 50% on. He is calm and cooperative. He still has productive cough. He apparently took medicines by mouth this morning and got choked. Staff is transferring him for swallow evaluation at this time. Objective: Vital Signs: We reviewed EMR current values for Pulse rate, Blood pressure, Pulse rate, respiratory rate and Pulse oximetry. Also noted other values and trends if present (e.g. I/O, CVP). T 98.6, HI 63, RR 20, BP 168/59 and SaO2 94% on VM 50%. Physical Examination: General: Lying in bed with no acute distress noted. HEENT: Normocephalic. Atraumatic. Trachea midline. Mucosa pink and relatively dry. Chest: Even and unlabored. No increased work of breathing or accessory muscle use. Symmetrical excursion. Auscultation reveals inspiratory crackles bilaterally. CVS: Regular rate and rhythm with S1 and S2 appreciated. Abdomen: Soft. Nondistended. Obese. Normoactive bowel sounds in all 4 quadrants. Extremities: No pedal edema. No cyanosis. No clubbing. Neuro: A/O x3. Speech fluent. Following commands. Labs and Radiology: Reviewed available labs and radiology values available at time of EMR review. Laboratory Results 04/11/19 04/12/19 04/12/19 21:04 04:49 04:49 WBC 22.39 H RBC 4.35 L Hgb 12.6 L Hct 40.9 L MCV 94.0 MCH 29.0 MCHC 30.8 L RDW Std Deviation 16.9 H Plt Count 352 MPV 10.8 H PTT (Heparin Protocol) 101.5 D 57.4 D Specimen Type Sample Site pH pCO2 pO2 HCO3 Base Excess Oxyhemoglobin ABG O2 Sat (Calculated) ABG O2 Saturation ABG Carboxyhemoglobin ABG Methemoglobin Danny Test A-a O2 Difference Total Hemoglobin Lactate Blood Gas Modality FiO2 % Sodium Potassium Chloride Carbon Dioxide Anion Gap BUN Creatinine Estimated GFR/1.73 m2 BUN/Creatinine Ratio Glucose Calculated Osmolality Calcium Magnesium 04/12/19 04/12/19 04/12/19 06:15 07:49 07:49 WBC RBC Hgb Hct MCV MCH MCHC RDW Std Deviation Plt Count MPV PTT (Heparin Protocol) Specimen Type ARTERIAL Sample Site R RADIAL pH 7.44 pCO2 51 H* pO2 74 HCO3 31.8 H Base Excess 8.9 H Oxyhemoglobin 94.5 L ABG O2 Sat (Calculated) 16.5 ABG O2 Saturation 96.9 ABG Carboxyhemoglobin 1.40 ABG Methemoglobin 1.1 Danny Test YES A-a O2 Difference 219.0 Total Hemoglobin 12.4 Lactate 1.30 Blood Gas Modality VENTIMASK FiO2 % 50.0 Sodium 143 Potassium 5.4 H D Chloride 102 Carbon Dioxide 27 Anion Gap 14 BUN 17 Creatinine 0.7 Estimated GFR/1.73 m2 > 60 BUN/Creatinine Ratio 24 Glucose 113 H Calculated Osmolality 287 Calcium 8.9 Magnesium 2.2 04/12/19 11:20 WBC RBC Hgb Hct MCV MCH MCHC RDW Std Deviation Plt Count MPV PTT (Heparin Protocol) 64.7 Specimen Type Sample Site pH pCO2 pO2 HCO3 Base Excess Oxyhemoglobin ABG O2 Sat (Calculated) ABG O2 Saturation ABG Carboxyhemoglobin ABG Methemoglobin Danny Test A-a O2 Difference Total Hemoglobin Lactate Blood Gas Modality FiO2 % Sodium Potassium Chloride Carbon Dioxide Anion Gap BUN Creatinine Estimated GFR/1.73 m2 BUN/Creatinine Ratio Glucose Calculated Osmolality Calcium Magnesium Assessment: DNR 1 Acute respiratory failure. 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 Right hilar adenopathy. COPD exacerbation. Dysphagia with negative swallow evaluation. Hyperkalemia. Plan: Continue current treatment and supportive care per admitting and other teams on the case. Supplemental oxygen and BiPAP as needed per clinical protocols. Antibiotics including Meropenem and Linezolid. Bronchodilators, mucomyst and IV Solu-Medrol. Swallow evaluation. Bronchoscopy difficult now secondary to high oxygen demand. Outpatient PET scan followup. Discuss patients condition and care plan with patients daughter via phone and all questions have been answered. Patients daughter mentioned that they may not be interested in pursuing aggressive measure. They are considering possibility of no work-up. Input was appreciated from Admitting MD and other teams on the case.
--- NOTE | 2019-04-12 19:13 | PROGRESS NOTE ---
DATE: 04/12/2019 SUBJECTIVE: The patient was n.p.o. over the weekend. Attempts were made to give the patient oral medications this morning; however, he started choking when trying to swallow the pills. He had a modified barium swallow done this morning that was noted to be negative. OBJECTIVE: Vital Signs: Temperature 98.6 degrees, blood pressure 157/81, heart rate 83, respirations 22, O2 saturations 97% on a Venturi mask. Intake 413, output 2.1 L. General: This is a chronically ill-appearing elderly male lying in bed in no acute distress. Heart: S1, S2 normal. Regular rate and rhythm. Lungs: Diminished breath sounds in the right lung field. No wheezing or rales. Abdomen: Positive bowel sounds. Soft, nontender, nondistended. Extremities: No edema, no cyanosis. Neurologic: The patient is alert and oriented x3. LABORATORY DATA: White blood cell count 22, hemoglobin 12, hematocrit 40, platelets 352,000, sodium 143, potassium 5.4, chloride 102, CO2 27, BUN 17, creatinine 0.7, glucose 113, magnesium 2.2. IMAGING: Modified barium swallow normal. ASSESSMENT AND PLAN: 1. Acute on chronic hypoxemic and hypercapnic respiratory failure. The patient still has high oxygen requirements. Continue to treat the underlying pneumonia. 2. Postobstructive pneumonia. The patient was switched to meropenem and zyvox yesterday. We will continue with this regimen. 3. Endobronchial mass with right hilar adenopathy. Aware. The patient and his family are trying to decide whether they are interested in pursuing bronchoscopy. I made a call to the patient's daughter and left a message for a call back. Pulmonary is also trying to reach out to the family. 4. Dysphagia. The patient's modified barium swallow was noted to be normal. We will try the patient on a pureed diet with nectar-thickened liquids and see how he does. I discussed the possibility of esophageal dilation with Gastroenterology, and they are hesitant to move forward with that given the patient's high oxygen requirements at this time. 5. Atrial fibrillation. The patient is rate controlled. He remains on a heparin drip pending a decision regarding bronchoscopy. 6. History of cerebrovascular accident. The patient's dual platelet therapy is on hold. 7. Chronic obstructive pulmonary disease exacerbation. Continue to wean the steroid therapy. 8. Constipation. We will continue with laxative therapy. 9. Hypertension. Stable. DISPOSITION: The patient is currently a DNR level 1. Palliative care is following. I placed a call to the patient's daughter, Marquita Diaz, and left a message for a callback to discuss the patient's medical treatment. cc: Ryann Jeffries MD MTDD
[2019-04-12] MEDS: HEPARIN 25,000 UNITS/D5W 25,000 UNIT/250 ML IV.SOLN IV SCH (21:16)
[2019-04-13] MEDS: MERREM 1 GM in NS 50 ML IV SCH ×3 (00:57→16:18)
[2019-04-13] MEDS: ZYVOX 600 MG/D5W 600 MG/300 ML IVPB IV SCH ×2 (00:57→11:32)
[2019-04-13] MEDS: CILOXAN OPHTH SOLN BOTH EYES SCH ×4 (00:57→11:32)
[2019-04-13] MEDS: HEPARIN 25,000 UNITS/D5W 25,000 UNIT/250 ML IV.SOLN IV SCH (03:21)
[2019-04-13] MEDS: DUONEB (A & A) INH SCH ×6 (03:28→22:34)
[2019-04-13] MEDS ORDERED: HEPARIN 25,000 UNITS/D5W 25,000 UNIT/250 ML IV.SOLN IV SCH ×3 (04:31→18:40)
[2019-04-13] MEDS: SOLU-MEDROL IV SCH ×2 (05:35→14:16)
[2019-04-13 05:36] LABS: ALLEN TEST YES; BE 7.6 mmoll (-3.0-3.0); BLOOD TYPE ARTERIAL; HCO3-(ACT) 30.8 mmoll (20.0-26.0); METHB 0.8 % (0.0-1.5); O2(CT) 20.8 mL/dL (15.0-23.0); O2HB 94.9 % (95.0-99.0); PO2(98.6) 78 mmHg (60-100); SAMPLE BLOOD; SAO2 97.1 % (95.0-100.0); THB 15.6 g/dL (11.5-17.4); pH(98.6) 7.41 (7.35-7.45)
[2019-04-13 05:44] LABS: MODALITY VENTIMASK; PCO2(98.6) 54 mmHg (35-45)
[2019-04-13] MEDS: MUCOMYST 20% INH SCH ×2 (07:57→19:30)
[2019-04-13 08:48] LABS: HEMATOCRIT 41.5 % (42.0-52.0); HEMOGLOBIN 13.1 g/dL (14.0-18.0); MCH 29.2 PG (27-31); MCHC 31.6 g/dL (33-37); MCV 92.6 FL (81-99); MPV 10.8 FL (7.4-10.4); RBC 4.48 XMIL (4.7-6.1); RDW 16.7 % (11.5-14.5); WBC 20.91 X1000 (4.8-10.8)
[2019-04-13] MEDS: MIRALAX PO SCH (09:06)
[2019-04-13] MEDS: COLACE PO SCH ×2 (09:08→21:32)
[2019-04-13] MEDS: NORVASC PO SCH (09:08)
[2019-04-13] MEDS: OSCAL 500 + D PO SCH (09:08)
[2019-04-13] MEDS: THERA M PLUS PO SCH (09:08)
[2019-04-13] MEDS: PROTONIX IV SCH ×2 (09:09→21:31)
[2019-04-13] MEDS: DULCOLAX PR SCH ×2 (09:10→21:32)
--- NOTE | 2019-04-13 09:10 | Diag Imaging Result Doc PS360 ---
FLAT/UPRIGHT ABD/1 VIEW CHEST - 04/13/2019 INDICATION: pneumonia/constipation TECHNIQUE: COMPARISON: 04/11/2019 FINDINGS: Lung volumes are severely low. There is persistent consolidation in the right lung base compatible with pneumonia. There is some bronchovascular crowding in the left lung base. No pneumothorax or significant pleural effusion. Heart size is borderline enlarged. The barium from yesterday is now in the colon. There is a nonobstructive bowel gas pattern. No free air or abnormal calcifications. IMPRESSION: 1. No acute process in the abdomen. 2. Persistent right basilar infiltrate compatible with pneumonia. Severely low lung volumes. Electronically signed by Patrice Bradley 04/13/2019 9:08 AM
[2019-04-13] MEDS: SYSTANE EYE DROPS BOTH EYES SCH ×3 (09:18→17:36)
[2019-04-13 09:23] LABS: AGAP 12; BUN 17 mg/dL (8-22); CALCIUM 8.9 mg/dL (8.8-10.2); CHLORIDE 100 mmol/L (98-107); COSMO 280; CREATININE 0.6 mg/dL (0.7-1.2); ESTIMATED GFR > 60; GLUCOSE 141 mg/dL (70-104); POTASSIUM 4.5 mmol/L (3.5-5.1); SODIUM 138 mmol/L (136-145); TCO2 26 mmol/L (25-35)
--- NOTE | 2019-04-13 18:01 | PROVIDER PROGRESS NOTE ---
Progress Note Dr. Oates Progress Note/Pulmonary and or critical care Subjective: Patient is lying in bed on VM 50% with no acute distress noted. He is calm and cooperative. He states he is fine. Swallow evaluation yesterday was negative. Objective: Vital Signs: T 98.1, VT 59, RR 16, BP 175/64 and SaO2 99% on VM 50%. Physical Examination: General: Lying in bed with no acute distress noted. HEENT: Normocephalic. Atraumatic. Trachea midline. Mucosa pink and relatively dry. Chest: Even and unlabored. No increased work of breathing or accessory muscle use. Symmetrical excursion. Auscultation reveals inspiratory crackles bilaterally. CVS: Regular rate and rhythm with S1 and S2 appreciated. Abdomen: Soft. Nondistended. Obese. Normoactive bowel sounds in all 4 quadrants. Extremities: No pedal edema. No cyanosis. No clubbing. Neuro: A/O x3. Speech slow, but fluent. Following commands. Labs and Radiology: Laboratory Results 04/12/19 04/13/19 04/13/19 19:17 03:16 05:26 WBC RBC Hgb Hct MCV MCH MCHC RDW Std Deviation Plt Count MPV PTT (Heparin Protocol) 180.0 H* D 146.0 Specimen Type ARTERIAL Sample Site R RADIAL pH 7.41 pCO2 54 H* pO2 78 HCO3 30.8 H Base Excess 7.6 H Oxyhemoglobin 94.9 L ABG O2 Sat (Calculated) 20.8 ABG O2 Saturation 97.1 ABG Carboxyhemoglobin 1.40 ABG Methemoglobin 0.8 Danny Test YES A-a O2 Difference 211.0 Total Hemoglobin 15.6 Lactate 1.40 Liter Flow 15.0 Blood Gas Modality VENTIMASK FiO2 % 50.0 Sodium Potassium Chloride Carbon Dioxide Anion Gap BUN Creatinine Estimated GFR/1.73 m2 BUN/Creatinine Ratio Glucose Calculated Osmolality Calcium 04/13/19 04/13/19 04/13/19 08:04 08:04 11:15 WBC 20.91 H RBC 4.48 L Hgb 13.1 L Hct 41.5 L MCV 92.6 MCH 29.2 MCHC 31.6 L RDW Std Deviation 16.7 H Plt Count 313 MPV 10.8 H PTT (Heparin Protocol) 100.7 D Specimen Type Sample Site pH pCO2 pO2 HCO3 Base Excess Oxyhemoglobin ABG O2 Sat (Calculated) ABG O2 Saturation ABG Carboxyhemoglobin ABG Methemoglobin Danny Test A-a O2 Difference Total Hemoglobin Lactate Liter Flow Blood Gas Modality FiO2 % Sodium 138 Potassium 4.5 D Chloride 100 Carbon Dioxide 26 Anion Gap 12 BUN 17 Creatinine 0.6 L Estimated GFR/1.73 m2 > 60 BUN/Creatinine Ratio 28 Glucose 141 H Calculated Osmolality 280 Calcium 8.9 Assessment: DNR 1 Acute respiratory failure. 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 Right hilar adenopathy. COPD exacerbation. Dysphagia with negative swallow evaluation. Hyperkalemia. Plan: Continue current treatment and supportive care per admitting and other teams on the case. Supplemental oxygen and BiPAP as needed per clinical protocols. Antibiotics including Meropenem and Linezolid. Bronchodilators, mucomyst and IV Solu-Medrol (tapering down). Bronchoscopy difficult secondary to high oxygen demand, but manageable. Outpatient PET scan followup. Discuss patients condition and care plan with patients daughter via phone. We are planning bronchoscopy in next two days.
[2019-04-13 18:11] LABS: INR 0.9; PROTIME 12.3 Seconds (11.0-16.0)
[2019-04-13 18:13] LABS: PTT 58.7 Seconds (22.3-41.8)
[2019-04-14] MEDS: ZYVOX 600 MG/D5W 600 MG/300 ML IVPB IV SCH ×2 (00:29→22:20)
[2019-04-14] MEDS: MERREM 1 GM in NS 50 ML IV SCH ×3 (00:29→17:25)
--- NOTE | 2019-04-14 00:33 | PROGRESS NOTE ---
DATE: 04/13/2019 INTERVAL HISTORY: No acute events overnight. He has been on 50% Venturi mask. He denies any new complaints. He states he was able to work with Physical Therapy. We discussed about lung mass. I answered all of his question. He is still pending evaluation for bronchoscopy. OBJECTIVE: Temperature of 98.4 degrees, pulse 70, respiratory rate 18, blood pressure 124/73, saturating 94% on Venturi mask. On physical examination he has poor inspiratory effort. He has inspiratory crackles, especially in the right infrascapular region. Mild end-expiratory wheezes. S1, S2 normal. Systolic murmur affecting left 2nd intercostal space. No rub or gallop. Abdomen is soft, nontender. Bilateral mild lower extremity edema. He is alert and oriented x3. He has urine catheter. LABORATORY DATA: He does have leukocytosis of 20,000, hemoglobin of 13.1. Chronic hypercarbic respiratory failure. BUN of 17, creatinine 0.6. No positive microbiological data. DIAGNOSTIC DATA: Abdominal x-ray does not have any acute abnormality. He continues to have a right lower lobe infiltrate. ASSESSMENT AND PLAN: 1. [id number] hypoxic hypercapnic respiratory failure. Continue Venturi mask for oxygenation. 2. Postobstructive right lower lobe pneumonia with acute chronic obstructive pulmonary disease exacerbation and endobronchial mass with right hilar adenopathy. Considering his leukocytosis, his antibiotics have been changed to intravenous meropenem and linezolid. He has shown improvement in the WBC count. I will continue him on inhaled bronchodilators, current dose of intravenous steroids. Pulmonology team is planning a bronchoscopy for biopsy of the mass. 3. Dysphagia. His modified barium swallow was noted to be normal. I will continue him on current pureed diet. 4. Atrial fibrillation, currently rate controlled. He has been started on intravenous heparin drip and his dual antiplatelets have been held. 5. He does have prior history of cerebrovascular accident. 6. His constipation has resolved. 7. Disposition: Awaiting bronchoscopy. Plan of care discussed with the patient. His questions have been answered. cc: Dylon Carranza MD
[2019-04-14] MEDS: SOLU-MEDROL IV SCH ×2 (01:15→15:00)
[2019-04-14] MEDS: DUONEB (A & A) INH SCH ×6 (03:43→22:42)
[2019-04-14 06:01] LABS: ALLEN TEST YES; BE 9.4 mmoll (-3.0-3.0); BLOOD TYPE ARTERIAL; HCO3-(ACT) 32.2 mmoll (20.0-26.0); PO2(98.6) 72 mmHg (60-100); SAMPLE BLOOD; pH(98.6) 7.41 (7.35-7.45)
[2019-04-14 06:05] LABS: PCO2(98.6) 57 mmHg (35-45)
[2019-04-14 06:06] LABS: MODALITY VENTIMASK
[2019-04-14] MEDS: MUCOMYST 20% INH SCH ×2 (07:48→19:25)
[2019-04-14 08:39] LABS: HEMATOCRIT 39.8 % (42.0-52.0); HEMOGLOBIN 12.6 g/dL (14.0-18.0); MCH 28.6 PG (27-31); MCHC 31.7 g/dL (33-37); MCV 90.5 FL (81-99); MPV 10.8 FL (7.4-10.4); RBC 4.4 XMIL (4.7-6.1); RDW 16.4 % (11.5-14.5); WBC 21.94 X1000 (4.8-10.8)
[2019-04-14] MEDS: PROTONIX IV SCH ×2 (09:01→22:21)
[2019-04-14 09:02] LABS: BUN 22 mg/dL (8-22); CALCIUM 9.1 mg/dL (8.8-10.2); COSMO 276; CREATININE 0.7 mg/dL (0.7-1.2); ESTIMATED GFR > 60; GLUCOSE 114 mg/dL (70-104)
[2019-04-14] MEDS: SYSTANE EYE DROPS BOTH EYES SCH ×3 (10:02→18:47)
[2019-04-14] MEDS ORDERED: NS 250 ML ONE ×2 (11:24→15:03)
[2019-04-14] MEDS ORDERED: XYLOCAINE-MPF 2% ONE (11:27)
[2019-04-14] MEDS ORDERED: DIPRIVAN 1% ONE (11:27)
[2019-04-14] MEDS ORDERED: ROBINUL ONE (11:27)
[2019-04-14] MEDS ORDERED: EPINEPHRINE ONE (11:39)
[2019-04-14] MEDS ORDERED: XYLOCAINE 2% VISCOUS ONE (11:39)
[2019-04-14] MEDS ORDERED: SODIUM CHLORIDE 0.9% 20 ML ONE (11:39)
[2019-04-14] MEDS ORDERED: XYLOCAINE 2% ONE (11:39)
[2019-04-14] MEDS ORDERED: KETAMINE ONE (12:14)
[2019-04-14] MEDS ORDERED: LASIX IV ONE (12:15)
--- NOTE | 2019-04-14 13:44 | OPERATIVE NOTE ---
PROCEDURE DATE: REFERRING PHYSICIAN: Dr. Jeffries. PROCEDURE PERFORMED: Bronchoscopy. INDICATION: Right lower lobe lung tumor and postobstructive pneumonia. DESCRIPTION OF PROCEDURE: Conscious sedation was administered by Anesthesia and local sedation with local lidocaine. Fluoroscopy scanning used for sampling guidance. Before the procedure, the heparin was held since yesterday. Aspirin and Plavix held about 13 days ago and also additionally today, the patient received fresh frozen plasma. A flexible bronchoscope was passed through right nostril, normal vocal cord movements. All major segments visualized. In the truncus intermedius, we noticed a foreign body that was mobile with brushing and we extracted it using a cysto basket. It ended up looking like a green keita or basil, and then we proceeded inspecting the other segments and subsegments and in the right middle lobe segment, we have noticed a blocking tumor blocking about 90 to 95 percent, whitish material with a fleshy looking nature. We did instill the diluted epinephrine to prevent bleeding. Then we took brushings and endobronchial biopsies and transbronchial biopsies with fluoroscopy guidance. The patient had minimal bleeding with less than 5 to 10 mL and also again, diluted epinephrine was instilled locally. By that time, the scope was pulled. There was no significant bleeding. Fluoroscopy scanning showed no significant pneumothorax; however, an official chest x-ray is also requested. IMPRESSION: 1. Truncus intermedius foreign body, likely a green keita aspiration or basil. See pictures. 2. 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 PLAN: Awaiting cytology, pathology and microbiology results. cc: Clement Oates MD
--- NOTE | 2019-04-14 13:48 | Diag Imaging Result Doc PS360 ---
EXAM: CHEST-PORTABLE 04/14/2019 HISTORY: post bronc TECHNIQUE: AP portable at 1325 COMMENT: There is ill-defined opacity in the right lower lobe which was also the case at the time the previous study of 04/13/2019. There may be some additional platelike opacity. IMPRESSION: Worsened atelectasis right lower lobe. Electronically signed by Steve Cassidy 04/14/2019 1:46 PM
[2019-04-14] MEDS: THERA M PLUS PO SCH (16:00)
[2019-04-14] MEDS: NORVASC PO SCH (16:00)
[2019-04-14] MEDS: OSCAL 500 + D PO SCH (16:00)
[2019-04-14] MEDS: COLACE PO SCH ×2 (18:45→22:21)
--- NOTE | 2019-04-14 18:45 | PROVIDER PROGRESS NOTE ---
Progress Note Dr. Oates Progress Note/Pulmonary and or critical care Subjective: Patient is lying in bed on VM 50% with no acute distress noted. He states coughing has been improving, but still productive. He reports he did not have his breakfast. He is expecting bronchoscopy today. Objective: Vital Signs: T 97.5, NH 58, RR 21, BP 155/53 and SaO2 99% on VM 50%. Physical Examination: General: Lying in bed with no acute distress noted. HEENT: Normocephalic. Atraumatic. Trachea midline. Mucosa pink and relatively dry. Chest: Even and unlabored. No increased work of breathing or accessory muscle use. Symmetrical excursion. Auscultation reveals inspiratory crackles bilaterally. CVS: S1 and S2 with murmur noted. Abdomen: Soft. Nondistended. Obese. Normoactive bowel sounds in all 4 quadrants. Extremities: No pedal edema. No cyanosis. No clubbing. Neuro: A/O x3. Speech slow, but fluent. Following commands. Labs and Radiology: Laboratory Results 04/08/19 04/13/19 04/14/19 05:36 23:33 05:50 WBC RBC Hgb Hct MCV MCH MCHC RDW Std Deviation Plt Count MPV PTT (Heparin Protocol) 26.9 D Specimen Type ARTERIAL Sample Site R RADIAL pH 7.41 pCO2 57 H* pO2 72 HCO3 32.2 H Base Excess 9.4 H Danny Test YES A-a O2 Difference 213.0 Lactate 1.90 Liter Flow 15.0 Blood Gas Modality VENTIMASK FiO2 % 50.0 Sodium Potassium Chloride Carbon Dioxide Anion Gap BUN Creatinine Estimated GFR/1.73 m2 BUN/Creatinine Ratio Glucose Calculated Osmolality Calcium Blood Type Blood Type Confirm O NEGATIVE Antibody Screen 04/14/19 04/14/19 04/14/19 07:30 07:30 07:30 WBC 21.94 H RBC 4.40 L Hgb 12.6 L Hct 39.8 L MCV 90.5 MCH 28.6 MCHC 31.7 L RDW Std Deviation 16.4 H Plt Count 289 MPV 10.8 H PTT (Heparin Protocol) Specimen Type Sample Site pH pCO2 pO2 HCO3 Base Excess Danny Test A-a O2 Difference Lactate Liter Flow Blood Gas Modality FiO2 % Sodium 136 Potassium 4.5 Chloride 96 L Carbon Dioxide 30 Anion Gap 10 BUN 22 Creatinine 0.7 Estimated GFR/1.73 m2 > 60 BUN/Creatinine Ratio 31 Glucose 114 H Calculated Osmolality 276 Calcium 9.1 Blood Type O NEGATIVE Blood Type Confirm Antibody Screen NEGATIVE Assessment: DNR 1 Acute respiratory failure. 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 Bronchoscopy scheduled today. Right hilar adenopathy. COPD exacerbation. Dysphagia with negative swallow evaluation. Hyperkalemia. Plan: Continue current treatment and supportive care per admitting and other teams on the case. Supplemental oxygen and BiPAP as needed per clinical protocols. Antibiotics including Meropenem and Linezolid. Bronchodilators, mucomyst and IV Solu-Medrol (tapering down). Bronchoscopy scheduled today. Outpatient PET scan followup.
[2019-04-14] MEDS: DULCOLAX PR SCH ×3 (18:52→22:39)
[2019-04-14] MEDS: MIRALAX PO SCH (18:53)
[2019-04-14 21:17] LABS: SODIUM 141 mmol/L (136-145)
[2019-04-14 21:18] LABS: CHLORIDE 98 mmol/L (98-107); POTASSIUM 4.9 mmol/L (3.5-5.1); TCO2 22 mmol/L (25-35)
[2019-04-14 21:19] LABS: AGAP 21
--- NOTE | 2019-04-14 22:53 | PROGRESS NOTE ---
DATE: 04/14/2019 INTERVAL HISTORY: He underwent bronchoscopy and the food particle was removed. He also had a lung mass which was biopsied. Mr. Williamson denies any complaint. He states he is breathing okay on Ventimask. PHYSICAL EXAMINATION: Vital signs: Temperature 97.4 degrees, pulse 83, respiratory rate 21, blood pressure 144/56, saturating 98% on Venturi mask. General: Not in acute distress. HEENT: Oral cavity is moist. Lungs: He has diminished air entry in right infrascapular region. Inspiratory crackles. No end-expiratory wheezes. Cardiovascular: S1, S2, normal, no gallop. He has a systolic murmur affecting 2nd intercostal space. Abdomen: Soft, nontender. Extremities: He has bilateral mild lower extremity edema. genitourinary: He has urine catheter. Neurologic: He is alert. He has he has been able to answer questions appropriately. LABS: He continues to have leukocytosis of 21,000, hemoglobin 12.6, platelet 289,000. Bicarbonate of 57. Normal kidney function. No positive microbiological data. ASSESSMENT AND PLAN: 1. Acute on chronic hypoxic hypercapnic respiratory failure. 2. Postoperative right lower lobe pneumonia leading to acute chronic obstructive pulmonary disease exacerbation. 3. 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 4. Dysphagia status post modified barium swallow. 5. Atrial fibrillation, currently rate controlled. 6. History of paroxysmal atrial fibrillation, currently normal sinus rhythm. 7. History of cerebrovascular accident, on dual antiplatelet therapy. 8. Sepsis, resolved. PLAN: Continue patient on oxygenation and wean down. I will continue him on intravenous antibiotics. Unfortunately, continues to have leukocytosis and looking at the records, he has had leukocytosis since late 2018. I appreciate oncology recommendations if he would need further evaluation of this outpatient. I will wean down oxygen. Continue intravenous antibiotics and based on that, I will consider discharging him in next 24 to 48 hours, if I would be able to wean him down to nasal cannula. I called the patient's daughter, informed her about patient's clinical condition, answered all of her questions. cc: Dylon Carranza MD
[2019-04-15] MEDS: MERREM 1 GM in NS 50 ML IV SCH ×3 (00:48→16:52)
[2019-04-15] MEDS: DUONEB (A & A) INH SCH ×6 (03:30→22:57)
[2019-04-15] MEDS: SYSTANE EYE DROPS BOTH EYES SCH ×3 (08:30→22:29)
[2019-04-15] MEDS: MUCOMYST 20% INH SCH ×2 (08:32→19:33)
[2019-04-15] MEDS: ZYVOX 600 MG/D5W 600 MG/300 ML IVPB IV SCH ×2 (08:42→22:15)
[2019-04-15] MEDS ORDERED: SOLU-MEDROL IV SCH (09:00)
[2019-04-15] MEDS: DULCOLAX PR SCH ×2 (10:31→22:32)
[2019-04-15] MEDS: MIRALAX PO SCH (10:31)
[2019-04-15] MEDS: OSCAL 500 + D PO SCH (10:31)
[2019-04-15] MEDS: PROTONIX IV SCH (10:31)
[2019-04-15] MEDS: NORVASC PO SCH (10:32)
[2019-04-15] MEDS: THERA M PLUS PO SCH (10:32)
[2019-04-15] MEDS: COLACE PO SCH ×2 (10:32→22:29)
--- NOTE | 2019-04-15 13:35 | HEMO/ONC CONSULTATION ---
DATE: 04/15/2019 REASON FOR CONSULTATION: Lung mass. HISTORY OF PRESENT ILLNESS: Mr. Williamson is a 73-year-old male who was admitted to the hospital on April 04 with complaints of increasing shortness of breath. The patient is a resident at [facility]. He claims he had been coughing up green colored phlegm. During his assessment in the ER, he became very tachypneic with a very high work of breathing. He was admitted with right basilar consolidation consistent [place] pneumonia[place] [address] with a normal lactate. Over the last 2 weeks, Pulmonology has been involved and several tests have been performed. On the , a chest CT was performed which showed an endobronchial mass in the distal bronchus intermedius or middle lobe bronchus with a near complete atelectasis of the right middle lobe and atelectasis and/or postobstructive pneumonia in the right lower lobe. There is also right hilar adenopathy. On 04/14/2019, Dr. Oates performed a bronchoscopy which revealed a truncus intermedius foreign body that was removed as well as a right middle lobe tumor, likely representing cancer that was 95% blocking. At this time, we are continuing to await pathology. The patient tolerated the procedure very well. Upon meeting the patient this morning, he seemed to have a flat affect. He seemed a bit depressed and slow to speak. He was aware of the tumor that was found. The patient denied any pain or complaints. He denied any acute or significant events that have occurred lately. The patient states he feels okay. His appetite is good. He has no complaints. PAST MEDICAL HISTORY: 1. CVA 5 years ago with trace right-sided paresis, residual. He is nonambulatory. He uses a wheelchair. 2. Hypertension. 3. COPD, usually 2 L of oxygen at night and p.r.n. 4. History of paroxysmal atrial fibrillation. PAST SURGICAL HISTORY: Bilateral cataract removal. SOCIAL HISTORY: He is a former smoker, quit smoking about a year ago. Denies alcohol or illicit drugs. ALLERGIES: Apixaban. HOME MEDICATIONS: Bisacodyl, amlodipine, aspirin, Colace, MiraLAX, calcium with vitamin D3, Plavix, Protonix, Robitussin, sertraline, Spiriva, Symbicort, Systane eye drops, multivitamins, B12, Zantac, albuterol, Tessalon, Zofran. REVIEW OF SYSTEMS: This was still difficult to obtain. The patient was drowsy and depressed. Nurse states that is the way he has been. He was slow to answer or did not answer questions. He denied pain. He denied complaint. PHYSICAL EXAMINATION: Vital Signs: Temperature 97.5 degrees, pulse rate 74, respiratory rate 18, blood pressure 146/52, O2 saturation 95% on venti mask at 6 L. He is in 0/10 pain. General: The patient appears comfortable, in no acute distress. HEENT: Sclerae anicteric. PERRLA. Oral mucosa is normal. Respiratory: Inspiratory crackles noted. Diminished breath sounds. Normal respiratory effort. Cardiovascular: Normal S1, S2. Regular rate and rhythm. Gastrointestinal: Soft, nondistended, nontender. Extremities: Trace lower extremity edema. Genitourinary: Patient has a urinary catheter in place. Neurological: He is alert. LABORATORY DATA: No labs were run today. Yesterday's labs, 04/14/2019, WBCs 21.94, hemoglobin 12.6, hematocrit 39.8, platelet count 289,000. Creatinine 0.7, calcium 9.1. CEA 5.1. RADIOLOGY: Chest x-ray 04/14/2019, worsened atelectasis in the right lower lobe. ASSESSMENT AND PLAN: 1. Acute on chronic hypoxic, hypercapnic respiratory failure. Nursing staff is attempting to wean the patient down on oxygen, he is currently on 6 L on a Ventimask and doing well. 2. Postoperative right lower lobe pneumonia leading to acute chronic obstructive pulmonary disease exacerbation. The patient is improving. Continue recommendations per Pulmonology and hospital staff. 3. 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 We are waiting biopsy results. We will obtain a PET scan for the patient outpatient. We will continue to follow. 4. Deep venous thrombosis prophylaxis. Resume the patient's Plavix when he is able to. The patient should have SCDs or pneumatic devices on while not on any anticoagulant. 5. Nutrition and deconditioning. The patient needs protein shakes. He needs to be maintaining his weight. He has lost weight since being in the hospital. Please ensure he is eating and drinking protein shakes. Dictated by CHAIM Thomas for Ethan Esposito MD As above. Patient is minimally mobile at baseline. Reports that he lives in a assisted. Discussed with Dr. Carranza. Ok for discharge from my standpoint. We will follow up on path and discuss with patient and family at their outpatient visit. Ethan Esposito MD cc: Ethan Esposito MD [facility]
[2019-04-15] MEDS ORDERED: LASIX PO ONE (16:44)
--- NOTE | 2019-04-15 19:31 | PROVIDER PROGRESS NOTE ---
Progress Note Dr. Oates Progress Note/Pulmonary and or critical care Subjective: Patient is lying in bed on NC 5L with no acute distress noted. He states he is feeling a little bit better. He does have dry cough once in a while. He has no pain, hemoptysis or sore throat at this time. Objective: Vital Signs: T 98.6, UT 87, RR 20, BP 119/65 and SaO2 92% on NC 5L. Physical Examination: General: Lying in bed with no acute distress noted. HEENT: Normocephalic. Atraumatic. Trachea midline. Mucosa pink and relatively dry. Chest: Even and unlabored. No increased work of breathing or accessory muscle use. Symmetrical excursion. Auscultation reveals inspiratory crackles bilaterally. CVS: S1 and S2 with murmur noted. Abdomen: Soft. Nondistended. Obese. Normoactive bowel sounds in all 4 quadrants. Extremities: No pedal edema. No cyanosis. Clubbing noted. Neuro: A/O x3. Speech slow, but fluent. Following commands. Labs and Radiology: Laboratory Results 04/14/19 04/14/19 04/14/19 07:30 12:34 12:34 Sodium 141 Potassium 4.9 Chloride 98 Carbon Dioxide 22 L Anion Gap 21 Carcinoembryonic Ag AFB Smear SEE COMMENTS Fungal Smear SEE COMMENTS 04/14/19 21:19 Sodium Potassium Chloride Carbon Dioxide Anion Gap Carcinoembryonic Ag 5.1 H AFB Smear Fungal Smear Assessment: DNR 1 Acute respiratory failure. Slowly improving. 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 Bronchoscopy with endobronchial biopsy on 04/14/19 revealed truncus intermedius foreign body and right middle lobe tumor likely representing cancer with 95% blocking. Right hilar adenopathy. COPD exacerbation. Dysphagia with negative swallow evaluation. Hyperkalemia. Plan: Continue current treatment and supportive care per admitting and other teams on the case. Supplemental oxygen and BiPAP as needed per clinical protocols. Antibiotics including Meropenem and Linezolid. Bronchodilators, mucomyst and IV Solu-Medrol (tapering down). Outpatient PET scan followup.
--- NOTE | 2019-04-15 20:45 | PROGRESS NOTE ---
DATE: 04/15/2019 INTERVAL HISTORY: No acute events overnight. SUBJECTIVE: Mr. Williamson denies any chest pain or shortness of breath. He has an occasional cough. His oxygen has been able to be turned down to 4 L and he is saturating 92%. VITALS: Temperature 98.6 degrees, pulse 87, respiratory rate 20, blood pressure 119/65. He is saturating 93% on 4 L nasal cannula. PHYSICAL EXAMINATION: General: He is not in acute distress. Oral Cavity: Moist. Respiratory: He has decreased air entry with inspiratory crackles in right infrascapular region. No wheeze or rhonchi. Cardiac: S1, S2 normal. No murmur, rub or gallop. Abdomen: Obese, soft, nontender. No lymphedema. He has a urine catheter. 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 He is able to engage in the conversation meaningfully. LABS: There is no CBC or BMP today. ASSESSMENT: 1. Acute on chronic hypoxic hypercapnic respiratory failure. 2. Postobstructive right lower lobe pneumonia with acute chronic obstructive pulmonary disease exacerbation. 3. 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 Pending biopsy report. 4. Dysphagia, status post modified barium swallow which was unremarkable. 5. Atrial fibrillation, currently rate well controlled, and paroxysms of atrial fibrillation, currently in normal sinus rhythm. 6. History of cerebrovascular accident, on dual anti-platelet therapy and sepsis on presentation. PLAN: 1. I will wean down oxygen. I will keep patient on intravenous antibiotics and intravenous steroids, the frequency of which I have a decreased and my plan is to stop the antibiotics and steroids in the next 24 hours. I will also give him a dose of oral Lasix and discontinue Joshua catheter. 2. Oncology team has been consulted, appreciate further recommendation. Biopsy report is pending. 3. Plan is to discharge the patient back to the care home in next 24 hours if his oxygen requirement goes down. I had a detailed discussion about plan of care with his daughter on the phone yesterday. All of her questions were answered. cc: Dylon Carranza MD
[2019-04-16] MEDS: DUONEB (A & A) INH SCH ×6 (03:35→23:32)
[2019-04-16 07:36] LABS: ALLEN TEST YES; BE 11.5 mmoll (-3.0-3.0); BLOOD TYPE ARTERIAL; HCO3-(ACT) 33.8 mmoll (20.0-26.0); PO2(98.6) 69 mmHg (60-100); SAMPLE BLOOD; pH(98.6) 7.41 (7.35-7.45)
[2019-04-16 07:43] LABS: MODALITY CANNULA; PCO2(98.6) 61 mmHg (35-45)
--- NOTE | 2019-04-16 07:55 | Diag Imaging Result Doc PS360 ---
EXAM: CHEST-1 VIEW INDICATION: SOB TECHNIQUE: One view COMPARISON: 04/14/2019 FINDINGS: Right lower lobe opacification is again identified. It appears slightly less dense than the previous study. No new consolidation is identified. Cardiac silhouette is stable. IMPRESSION: Interval slight improvement. Electronically signed by Jakob Brewer 04/16/2019 7:53 AM
[2019-04-16] MEDS: MUCOMYST 20% INH SCH ×2 (08:24→19:58)
[2019-04-16 08:52] LABS: HEMATOCRIT 35.4 % (42.0-52.0); HEMOGLOBIN 11.7 g/dL (14.0-18.0); LYMPH% 10.2 % (20.5-51.1); MCH 29.6 PG (27-31); MCHC 33.1 g/dL (33-37); MCV 89.6 FL (81-99); PLT 233 X1000 (130-400); RBC 3.95 XMIL (4.7-6.1); RDW 16.9 % (11.5-14.5); WBC 23.35 X1000 (4.8-10.8)
[2019-04-16 08:55] LABS: BANDS 2 % (0-1); LYMPHS 16 % (21-51); MONO 2 % (1-9); SEGS 74 % (42-75)
[2019-04-16] MEDS: OSCAL 500 + D PO SCH (10:16)
[2019-04-16] MEDS: COLACE PO SCH ×2 (10:16→21:04)
[2019-04-16] MEDS: THERA M PLUS PO SCH (10:17)
[2019-04-16] MEDS: NORVASC PO SCH (10:17)
[2019-04-16] MEDS: SYSTANE EYE DROPS BOTH EYES SCH ×3 (10:17→21:11)
[2019-04-16] MEDS: MIRALAX PO SCH (10:17)
[2019-04-16] MEDS: DULCOLAX PR SCH ×2 (10:18→21:04)
[2019-04-16] MEDS: LEVAQUIN PO SCH (14:56)
[2019-04-16 15:01] LABS: URINE SOURCE CLEAN CATCH
[2019-04-16 15:11] LABS: BILIRUBIN URINE NEGATIVE (NEGATIVE); BLOOD URINE NEGATIVE (NEGATIVE); COLOR YELLOW; GLUCOSE URINE NEGATIVE (NEGATIVE); KETONE URINE NEGATIVE (NEGATIVE); LEUKOCYTES URINE NEGATIVE (NEGATIVE); NITRITE URINE NEGATIVE (NEGATIVE); PROTEIN URINE NEGATIVE (NEGATIVE); TURBIDITY URINE CLEAR (CLEAR); UROBILINOGEN URINE NORMAL (NORMAL)
[2019-04-16 15:12] LABS: UR EPITHELIAL CELLS <10 /HPF (<10); URINE BACTERIA NEGATIVE /HPF; URINE RBC <10 /HPF (<10); URINE WBC <10 /HPF (<10)
--- NOTE | 2019-04-16 15:19 | DISCHARGE SUMMARY ---
ADMISSION DATE: 04/04/2019 DISCHARGE DATE: DATE OF DISCHARGE: 04/17/2019 DISCHARGE DISPOSITION: Back to senior care facility. DISCHARGE CONDITION: Hemodynamically stable. He is on 4 to 5 L nasal cannula oxygen saturating more than 92%. Patient is eating well on mechanical soft diet. CODE STATUS: DNR level 1. DISCHARGE DIAGNOSIS: 1. Acute hypoxic hypercapnic respiratory failure on chronic hypoxic hypercapnic respiratory failure. 2. Right lower lung postobstructive pneumonia due to enterococci sensitive to penicillin. 3. Right lower lung mass status post biopsy suspicious for cancer pending pathology. 4. Dysphagia with normal modified barium swallow. 5. Urinary retention. 6. Atrial fibrillation. 7. Sepsis due to right lower lung pneumonia. 8. Acute chronic obstructive pulmonary disease exacerbation. OTHER DIAGNOSIS: 1. History of cerebrovascular accident. 2. History of paroxysmal atrial fibrillation on dual antiplatelet therapy. 3. Essential hypertension. 4. Chronic gastroesophageal reflux disease. 5. History of chronic obstructive pulmonary disease on home oxygen. 6. Essential hypertension. DISCHARGE MEDICATIONS: 1. Bisacodyl 10 mg at nighttime for constipation. 2. Amlodipine 10 mg in the morning time. 3. Aspirin 81 mg daily. 4. Docusate 100 mg b.i.d. 5. MiraLAX 17 g daily. 6. Calcium vitamin D3 1 tablet in the morning time. 7. Plavix 75 mg in the morning. 8. Pantoprazole 40 mg daily. 9. Robitussin 10 mL every 4 hours as needed for cough. 10. Sertraline 50 mg in the morning. 11. Tiotropium 1 puff inhaled in the morning time. 12. Symbicort 2 puffs inhaled b.i.d. 13. Systane eye drops 1 drop on both eye t.i.d. 14. Multivitamin tablet 1 tablet daily. 15. Albuterol ipratropium nebulization every 4 hours. 16. Augmentin 875 mg twice daily for 7 days for pneumonia. 17. Benzonatate 100 mg t.i.d. 18. Ondansetron 4 mg every 6 hours as needed for nausea and vomiting. VITALS: At the time of current dictation temperature is 97.6 degrees, pulse 57, respiratory 16, blood pressure 160/54, he is saturating 97% on 4 L nasal cannula. PHYSICAL EXAMINATION: Obese not in acute distress. Oral cavity is moist. Decreased air entry in right infrascapular region with inspiratory crackles. Adequate air entry on left lung marrufo. No wheeze or rhonchi. S1, S2 normal. No murmur or gallop. Appears regular. Abdomen: Obese, soft, nontender. No lower extremity edema. He was alert. He was able to answer questions appropriately, follow simple commands. SIGNIFICANT LABS: At the time of discharge WBC 23,000, hemoglobin 11.7, platelet 233,000, pH of 7.41, pCO2 61, PO2 69, saturating on 5 L nasal cannula. Potassium 4.9, BUN 22, creatinine 0.7, sodium 141. Carcinoembryonic antigen was elevated to 5.1. Microbiology during hospital admission sputum culture, blood culture, influenza screen was negative. Bronchial washings cultures are pending. SIGNIFICANT IMAGING: Chest x-ray on April 04 had right basilar consolidation. Echocardiogram on April 05 had ejection fraction of 63%. Normal diastolic function though it was a challenging study. Chest CT on April 05 had endobronchial mass in the distal bronchus intermedius or middle lobe bronchus with near complete atelectasis of the right middle lobe and atelectasis and/or postobstructive pneumonia in the right lower lobe, he also had right hilar adenopathy. Chest x-ray on 04/16/2019 had interval slight improvement of right lung opacification. Electrocardiogram on April 04 had normal sinus rhythm, right bundle branch block and left anterior fascicular block. Modified barium swallow on April 12 essentially had negative exam. PROCEDURES: On 04/14/2019 patient underwent right lower lobe lung tumor and postobstructive pneumonia evaluation with bronchoscopy where he was found to have foreign body in the truncus intermedius likely a green keita or basal aspiration, patient also had right middle lobe tumor likely representing cancer which was 95% blocking, the final pathology report is pending. HOSPITAL COURSE SUMMARY: Mr. Williamson is 73 years old man with past medical history of CVA, COPD, chronic hypoxic respiratory failure, paroxysmal atrial fibrillation who came in with chief complaints of shortness of breath with cough with green colored phlegm. In the emergency room he was found to be tachypneic. His temperature was 100 degrees, pulse was 97, respiratory rate was 25 to 30, blood pressure was 130/60 and his initial oxygen saturation was 92%. He was started on BiPAP and hospitalist team was consulted further management. Mr. Teri was started on inhaled bronchodilators, BiPAP, intravenous antibiotics and CT scan of the chest was performed which had detected right-sided endobronchial mass. Since patient was on dual anti-platelet therapy for his atrial fibrillation both of them were held and he was briefly started on heparin drip for secondary CVA prophylaxis for his atrial fibrillation. With inhaled bronchodilators, intravenous antibiotics patient's clinical condition improved. He did not have any evidence of fever, his shortness of breath and work of breathing improved and at the time of discharge he would be discharged on oral antibiotics. Apparently he still has persistent leukocytosis however he has been on intravenous meropenem, intravenous linezolid since last 5 days which did not show any change in leukocytosis and patient had clinically improved without any residual shortness of breath or cough so it was decided to just complete short course of oral antibiotic. A urinalysis has been performed the result of which is pending to rule out any catheter associated urinary tract infection. Regarding endobronchial mass patient had bronchoscopy and he was found to have a mass for which biopsy has been performed. Oncology team has been consulted. Patient should have outpatient followup with Dr. Esposito for further evaluation and discussion about treatment options. Patient also underwent modified barium swallow which did not have any evidence of cory aspiration though during bronchoscopy he was found to have green keita in truncus intermedius so he should be kept on aspiration precaution with mechanical soft diet. He should also continue oxygenation 4 to 5 L/minute and continue physical therapy as tolerated. More than 30 minutes time was spent discharging patient. Plan of care discussed with the patient. All of his questions were answered. cc: Dylon Carranza MD MTDD
--- NOTE | 2019-04-16 15:57 | PROGRESS NOTE ---
DATE: 04/16/2019 INTERVAL HISTORY: No acute events overnight. The patient's oxygen was able to be titrated down to 5 L nasal cannula and he has been saturating 96 to 97 percent. His urine catheter was removed. SUBJECTIVE: Mr. Williamson denies new complain. He denies any chest pain, shortness of breath. He denies unusual cough. He denies any nausea, vomiting, or abdominal pain. We discussed about pending biopsy report. VITALS: Currently temperature of 97.6 degrees, pulse 57, respiratory rate 16, blood pressure 160/54. He is saturating 97% on 5 L nasal cannula. PHYSICAL EXAMINATION: Mr. Williamson is not in acute distress. Oral Cavity: Moist. Lungs: Air entry decreased in right infrascapular region with inspiratory crackles. Cardiac: S1, S2 normal, no murmur, rub or gallop. Abdomen: Soft, nontender. Extremities: No lower extremity edema. 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 LABS: Suggestive of WBC of 23,000, hemoglobin 9.7, his platelet is 233,000. Microbiology, no new data. His urinalysis performed did not have any pyuria. ASSESSMENT AND PLAN: 1. Acute on chronic hypoxic hypercapnic respiratory failure. 2. Postoperative right lower lobe pneumonia with acute chronic obstructive pulmonary disease exacerbation and sepsis on presentation. 3. Right lung endobronchial mass, status post bronchoscopy and biopsy. 4. Dysphagia, status post normal modified barium swallow. 5. Paroxysmal atrial fibrillation, on dual anti-platelet therapy. 6. History of CVA. PLAN: His leukocytosis is nonspecific. He has been on intravenous meropenem and linezolid for last 5 days, which did not help with his leukocytosis. He is symptomatically improved. His oxygen demand has decreased. He is breathing well on nasal cannula and denies any cough or shortness of breath. I will treat him with short course of oral Levaquin. My plan is to [facility] him back to the [facility] within next 24 hours. Plan of care discussed with the patient, as well social psychologist team. cc: Dylon Carranza MD
--- NOTE | 2019-04-16 21:27 | PULMONOLOGY PROGRESS NOTE ---
DATE: 04/16/2019 SUBJECTIVE: The patient is awake, alert, and conversant. He remains on nasal cannula. Is without new complaints. OBJECTIVE: Vital Signs: The patient has been afebrile for the last 24 hours. Blood pressure 133/53, heart rate 77, respiratory rate 22, oxygen saturation 96% on 4 L per nasal cannula. HEENT: Pupils are equal and reactive. Oropharynx appears clear. Neck: Supple. Chest: Reveals occasional rhonchi bilaterally. Cardiac: S1-S2. Abdomen: Soft. Extremities: Without edema. LABORATORIES: Microbiology from bronchial washings is pending. Transbronchial biopsies from bronchoscopy are pending. White blood count 23,000, hemoglobin 11.5, platelet count 233,000. Arterial blood gas reveals a pH of 7.41, pCO2 of 61, PO2 of 69. IMPRESSION: 1. A 73-year-old with aspiration pneumonia. 2. Acute respiratory failure. 3. Endobronchial mass. 4. Dysphagia. 5. Chronic obstructive pulmonary disease exacerbation. PLAN: 1. Continue bronchial hygiene. 2. Continue antibiotics. 3. Await biopsy report. 4. Anticipate outpatient PET scan. cc: Ethan Stinson MD
[2019-04-17] MEDS: DUONEB (A & A) INH SCH ×3 (03:36→11:35)
[2019-04-17] MEDS: MUCOMYST 20% INH SCH (07:56)
[2019-04-17] MEDS: THERA M PLUS PO SCH (08:19)
[2019-04-17] MEDS: OSCAL 500 + D PO SCH (08:19)
[2019-04-17] MEDS: NORVASC PO SCH (08:19)
[2019-04-17] MEDS: DULCOLAX PR SCH (08:19)
[2019-04-17] MEDS: COLACE PO SCH (08:19)
[2019-04-17] MEDS: MIRALAX PO SCH (08:19)
[2019-04-17] MEDS: SYSTANE EYE DROPS BOTH EYES SCH ×2 (08:20→14:04)
[2019-04-17] MEDS: LEVAQUIN PO SCH (08:20)
[2019-04-17] MEDS ORDERED: AUGMENTIN PO SCH (09:00)
--- NOTE | 2019-04-17 12:15 | PROGRESS NOTE ---
DATE: 04/17/2019 INTERVAL HISTORY: No acute events overnight. His oxygen levels were able to be decreased to 3 L nasal cannula and still maintaining saturation more than 90%. Mr. Gonzalez subjectively denies any chest pain or shortness of breath at rest. He denies any unusual cough. He has been able to eat without any difficulty. VITALS: Temperature 97.9 degrees, pulse 65, respiratory 18, blood pressure 149/49, saturating 95% on 3 L nasal cannula. PHYSICAL EXAMINATION: Not in acute distress. Oral cavity is moist. Decreased air entry in right infrascapular region with mild inspiratory crackles. S1, S2 normal. No gallop. Abdomen is soft, nontender. No lower extremity edema. He does not have urine catheter. He is alert and oriented x3. LABS: No CBC or BMP today. Bronchial washing is growing Enterococcus faecalis and his antibiotics have been changed from Levaquin to Augmentin. Lung biopsy report is still pending. ASSESSMENT AND PLAN: 1. Acute on chronic hypoxic hypercapnic respiratory failure. 2. Post obstructive right lower lobe pneumonia with acute chronic obstructive pulmonary disease exacerbation and sepsis on presentation. 3. Enterococcus right lower lung pneumonia. 4. Right lung endobronchial mass, status post bronchoscopy and biopsy. Pending pathology results. 5. Paroxysmal atrial fibrillation, on dual antiplatelet therapy. 6. History of cerebrovascular accident. PLAN: I will change his antibiotics to Augmentin and will complete a 7-day course. Through the nurse I have notified [facility] facility of this change. I have also printed out an updated medication list. I called the patient's daughter and informed her about the patient's clinical condition, the fact that his oxygen requirements have been able to go down. I also informed her to get in touch with his cancer doctor in next week's time to have a discussion about the final pathology report as well as treatment options. I answered all of her questions. She is requesting me to write a prescription for portable oxygen device, which I will do if needed. cc: Dylon Carranza MD
[2019-04-17 14:32] VITALS: BP 123/69
== END 2019-04-17 15:15 | DRG 853 ==
LOC: SUPCPDRO → ED 12:46 → SUATTDRO 16:32 → EDIPHOLD 16:32 → 2N 21:01 → 3N 04-09 18:51
PROVIDERS: ATTEND Internal Medicine